=== PATIENT | female | born 1955 | race American Indian/Alaskan Native ===

== ENCOUNTER 2017-11-03 01:33 | Inpatient (IN) | payer OTHER ==
[2017-11-03] MEDS ORDERED: ATROVENT IH ONE (01:54)
[2017-11-03] MEDS ORDERED: PROVENTIL IH ONE (01:54)
--- NOTE | 2017-11-03 02:00 | Emergency Department Report ---
HPI - General Time Seen by Provider: 11/03/17 01:43 - HPI HPI: Room 23 The patient is a 62-year-old female presenting with a chief complaint of altered mental status last hypoxia. Per EMS the patient's last known well time was approximately 18:00. EMS reports family came home and found the patient unresponsive with agonal respirations and vomitus on her face. EMS was called. Upon arrival to the ED the patient had agonal respirations and was hypoxic with an SPO2 in the 80s. Subsequently patient was intubated using RSI Location: [See above] Duration: [See above] Quality: [See above] Severity: [See above] Modifying factors: [see above] Context: [see above] Mode of transportation: [not driving] ED Past Medical Hx - Past Medical History Hx Hypertension: Yes Hx COPD: Yes - Surgical History Additional Surgical History: Unknown - Family History Family history: no significant - Social History Smoking Status: Unknown if ever smoked - Medications Home Medications: Home Medications Medication Instructions Recorded Confirmed Last Taken Type Aspirin [Aspirin TAB] 325 mg PO DAILY 09/16/13 10/05/14 10/03/14 History amLODIPine [Norvasc] 10 mg PO DAILY 09/16/13 10/05/14 10/04/14 History Nitroglycerin [Nitrostat] 1 tab PO PRN PRN 10/05/14 10/05/14 10/05/14 History ED Review of Systems ROS: Stated complaint: RESPIRATORY DISTRESS Other details as noted in HPI Comment: Unobtainable due to pts medical conditions Physical Exam - Physical Exam Physical Exam: GENERAL: The patient is well-developed well-nourished female lying on stretcher with orange-colored emesis covering her face. Grossly obtunded HEENT: Normocephalic. Atraumatic. Pupils 3 mm- 2mm bilaterally NECK: Trachea midline CHEST/LUNGS: Faint wheezing auscultated bilaterally after intubation. HEART/CARDIOVASCULAR: Regular. There is no tachycardia. There is no gallop rub or murmur. ABDOMEN: Abdomen is soft, nontender. Patient has normal bowel sounds. There is no abdominal distention. SKIN: There is no rash. There is no edema. There is no diaphoresis. NEURO: The patient is grossly obtunded but moves all extremities well MUSCULOSKELETAL:There is no evidence of acute injury. - Intubation Time Out Performed: No Sedative: Versed Mg Given: 5 Paralytic: Succinylcholine Mg Given: 100 Laryngoscope: Amrita Size: 3 ET Tube Size: 7 Tube Secured Depth (cm): 21 Tube Secured Location: lips Tube Placement Confirmation: visualized tube passing t, equal breath sounds bilat, no breath sounds over epi, confirmation by capnometr Patient Tolerated Procedure: well, no complications Intubation Complications: none ED Medical Decision Making - Lab Data Result diagrams: 11/03/17 02:17 11/03/17 02:17 - Radiology Data Radiology results: report reviewed (CT head), image reviewed (CT head, chest x- ray) interpreted by me: Chest x-ray-ET tube place - Differential Diagnosis respiratory failure, COPD, ICH, ACS Critical care attestation.: If time is entered above; I have spent that time in minutes in the direct care of this critically ill patient, excluding procedure time. ED Disposition Clinical Impression: Respiratory failure, Altered mental status, Hyperammonemia Disposition: 09 OP ADMIT IP TO THIS HOSP Is pt being admited?: Yes Does the pt Need Aspirin: Yes Condition: Serious Referrals: PRIMARY CARE,MD [Primary Care Provider] - 3-5 Days Time of Disposition: 05:18 (hospitalist notified (Dr Isaac))
[2017-11-03] MEDS ORDERED: ATIVAN ONE (02:14)
[2017-11-03] MEDS ORDERED: ATIVAN IV ONE (02:14)
[2017-11-03] MEDS ORDERED: ZOFRAN ONE (02:15)
[2017-11-03 02:34] LABS: Hematocrit 44.5 % (30.3-42.9); Hemoglobin 14.9 gm/dl (10.1-14.3); Mean Corpuscular HGB Conc 34 % (30-34); Mean Corpuscular Hemoglobin 33 pg (28-32); Mean Corpuscular Volume 97 fl (79-97); Platelet Count 119 K/mm3 (140-440); Red Blood Count 4.58 M/mm3 (3.65-5.03); Red Cell Distribution Width 13.4 % (13.2-15.2)
--- NOTE | 2017-11-03 02:41 | XRay Report ---
FINAL REPORT PROCEDURE: XR CHEST 1V AP TECHNIQUE: Chest radiograph anteroposterior view. CPT 61987 HISTORY: respiratory arrest, status post intubation COMPARISON: No prior studies are available for comparison. FINDINGS: Heart: Normal. Mediastinum/Vessels: Normal. Lungs/Pleural space: There are no infiltrates, effusions or pneumothoraces.. Bony thorax: No acute osseous abnormality. Life support devices: Endotracheal tube is in the mid trachea.. IMPRESSION: No acute cardiopulmonary abnormality. Endotracheal tube is in the mid trachea.
[2017-11-03 02:52] LABS: Creatine Kinase MB 5.1 ng/mL (0.0-4.0)
[2017-11-03 02:53] LABS: Alanine Aminotransferase 43 units/L (7-56); Albumin 4.6 g/dL (3.9-5); BUN/Creatinine Ratio 18; Blood Urea Nitrogen 14 mg/dL (7-17); Calcium 8.7 mg/dL (8.4-10.2); Hemolysis Index 90
[2017-11-03] MEDS ORDERED: ARTIFICIAL TEARS OPHTH OINT OU PRN (03:27)
[2017-11-03] MEDS ORDERED: VASELINE LIP THERAPY TP PRN (03:27)
[2017-11-03] MEDS ORDERED: MAGNESIUM SULFATE 2GM/50ML 2 GM/50 ML BAG IV ONE (03:29)
[2017-11-03] MEDS ORDERED: NACL 0.9% 1000 ML 1,000 ML ONE ×2 (03:32→07:36)
[2017-11-03 03:49] LABS: INR 1.02 (0.87-1.13)
[2017-11-03 03:50] LABS: Partial Thromboplastin Time 27.4 Sec. (24.2-36.6)
[2017-11-03 04:00] LABS: Band Neutrophils # (Manual) 0.8 K/mm3; Total Cells Counted 100
[2017-11-03] MEDS ORDERED: MIDAZOLAM 100 MG in NACL 0.9% 80 ML IV SCH (04:00)
[2017-11-03 04:01] LABS: Large Platelets Few; Platelet Estimate Consistent w Auto; RBC Morphology Normal
[2017-11-03] MEDS ORDERED: CEPHULAC FEEDTUBE ONE (04:09)
--- NOTE | 2017-11-03 05:00 | Cat Scan Report ---
FINAL REPORT PROCEDURE: CT HEAD/BRAIN WO CON TECHNIQUE: Computerized tomography of the head was performed without contrast material. HISTORY: altered mental status COMPARISON: No prior studies are available for comparison. FINDINGS: Skull and scalp: Normal. Paranasal sinuses: There fluid in the sphenoid sinus.. Ventricles and subarachnoid spaces: Normal. Cerebrum: No evidence of hemorrhage, acute infarction or mass. There is an old lacunar infarct defect in the right periventricular white matter. Cerebellum and brainstem: No evidence of hemorrhage, acute infarction or mass. Vasculature: Normal. Comments: None. IMPRESSION: There is no hemorrhage, edema, mass, mass effect or midline shift. There is an old lacunar infarct defect in the right periventricular white matter. There is sphenoid sinusitis.
[2017-11-03] MEDS ORDERED: SODIUM CHLORIDE FLUSH SYRINGE 10 ML IV PRN (06:07)
[2017-11-03] MEDS ORDERED: ZOFRAN IV PRN (06:07)
[2017-11-03] MEDS ORDERED: TYLENOL PO PRN (06:07)
--- NOTE | 2017-11-03 06:25 | History and Physical Report ---
History of Present Illness Date of examination: 11/03/17 Chief complaint: Shortness of breath and altered mental status per the patient's History of present illness: Patient is a 62-year-old -[place] female with history of hypertension and COPD, who was brought to the ED via EMS on account of 3 weeks history of worsening shortness of breath. Of note, history was obtained from the because the patient is intubated. The stated that her shortness of breath became worse last night. At some point, she went to the bathroom and subsequently, he found her on the floor passed out and responsive. He then called 911. No reported preceding history of fever, cough, headaches, chest pain, nausea or vomiting. Past History Past Medical History: COPD, hypertension Past Surgical History: No surgical history Social history: smoking (ex-smoker, quit 4 years. No reported history of alcohol or illicit drug use ) Family history: other (asthma) Medications and Allergies Allergies Allergy/AdvReac Type Severity Reaction Status Date / Time Penicillins Allergy Rash Verified 10/05/14 01:41 Home Medications Medication Instructions Recorded Confirmed Last Taken Type Aspirin [Aspirin TAB] 325 mg PO DAILY 09/16/13 10/05/14 10/03/14 History amLODIPine [Norvasc] 10 mg PO DAILY 09/16/13 10/05/14 10/04/14 History Nitroglycerin [Nitrostat] 1 tab PO PRN PRN 10/05/14 10/05/14 10/05/14 History Active Meds: Active Medications Acetaminophen (Tylenol) 650 mg PO Q6HR PRN PRN Reason: For Pain/Fever/Headache Enoxaparin Sodium (Lovenox) 40 mg SUB-Q QDAY PARTH Famotidine (Pepcid) 20 mg IV BID PARTH Hydrophilic Ointment (Vaseline Lip Therapy) 1 applic TP Q2HR PRN PRN Reason: Dry Lips Midazolam HCl 100 mg/ Sodium (Chloride) 100 mls @ 2 mls/hr IV TITR PAR[facility]; Protocol Last Admin: 11/03/17 04:00 Dose: 2 mg/hr, 2 mls/hr Levofloxacin/Dextrose (Levaquin 750mg/150ml) 750 mg in 150 mls @ 100 mls/hr IV Q24HR PARTH; Protocol Sodium Chloride (Nacl 0.9% 1000 Ml) 1,000 mls @ 100 mls/hr IV DIRECT [facility] Methylprednisolone Sodium Succinate (Solu-Medrol) 125 mg IV Q8HR [facility] Multi-Ingred Cream/Lotion/Oil/Oint (Artificial Tears Ophth Oint) 1 applic OU Q4HR PRN PRN Reason: Dry Eye(s) Ondansetron HCl (Zofran) 4 mg IV Q8H PRN PRN Reason: Nausea And Vomiting Sodium Chloride (Sodium Chloride Flush Syringe 10 Ml) 10 ml IV BID PARTH Sodium Chloride (Sodium Chloride Flush Syringe 10 Ml) 10 ml IV PRN PRN PRN Reason: LINE FLUSH Review of Systems ROS unobtainable: due to endotracheal tube Exam - Constitutional Vitals: Temp Pulse Resp BP Pulse Ox 105 H 18 97/61 96 11/03/17 04:11 11/03/17 02:54 11/03/17 04:11 11/03/17 04:11 General appearance: Present: no acute distress, other (patient is intubated and sedated) - EENT Eyes: Present: PERRL ENT: other (endotracheal tube in place) - Neck Neck: Present: supple - Respiratory Respiratory effort: normal Respiratory: bilateral: diminished - Cardiovascular Rhythm: other (tachycardia with regular rhythm) Heart Sounds: Present: S1 & S2 - Extremities Extremities: pulses symmetrical, No edema - Abdominal General gastrointestinal: Present: soft, non-tender, non-distended, normal bowel sounds - Integumentary Integumentary: Present: warm, dry - Psychiatric Psychiatric: other (could not be assessed because patient is intubated and sedated) - Neurologic Neurologic: other (could not be assessed because patient is intubated and sedated) Results - Labs CBC & Chem 7: 11/03/17 02:17 11/03/17 02:17 Labs: Laboratory Last Values WBC 12.9 K/mm3 (4.5-11.0) H 11/03/17 02:17 RBC 4.58 M/mm3 (3.65-5.03) 11/03/17 02:17 Hgb 14.9 gm/dl (10.1-14.3) H 11/03/17 02:17 Hct 44.5 % (30.3-42.9) H 11/03/17 02:17 MCV 97 fl (79-97) 11/03/17 02:17 MCH 33 pg (28-32) H 11/03/17 02:17 MCHC 34 % (30-34) 11/03/17 02:17 RDW 13.4 % (13.2-15.2) 11/03/17 02:17 Plt Count 119 K/mm3 (140-440) L 11/03/17 02:17 Add Manual Diff Complete 11/03/17 02:17 Total Counted 100 11/03/17 02:17 Seg Neuts % (Manual) 61.0 % (40.0-70.0) 11/03/17 02:17 Band Neutrophils % 6.0 % 11/03/17 02:17 Lymphocytes % (Manual) 29.0 % (13.4-35.0) 11/03/17 02:17 Reactive Lymphs % (Man) 0 % 11/03/17 02:17 Monocytes % (Manual) 1.0 % (0.0-7.3) 11/03/17 02:17 Eosinophils % (Manual) 1.0 % (0.0-4.3) 11/03/17 02:17 Basophils % (Manual) 2.0 % (0.0-1.8) H 11/03/17 02:17 Metamyelocytes % 0 % 11/03/17 02:17 Myelocytes % 0 % 11/03/17 02:17 Promyelocytes % 0 % 11/03/17 02:17 Blast Cells % 0 % 11/03/17 02:17 Nucleated RBC % Not Reportable 11/03/17 02:17 Seg Neutrophils # Man 7.9 K/mm3 (1.8-7.7) H 11/03/17 02:17 Band Neutrophils # 0.8 K/mm3 11/03/17 02:17 Lymphocytes # (Manual) 3.7 K/mm3 (1.2-5.4) 11/03/17 02:17 Abs React Lymphs (Man) 0.0 K/mm3 11/03/17 02:17 Monocytes # (Manual) 0.1 K/mm3 (0.0-0.8) 11/03/17 02:17 Eosinophils # (Manual) 0.1 K/mm3 (0.0-0.4) 11/03/17 02:17 Basophils # (Manual) 0.3 K/mm3 (0.0-0.1) H 11/03/17 02:17 Metamyelocytes # 0.0 K/mm3 11/03/17 02:17 Myelocytes # 0.0 K/mm3 11/03/17 02:17 Promyelocytes # 0.0 K/mm3 11/03/17 02:17 Blast Cells # 0.0 K/mm3 11/03/17 02:17 WBC Morphology Not Reportable 11/03/17 02:17 Hypersegmented Neuts Not Reportable 11/03/17 02:17 Hyposegmented Neuts Not Reportable 11/03/17 02:17 Hypogranular Neuts Not Reportable 11/03/17 02:17 Smudge Cells Not Reportable 11/03/17 02:17 Toxic Granulation Not Reportable 11/03/17 02:17 Toxic Vacuolation Not Reportable 11/03/17 02:17 Dohle Bodies Not Reportable 11/03/17 02:17 Pelger-Huet Anomaly Not Reportable 11/03/17 02:17 Jose Rods Not Reportable 11/03/17 02:17 Platelet Estimate Consistent w auto 11/03/17 02:17 Clumped Platelets Not Reportable 11/03/17 02:17 Plt Clumps, EDTA Not Reportable 11/03/17 02:17 Large Platelets Few 11/03/17 02:17 Giant Platelets Not Reportable 11/03/17 02:17 Platelet Satelliting Not Reportable 11/03/17 02:17 Plt Morphology Comment Not Reportable 11/03/17 02:17 RBC Morphology Normal 11/03/17 02:17 Dimorphic RBCs Not Reportable 11/03/17 02:17 Polychromasia Not Reportable 11/03/17 02:17 Hypochromasia Not Reportable 11/03/17 02:17 Poikilocytosis Not Reportable 11/03/17 02:17 Anisocytosis Not Reportable 11/03/17 02:17 Microcytosis Not Reportable 11/03/17 02:17 Macrocytosis Not Reportable 11/03/17 02:17 Spherocytes Not Reportable 11/03/17 02:17 Pappenheimer Bodies Not Reportable 11/03/17 02:17 Sickle Cells Not Reportable 11/03/17 02:17 Target Cells Not Reportable 11/03/17 02:17 Tear Drop Cells Not Reportable 11/03/17 02:17 Ovalocytes Not Reportable 11/03/17 02:17 Helmet Cells Not Reportable 11/03/17 02:17 Francois-[place] Bodies Not Reportable 11/03/17 02:17 [place] Rings Not Reportable 11/03/17 02:17 [place] Cells Not Reportable 11/03/17 02:17 Bite Cells Not Reportable 11/03/17 02:17 Crenated Cell Not Reportable 11/03/17 02:17 Elliptocytes Not Reportable 11/03/17 02:17 Acanthocytes (Spur) Not Reportable 11/03/17 02:17 Rouleaux Not Reportable 11/03/17 02:17 Hemoglobin C Crystals Not Reportable 11/03/17 02:17 Schistocytes Not Reportable 11/03/17 02:17 Malaria parasites Not Reportable 11/03/17 02:17 Dennis Bodies Not Reportable 11/03/17 02:17 Hem Pathologist Commnt No 11/03/17 02:17 PT 13.9 Sec. (12.2-14.9) 11/03/17 02:57 INR 1.02 (0.87-1.13) 11/03/17 02:57 APTT 27.4 Sec. (24.2-36.6) 11/03/17 02:57 POC ABG pH 7.274 (7.35-7.45) L 11/03/17 03:14 POC ABG pCO2 66.0 (35-45) H 11/03/17 03:14 POC ABG pO2 552 (80-105) H 11/03/17 03:14 POC ABG HCO3 30.6 11/03/17 03:14 POC ABG Total CO2 33 11/03/17 03:14 POC ABG O2 Sat 100 11/03/17 03:14 POC ABG Base Excess 4 11/03/17 03:14 FiO2 100 % 11/03/17 03:14 Sodium 137 mmol/L (137-145) 11/03/17 02:17 Potassium 4.7 mmol/L (3.6-5.0) 11/03/17 02:17 Chloride 92.5 mmol/L (98-107) L 11/03/17 02:17 Carbon Dioxide 21 mmol/L (22-30) L 11/03/17 02:17 Anion Gap 28 mmol/L 11/03/17 02:17 BUN 14 mg/dL (7-17) 11/03/17 02:17 Creatinine 0.8 mg/dL (0.7-1.2) 11/03/17 02:17 Estimated GFR > 60 ml/min 11/03/17 02:17 BUN/Creatinine Ratio 18 % 11/03/17 02:17 Glucose 229 mg/dL (65-100) H 11/03/17 02:17 Calcium 8.7 mg/dL (8.4-10.2) 11/03/17 02:17 Total Bilirubin 0.40 mg/dL (0.1-1.2) 11/03/17 02:17 AST 52 units/L (5-40) H 11/03/17 02:17 ALT 43 units/L (7-56) 11/03/17 02:17 Alkaline Phosphatase 105 units/L (35-129) 11/03/17 02:17 Ammonia 145.0 umol/L (25-60) H 11/03/17 02:17 Total Creatine Kinase 236 units/L (30-135) H 11/03/17 02:17 CK-MB (CK-2) 5.1 ng/mL (0.0-4.0) H 11/03/17 02:17 CK-MB (CK-2) Rel Index 2.1 (0-4) 11/03/17 02:17 Troponin T < 0.010 ng/mL (0.00-0.029) 11/03/17 02:17 NT-Pro-B Natriuret Pep 40.60 pg/mL (0-900) 11/03/17 02:17 Total Protein 6.8 g/dL (6.3-8.2) 11/03/17 02:17 Albumin 4.6 g/dL (3.9-5) 11/03/17 02:17 Albumin/Globulin Ratio 2.1 % 11/03/17 02:17 Assessment and Plan Assessment and plan: Acute respiratory failure with hypercapnia -Status post intubation -Will monitor with ABG level Acute encephalopathy, probably secondary to carbon dioxide narcosis -Head CT scan is neg -Will monitor clinically Acute COPD exacerbation -Patient will be placed on IV steroid and IV antibiotic SIRS/possible sepsis, exact source of infection unknown -Will place patient on IV antibiotic with levaquin -Follow up lactic acid level, sputum, urine and blood culture results -Chest x-ray is negative for acute infection Hyperglycemia -Will check hemoglobin A1c level Elevated hemoglobin/hematocrit, likely secondary to hemoconcentration -Will hydrate patient and monitor her H&H Prophylaxis -DVT prophylaxis with Lovenox and GI prophylaxis with famotidine I spent 45 minutes providing critical care to this seriously ill patient who requires frequent reassessment of her respiratory status.
[2017-11-03 07:39] LABS: Creatine Kinase MB 10.6 ng/mL (0.0-4.0)
[2017-11-03 07:41] LABS: Amorphous Crystals,Urine 1+; Bacteria,Urine 1+ /HPF (Negative); Bilirubin,Urine NEG (Negative); Blood,Urine SM (Negative); Color,Urine Yellow (Yellow); Mucus,Urine FEW /HPF; Urobilinogen,Urine < 2.0 mg/dL (<2.0)
[2017-11-03] MEDS: NACL 0.9% 1000 ML 1,000 ML IV SCH ×2 (07:45→13:28)
[2017-11-03] MEDS ORDERED: NACL 0.9% 1000 ML IV ONE (08:35)
[2017-11-03] MEDS ORDERED: VANCOMYCIN VIAL IV ONE (08:35)
[2017-11-03] MEDS ORDERED: VANCOMYCIN PHARMACY TO DOSE IV SCH (09:00)
[2017-11-03 09:07] LABS: Chol/HDL Ratio 1.53 %
[2017-11-03] MEDS: PEPCID IV SCH ×2 (10:06→21:01)
[2017-11-03] MEDS: LEVAQUIN 750MG/150ML 750 MG/150 ML BAG IV SCH (10:06)
[2017-11-03] MEDS: LOVENOX SUB-Q SCH (10:06)
[2017-11-03] MEDS: SODIUM CHLORIDE FLUSH SYRINGE 10 ML IV SCH ×2 (10:06→21:02)
[2017-11-03] MEDS ORDERED: QUELICIN ONE (11:07)
[2017-11-03] MEDS ORDERED: VERSED IV ONE (11:07)
[2017-11-03] MEDS ORDERED: XYLOCAINE CARDIAC IV ONE (11:07)
[2017-11-03] MEDS ORDERED: VANCOMYCIN 1,500 MG in NACL 0.9% 500 ML 500 ML IV SCH (12:00)
--- NOTE | 2017-11-03 12:06 | Progress Note ---
Assessment and Plan Assessment and plan: Patient is a 62-year-old -[place] female with history of hypertension and COPD, who was brought to the ED via EMS on account of 3 weeks history of worsening shortness of breath. Of note, history was obtained from the because the patient is intubated. The stated that her shortness of breath became worse last night. At some point, she went to the bathroom and subsequently, he found her on the floor passed out and responsive. He then called 911. No reported preceding history of fever, cough, headaches, chest pain, nausea or vomiting. Acute respiratory failure with hypercapnia -Status post intubation -Will monitor with ABG level Acute encephalopathy, probably secondary to carbon dioxide narcosis -Head CT scan is neg except for what noted old lacunar infarct on the right periventricular white matter -Will monitor clinically Acute COPD exacerbation -Patient will be placed on IV steroid and IV antibiotic SIRS/possible sepsis, exact source of infection unknown -Will place patient on IV antibiotic with levaquin -Follow up lactic acid level, sputum, urine and blood culture results -Chest x-ray is negative for acute infection on initial exam appears to highly suspicious of aspiration. Hyperglycemia -Will check hemoglobin A1c level Elevated hemoglobin/hematocrit, likely secondary to hemoconcentration -Will hydrate patient and monitor her H&H Thrombocytopenia * Monitor closely. NSTEMI type II -Check echocardiogram and obtain cardiology consultation. Prophylaxis -DVT prophylaxis with Lovenox and GI prophylaxis with famotidine I spent additional 30 minutes providing critical care to this seriously ill patient who requires frequent reassessment of her respiratory status. History Interval history: Patient is seen today for: Acute respiratory failure . Seen and examined at bedside; 24hour events reviewed; nursing staff ; remains on full ventilatory support. No adverse overnight events reported to me; Denies any chest pain, nausea, vomiting, diarrhea No fever noted blood pressure controlled Hospitalist Physical - Physical exam Narrative exam: VITAL SIGNS: Reviewed. GENERAL: The patient appeared on full ventilatory support. Vital signs as documented. HEAD: No signs of head trauma. EYES: Pupils are equal. EARS: Unable to examine MOUTH: ET tube in place NECK: No adenopathy, no JVD. CHEST: Chest with transmitted breath sounds breath sounds bilaterally. No wheezes, rales, or rhonchi. CARDIAC: Regular rate and rhythm. S1 and S2, without murmurs, gallops, or rubs. VASCULAR: No Edema. Peripheral pulses normal and equal in all extremities. ABDOMEN: Soft, No sign of distention. No rebound or guarding, and no masses palpated. Bowel Sounds normal. MUSCULOSKELETAL: Range of motion unable to assess Extremities without clubbing, cyanosis or edema. NEUROLOGIC EXAM: Sedated PSYCHIATRIC: Unable to assess SKIN: No rash or lesions. - Constitutional Vitals: Temp Pulse Resp BP Pulse Ox 97.5 F L 95 H 21 111/78 96 11/03/17 09:44 11/03/17 10:35 11/03/17 10:00 11/03/17 09:00 11/03/17 10:35 General appearance: Present: no acute distress, other (patient is intubated and sedated) Results - Labs CBC & Chem 7: 11/04/17 04:09 11/04/17 04:09 Labs: Laboratory Last Values WBC 12.9 K/mm3 (4.5-11.0) H 11/03/17 02:17 RBC 4.58 M/mm3 (3.65-5.03) 11/03/17 02:17 Hgb 14.9 gm/dl (10.1-14.3) H 11/03/17 02:17 Hct 44.5 % (30.3-42.9) H 11/03/17 02:17 MCV 97 fl (79-97) 11/03/17 02:17 MCH 33 pg (28-32) H 11/03/17 02:17 MCHC 34 % (30-34) 11/03/17 02:17 RDW 13.4 % (13.2-15.2) 11/03/17 02:17 Plt Count 119 K/mm3 (140-440) L 11/03/17 02:17 Add Manual Diff Complete 11/03/17 02:17 Total Counted 100 11/03/17 02:17 Seg Neuts % (Manual) 61.0 % (40.0-70.0) 11/03/17 02:17 Band Neutrophils % 6.0 % 11/03/17 02:17 Lymphocytes % (Manual) 29.0 % (13.4-35.0) 11/03/17 02:17 Reactive Lymphs % (Man) 0 % 11/03/17 02:17 Monocytes % (Manual) 1.0 % (0.0-7.3) 11/03/17 02:17 Eosinophils % (Manual) 1.0 % (0.0-4.3) 11/03/17 02:17 Basophils % (Manual) 2.0 % (0.0-1.8) H 11/03/17 02:17 Metamyelocytes % 0 % 11/03/17 02:17 Myelocytes % 0 % 11/03/17 02:17 Promyelocytes % 0 % 11/03/17 02:17 Blast Cells % 0 % 11/03/17 02:17 Nucleated RBC % Not Reportable 11/03/17 02:17 Seg Neutrophils # Man 7.9 K/mm3 (1.8-7.7) H 11/03/17 02:17 Band Neutrophils # 0.8 K/mm3 11/03/17 02:17 Lymphocytes # (Manual) 3.7 K/mm3 (1.2-5.4) 11/03/17 02:17 Abs React Lymphs (Man) 0.0 K/mm3 11/03/17 02:17 Monocytes # (Manual) 0.1 K/mm3 (0.0-0.8) 11/03/17 02:17 Eosinophils # (Manual) 0.1 K/mm3 (0.0-0.4) 11/03/17 02:17 Basophils # (Manual) 0.3 K/mm3 (0.0-0.1) H 11/03/17 02:17 Metamyelocytes # 0.0 K/mm3 11/03/17 02:17 Myelocytes # 0.0 K/mm3 11/03/17 02:17 Promyelocytes # 0.0 K/mm3 11/03/17 02:17 Blast Cells # 0.0 K/mm3 11/03/17 02:17 WBC Morphology Not Reportable 11/03/17 02:17 Hypersegmented Neuts Not Reportable 11/03/17 02:17 Hyposegmented Neuts Not Reportable 11/03/17 02:17 Hypogranular Neuts Not Reportable 11/03/17 02:17 Smudge Cells Not Reportable 11/03/17 02:17 Toxic Granulation Not Reportable 11/03/17 02:17 Toxic Vacuolation Not Reportable 11/03/17 02:17 Dohle Bodies Not Reportable 11/03/17 02:17 Pelger-Huet Anomaly Not Reportable 11/03/17 02:17 Jose Rods Not Reportable 11/03/17 02:17 Platelet Estimate Consistent w auto 11/03/17 02:17 Clumped Platelets Not Reportable 11/03/17 02:17 Plt Clumps, EDTA Not Reportable 11/03/17 02:17 Large Platelets Few 11/03/17 02:17 Giant Platelets Not Reportable 11/03/17 02:17 Platelet Satelliting Not Reportable 11/03/17 02:17 Plt Morphology Comment Not Reportable 11/03/17 02:17 RBC Morphology Normal 11/03/17 02:17 Dimorphic RBCs Not Reportable 11/03/17 02:17 Polychromasia Not Reportable 11/03/17 02:17 Hypochromasia Not Reportable 11/03/17 02:17 Poikilocytosis Not Reportable 11/03/17 02:17 Anisocytosis Not Reportable 11/03/17 02:17 Microcytosis Not Reportable 11/03/17 02:17 Macrocytosis Not Reportable 11/03/17 02:17 Spherocytes Not Reportable 11/03/17 02:17 Pappenheimer Bodies Not Reportable 11/03/17 02:17 Sickle Cells Not Reportable 11/03/17 02:17 Target Cells Not Reportable 11/03/17 02:17 Tear Drop Cells Not Reportable 11/03/17 02:17 Ovalocytes Not Reportable 11/03/17 02:17 Helmet Cells Not Reportable 11/03/17 02:17 [place] Bodies Not Reportable 11/03/17 02:17 Cummings Rings Not Reportable 11/03/17 02:17 [place] Cells Not Reportable 11/03/17 02:17 Bite Cells Not Reportable 11/03/17 02:17 Crenated Cell Not Reportable 11/03/17 02:17 Elliptocytes Not Reportable 11/03/17 02:17 Acanthocytes (Spur) Not Reportable 11/03/17 02:17 Rouleaux Not Reportable 11/03/17 02:17 Hemoglobin C Crystals Not Reportable 11/03/17 02:17 Schistocytes Not Reportable 11/03/17 02:17 Malaria parasites Not Reportable 11/03/17 02:17 Dennis Bodies Not Reportable 11/03/17 02:17 Hem Pathologist Commnt No 11/03/17 02:17 PT 13.9 Sec. (12.2-14.9) 11/03/17 02:57 INR 1.02 (0.87-1.13) 11/03/17 02:57 APTT 27.4 Sec. (24.2-36.6) 11/03/17 02:57 POC ABG pH 7.274 (7.35-7.45) L 11/03/17 03:14 POC ABG pCO2 66.0 (35-45) H 11/03/17 03:14 POC ABG pO2 552 (80-105) H 11/03/17 03:14 POC ABG HCO3 30.6 11/03/17 03:14 POC ABG Total CO2 33 11/03/17 03:14 POC ABG O2 Sat 100 11/03/17 03:14 POC ABG Base Excess 4 11/03/17 03:14 FiO2 100 % 11/03/17 03:14 Sodium 137 mmol/L (137-145) 11/03/17 02:17 Potassium 4.7 mmol/L (3.6-5.0) 11/03/17 02:17 Chloride 92.5 mmol/L (98-107) L 11/03/17 02:17 Carbon Dioxide 21 mmol/L (22-30) L 11/03/17 02:17 Anion Gap 28 mmol/L 11/03/17 02:17 BUN 14 mg/dL (7-17) 11/03/17 02:17 Creatinine 0.8 mg/dL (0.7-1.2) 11/03/17 02:17 Estimated GFR > 60 ml/min 11/03/17 02:17 BUN/Creatinine Ratio 18 % 11/03/17 02:17 Glucose 229 mg/dL (65-100) H 11/03/17 02:17 Hemoglobin A1c 5.2 % (4-6) 11/03/17 06:56 Lactic Acid 2.30 mmol/L (0.7-2.0) H* 11/03/17 06:56 Calcium 8.7 mg/dL (8.4-10.2) 11/03/17 02:17 Total Bilirubin 0.40 mg/dL (0.1-1.2) 11/03/17 02:17 AST 52 units/L (5-40) H 11/03/17 02:17 ALT 43 units/L (7-56) 11/03/17 02:17 Alkaline Phosphatase 105 units/L (35-129) 11/03/17 02:17 Ammonia 145.0 umol/L (25-60) H 11/03/17 02:17 Total Creatine Kinase 1369 units/L (30-135) H 11/03/17 06:56 CK-MB (CK-2) 10.6 ng/mL (0.0-4.0) H 11/03/17 06:56 CK-MB (CK-2) Rel Index 0.7 (0-4) 11/03/17 06:56 Troponin T 0.081 ng/mL (0.00-0.029) H D 11/03/17 06:56 NT-Pro-B Natriuret Pep 40.60 pg/mL (0-900) 11/03/17 02:17 Total Protein 6.8 g/dL (6.3-8.2) 11/03/17 02:17 Albumin 4.6 g/dL (3.9-5) 11/03/17 02:17 Albumin/Globulin Ratio 2.1 % 11/03/17 02:17 Triglycerides 42 mg/dL (2-149) 11/03/17 06:56 Cholesterol 117 mg/dL (50-199) 11/03/17 06:56 LDL Cholesterol Direct 45 mg/dL (50-130) L 11/03/17 06:56 HDL Cholesterol 76 mg/dL (40-59) H 11/03/17 06:56 Cholesterol/HDL Ratio 1.53 % 11/03/17 06:56 Urine Color Yellow (Yellow) 11/03/17 Unknown Urine Turbidity Clear (Clear) 11/03/17 Unknown Urine pH 8.0 (5.0-7.0) H 11/03/17 Unknown Ur Specific [place] 1.013 (1.003-1.030) 11/03/17 Unknown Urine Protein 100 mg/dl mg/dL (Negative) 11/03/17 Unknown Urine Glucose (UA) Neg mg/dL (Negative) 11/03/17 Unknown Urine Ketones Neg mg/dL (Negative) 11/03/17 Unknown Urine Blood Sm (Negative) 11/03/17 Unknown Urine Nitrite Neg (Negative) 11/03/17 Unknown Urine Bilirubin Neg (Negative) 11/03/17 Unknown Urine Urobilinogen < 2.0 mg/dL (<2.0) 11/03/17 Unknown Ur Leukocyte Esterase Neg (Negative) 11/03/17 Unknown Urine WBC (Auto) 7.0 /HPF (0.0-6.0) H 11/03/17 Unknown Urine RBC (Auto) 19.0 /HPF (0.0-6.0) 11/03/17 Unknown U Epithel Cells (Auto) 2.0 /HPF (0-13.0) 11/03/17 Unknown Urine Bacteria (Auto) 1+ /HPF (Negative) 11/03/17 Unknown Amorphous Crystals 1+ 11/03/17 Unknown Urine Mucus Few /HPF 11/03/17 Unknown - Imaging and Cardiology Chest x-ray: image reviewed (no acute pathology ET tube noted) CT Scan - head: image reviewed (old CVA appreciated)
[2017-11-03 12:42] LABS: Creatine Kinase MB 10.7 ng/mL (0.0-4.0)
[2017-11-03] MEDS: VANCOMYCIN 1,250 MG in NACL 0.9% 250ML 250 ML IV SCH (13:40)
--- NOTE | 2017-11-03 16:48 | Consultation ---
History of Present Illness Consult date: 11/03/17 Requesting physician: HANK ORTEGA Reason for consult: COPD, other (Acute Hypercapnic Respiratory Failure on MVS) History of present illness: PULMONARY/CCM CONSULT NOTE (Full dictation # [id number]) Please see dictated notes for full details Past History Past Medical History: COPD, hypertension Past Surgical History: No surgical history Social history: smoking (ex-smoker, quit 4 years. No reported history of alcohol or illicit drug use ) Family history: other (asthma) Medications and Allergies Allergies Allergy/AdvReac Type Severity Reaction Status Date / Time Penicillins Allergy Rash Verified 10/05/14 01:41 Home Medications Medication Instructions Recorded Confirmed Last Taken Type Aspirin [Aspirin TAB] 325 mg PO DAILY 09/16/13 11/03/17 1 Day Ago History ~11/02/17 amLODIPine [Norvasc] 10 mg PO DAILY 09/16/13 11/03/17 1 Day Ago History ~11/02/17 Nitroglycerin [Nitrostat] 1 tab PO PRN PRN 10/05/14 10/05/14 10/05/14 History Active Meds: Active Medications Acetaminophen (Tylenol) 650 mg PO Q6H PRN PRN Reason: For Pain/Fever/Headache Enoxaparin Sodium (Lovenox) 40 mg SUB-Q QDAY [facility] Last Admin: 11/03/17 10:06 Dose: 40 mg Famotidine (Pepcid) 20 mg IV BID [facility] Last Admin: 11/03/17 10:06 Dose: 20 mg Hydrophilic Ointment (Vaseline Lip Therapy) 1 applic TP Q2HR PRN PRN Reason: Dry Lips Midazolam HCl 100 mg/ Sodium (Chloride) 100 mls @ 2 mls/hr IV TITR [facility]; Protocol Last Titration: 11/03/17 13:30 Dose: 4 mg/hr, 4 mls/hr Levofloxacin/Dextrose (Levaquin 750mg/150ml) 750 mg in 150 mls @ 100 mls/hr IV Q24HR [facility]; Protocol Last Admin: 11/03/17 10:06 Dose: 100 mls/hr Sodium Chloride (Nacl 0.9% 1000 Ml) 1,000 mls @ 125 mls/hr IV DIRECT [facility] Last Admin: 11/03/17 13:28 Dose: 125 mls/hr Vancomycin HCl 1,250 mg/ (Sodium Chloride) 262.5 mls @ 166.667 mls/hr IV Q12H [facility] Last Admin: 11/03/17 13:40 Dose: 166.667 mls/hr Methylprednisolone Sodium Succinate (Solu-Medrol) 125 mg IV Q8HR [facility] Last Admin: 11/03/17 13:27 Dose: 125 mg Multi-Ingred Cream/Lotion/Oil/Oint (Artificial Tears Ophth Oint) 1 applic OU Q4HR PRN PRN Reason: Dry Eye(s) Ondansetron HCl (Zofran) 4 mg IV Q8H PRN PRN Reason: Nausea And Vomiting Sodium Chloride (Sodium Chloride Flush Syringe 10 Ml) 10 ml IV BID [facility] Last Admin: 11/03/17 10:06 Dose: 10 ml Sodium Chloride (Sodium Chloride Flush Syringe 10 Ml) 10 ml IV PRN PRN PRN Reason: LINE FLUSH Vancomycin HCl (Vancomycin Pharmacy To Dose) 1 each IV PKCONSULT [facility] Physical Examination Vital signs: Vital Signs Pulse Resp Pulse Ox 95 H 23 84 11/03/17 01:32 11/03/17 01:32 11/03/17 01:32 Results - Laboratory Findings CBC and BMP: 11/03/17 02:17 11/03/17 02:17 ABG POC ABG pH 7.274 (7.35-7.45) L 11/03/17 03:14 POC ABG pCO2 66.0 (35-45) H 11/03/17 03:14 POC ABG pO2 552 (80-105) H 11/03/17 03:14 POC ABG HCO3 30.6 11/03/17 03:14 POC ABG Total CO2 33 11/03/17 03:14 POC ABG O2 Sat 100 11/03/17 03:14 PT/INR, D-dimer PT 13.9 Sec. (12.2-14.9) 11/03/17 02:57 INR 1.02 (0.87-1.13) 11/03/17 02:57 Abnormal lab findings: Abnormal Labs 11/03/17 11/03/17 11/03/17 02:17 02:17 02:17 WBC 12.9 H Hgb 14.9 H Hct 44.5 H MCH 33 H Plt Count 119 L Basophils % (Manual) 2.0 H Seg Neutrophils # Man 7.9 H Basophils # (Manual) 0.3 H POC ABG pH POC ABG pCO2 POC ABG pO2 Chloride 92.5 L Carbon Dioxide 21 L Glucose 229 H Lactic Acid AST 52 H Ammonia 145.0 H Total Creatine Kinase 236 H CK-MB (CK-2) 5.1 H Troponin T LDL Cholesterol Direct HDL Cholesterol Urine pH Urine WBC (Auto) 11/03/17 11/03/17 11/03/17 03:14 06:56 06:56 WBC Hgb Hct MCH Plt Count Basophils % (Manual) Seg Neutrophils # Man Basophils # (Manual) POC ABG pH 7.274 L POC ABG pCO2 66.0 H POC ABG pO2 552 H Chloride Carbon Dioxide Glucose Lactic Acid 2.30 H* AST Ammonia Total Creatine Kinase 1369 H CK-MB (CK-2) 10.6 H Troponin T LDL Cholesterol Direct HDL Cholesterol Urine pH Urine WBC (Auto) 11/03/17 11/03/17 11/03/17 06:56 11:12 12:10 WBC Hgb Hct MCH Plt Count Basophils % (Manual) Seg Neutrophils # Man Basophils # (Manual) POC ABG pH POC ABG pCO2 POC ABG pO2 Chloride Carbon Dioxide Glucose Lactic Acid 2.20 H* AST Ammonia Total Creatine Kinase 1456 H CK-MB (CK-2) 10.7 H Troponin T 0.081 H D LDL Cholesterol Direct 45 L HDL Cholesterol 76 H Urine pH Urine WBC (Auto) 11/03/17 Unknown WBC Hgb Hct MCH Plt Count Basophils % (Manual) Seg Neutrophils # Man Basophils # (Manual) POC ABG pH POC ABG pCO2 POC ABG pO2 Chloride Carbon Dioxide Glucose Lactic Acid AST Ammonia Total Creatine Kinase CK-MB (CK-2) Troponin T LDL Cholesterol Direct HDL Cholesterol Urine pH 8.0 H Urine WBC (Auto) 7.0 H
[2017-11-03] MEDS: DIPRIVAN 10 MG/ML 1,000 MG/100 ML BOTTLE IV SCH (19:18)
[2017-11-03] MEDS: fentaNYL DRIP Premix 2,000 MCG/100 ML BAG IV SCH (19:20)
--- NOTE | 2017-11-03 19:38 | XRay Report ---
FINAL REPORT PROCEDURE: XR ABDOMEN 1V AP TECHNIQUE: AP supine portable radiograph of the abdomen was obtained at 11/03/2017 22:43 (T) . HISTORY: Check placement NGT COMPARISON: No prior studies are available for comparison. FINDINGS: NG tube is seen directed into the left side of the stomach. The side hole marker is located within the stomach. Stomach is moderately gas filled. Nonspecific bowel gas pattern present. No abnormal masses are seen. IMPRESSION: NG tube in good position.
[2017-11-03] MEDS: CEPHULAC PO SCH (21:03)
[2017-11-03 21:37] LABS: Hepatitis A Antibody IgM Non-Reactive (NonReactive); Hepatitis B Core IgM Non-Reactive (NonReactive); Hepatitis B Surface Antigen Non-Reactive (Negative); Hepatitis C Virus Antibody Non-Reactive (NonReactive)
[2017-11-03 21:49] LABS: C-Reactive Protein 1.4 mg/dL (0.00-1.30)
[2017-11-04] MEDS: NACL 0.9% 1000 ML 1,000 ML IV SCH ×3 (00:19→22:51)
[2017-11-04] MEDS: CEPHULAC PO SCH ×5 (00:19→23:06)
[2017-11-04] MEDS: VANCOMYCIN 1,250 MG in NACL 0.9% 250ML 250 ML IV SCH ×3 (00:24→23:12)
[2017-11-04 04:50] LABS: Hematocrit 36.7 % (30.3-42.9); Hemoglobin 12.6 gm/dl (10.1-14.3); Mean Corpuscular HGB Conc 34 % (30-34); Mean Corpuscular Hemoglobin 33 pg (28-32); Mean Corpuscular Volume 95 fl (79-97); Red Blood Count 3.86 M/mm3 (3.65-5.03); Red Cell Distribution Width 13.4 % (13.2-15.2)
[2017-11-04 05:02] LABS: BUN/Creatinine Ratio 25; Blood Urea Nitrogen 10 mg/dL (7-17); Calcium 7.9 mg/dL (8.4-10.2); Hemolysis Index 6
[2017-11-04 05:03] LABS: Platelet Count 78 K/mm3 (140-440)
--- NOTE | 2017-11-04 05:31 | XRay Report ---
FINAL REPORT PROCEDURE: XR CHEST 1V AP TECHNIQUE: Chest radiograph anteroposterior view. CPT 21323 HISTORY: follow up respiratory failure COMPARISON: No prior studies are available for comparison. FINDINGS: Heart: Normal. Mediastinum/Vessels: Normal. Lungs/Pleural space: Lungs are expanded. There are no infiltrates, effusions or pneumothoraces.. Bony thorax: No acute osseous abnormality. Life support devices: NG tube is in the stomach. There is ET tube in the mid trachea.. IMPRESSION: Heart size is normal. Lungs are expanded. There are no infiltrates, effusions or pneumothoraces.. NG tube is in the stomach. There is ET tube in the mid trachea..
[2017-11-04] MEDS: LOVENOX SUB-Q SCH (09:43)
[2017-11-04] MEDS: PEPCID IV SCH ×2 (09:43→22:50)
[2017-11-04] MEDS: LEVAQUIN 750MG/150ML 750 MG/150 ML BAG IV SCH (09:43)
--- NOTE | 2017-11-04 11:22 | Progress Note ---
Assessment and Plan Assessment and plan: Patient is a 62-year-old -[place] female with history of hypertension and COPD, who was brought to the ED via EMS on account of 3 weeks history of worsening shortness of breath. Of note, history was obtained from the because the patient is intubated. The stated that her shortness of breath became worse last night. At some point, she went to the bathroom and subsequently, he found her on the floor passed out and unresponsive. He then called 911. No reported preceding history of fever, cough, headaches, chest pain, nausea or vomiting. Acute respiratory failure with hypercapnia -Status post intubation -Will monitor with ABG level -Rule out pulmonary embolism Acute encephalopathy, probably secondary to carbon dioxide narcosis -Head CT scan is neg except for what noted old lacunar infarct on the right periventricular white matter -Will monitor clinically Acute COPD exacerbation -Patient will be placed on IV steroid and IV antibiotic SIRS/possible sepsis, exact source of infection unknown -Will place patient on IV antibiotic with levaquin -Follow up lactic acid level, sputum, urine and blood culture results -Chest x-ray is negative for acute infection on initial exam appears to highly suspicious of aspiration. Hyperglycemia -Will check hemoglobin A1c level Elevated hemoglobin/hematocrit, likely secondary to hemoconcentration -Will hydrate patient and monitor her H&H Thrombocytopenia * Monitor closely. Leukocytosis * Worse likely secondary to dementia normalization of steroids Elevated d-dimer * Rule out pulmonary embolism. This could also be secondary to overall medical condition NSTEMI type II -No mention of wall motion abnormality EF is 50-55% on echocardiogram. And obtain cardiology consultation. Prophylaxis -DVT prophylaxis with Lovenox and GI prophylaxis with famotidine The high probability of a clinically significant, sudden or life threatening deterioration of the [] system(s) required my full and direct attention, intervention and personal management. The aggregate critical care time was [] minutes. This time is in addition to time spent performing reported procedures but includes the following: [] Data Review and interpretation [] Patient assessment and monitoring of vital signs [] Documentation [] Medication orders and management History Interval history: Patient is seen today for: Acute respiratory failure . Seen and examined at bedside; 24hour events reviewed; nursing staff ; remains on full ventilatory support. No adverse overnight events reported to me; Denies any chest pain, nausea, vomiting, diarrhea. Awakens to verbal stimuli No fever noted blood pressure controlled Hospitalist Physical - Physical exam Narrative exam: VITAL SIGNS: Reviewed. GENERAL: The patient appeared on full ventilatory support. Vital signs as documented. HEAD: No signs of head trauma. EYES: Pupils are equal. EARS: Unable to assess MOUTH: ET tube in place NECK: No adenopathy, no JVD. CHEST: Chest with transmitted breath sounds breath sounds bilaterally. No wheezes, rales, or rhonchi. CARDIAC: Regular rate and rhythm. S1 and S2, without murmurs, gallops, or rubs. VASCULAR: No Edema. Peripheral pulses normal and equal in all extremities. ABDOMEN: Soft, No sign of distention. No rebound or guarding, and no masses palpated. Bowel Sounds normal. MUSCULOSKELETAL: Range of motion unable to assess Extremities without clubbing, cyanosis or edema. NEUROLOGIC EXAM: Sedated PSYCHIATRIC: Unable to assess SKIN: No rash or lesions. - Constitutional Vitals: Temp Pulse Resp BP Pulse Ox 98.2 F 88 19 118/73 98 11/04/17 08:00 11/04/17 11:00 11/04/17 11:00 11/04/17 11:00 11/04/17 11:15 General appearance: Present: no acute distress, other (patient is intubated and sedated) Results - Labs CBC & Chem 7: 11/04/17 04:09 11/04/17 04:09 Labs: Laboratory Last Values WBC 26.2 K/mm3 (4.5-11.0) H 11/04/17 04:09 RBC 3.86 M/mm3 (3.65-5.03) 11/04/17 04:09 Hgb 12.6 gm/dl (10.1-14.3) 11/04/17 04:09 Hct 36.7 % (30.3-42.9) D 11/04/17 04:09 MCV 95 fl (79-97) 11/04/17 04:09 MCH 33 pg (28-32) H 11/04/17 04:09 MCHC 34 % (30-34) 11/04/17 04:09 RDW 13.4 % (13.2-15.2) 11/04/17 04:09 Plt Count 78 K/mm3 (140-440) L 11/04/17 04:09 Add Manual Diff Complete 11/03/17 02:17 Total Counted 100 05/05/18 02:17 Seg Neuts % (Manual) 61.0 % (40.0-70.0) 11/03/17 02:17 Band Neutrophils % 6.0 % 11/03/17 02:17 Lymphocytes % (Manual) 29.0 % (13.4-35.0) 11/03/17 02:17 Reactive Lymphs % (Man) 0 % 11/03/17 02:17 Monocytes % (Manual) 1.0 % (0.0-7.3) 11/03/17 02:17 Eosinophils % (Manual) 1.0 % (0.0-4.3) 11/03/17 02:17 Basophils % (Manual) 2.0 % (0.0-1.8) H 11/03/17 02:17 Metamyelocytes % 0 % 11/03/17 02:17 Myelocytes % 0 % 11/03/17 02:17 Promyelocytes % 0 % 11/03/17 02:17 Blast Cells % 0 % 11/03/17 02:17 Nucleated RBC % Not Reportable 11/03/17 02:17 Seg Neutrophils # Man 7.9 K/mm3 (1.8-7.7) H 11/03/17 02:17 Band Neutrophils # 0.8 K/mm3 11/03/17 02:17 Lymphocytes # (Manual) 3.7 K/mm3 (1.2-5.4) 11/03/17 02:17 Abs React Lymphs (Man) 0.0 K/mm3 11/03/17 02:17 Monocytes # (Manual) 0.1 K/mm3 (0.0-0.8) 11/03/17 02:17 Eosinophils # (Manual) 0.1 K/mm3 (0.0-0.4) 11/03/17 02:17 Basophils # (Manual) 0.3 K/mm3 (0.0-0.1) H 11/03/17 02:17 Metamyelocytes # 0.0 K/mm3 11/03/17 02:17 Myelocytes # 0.0 K/mm3 11/03/17 02:17 Promyelocytes # 0.0 K/mm3 11/03/17 02:17 Blast Cells # 0.0 K/mm3 11/03/17 02:17 WBC Morphology Not Reportable 11/03/17 02:17 Hypersegmented Neuts Not Reportable 11/03/17 02:17 Hyposegmented Neuts Not Reportable 11/03/17 02:17 Hypogranular Neuts Not Reportable 11/03/17 02:17 Smudge Cells Not Reportable 11/03/17 02:17 Toxic Granulation Not Reportable 11/03/17 02:17 Toxic Vacuolation Not Reportable 11/03/17 02:17 Dohle Bodies Not Reportable 11/03/17 02:17 Pelger-Huet Anomaly Not Reportable 11/03/17 02:17 Jose Rods Not Reportable 11/03/17 02:17 Platelet Estimate Consistent w auto 11/03/17 02:17 Clumped Platelets Not Reportable 11/03/17 02:17 Plt Clumps, EDTA Not Reportable 11/03/17 02:17 Large Platelets Few 11/03/17 02:17 Giant Platelets Not Reportable 11/03/17 02:17 Platelet Satelliting Not Reportable 11/03/17 02:17 Plt Morphology Comment Not Reportable 11/03/17 02:17 RBC Morphology Normal 11/03/17 02:17 Dimorphic RBCs Not Reportable 11/03/17 02:17 Polychromasia Not Reportable 11/03/17 02:17 Hypochromasia Not Reportable 11/03/17 02:17 Poikilocytosis Not Reportable 11/03/17 02:17 Anisocytosis Not Reportable 11/03/17 02:17 Microcytosis Not Reportable 11/03/17 02:17 Macrocytosis Not Reportable 11/03/17 02:17 Spherocytes Not Reportable 11/03/17 02:17 Pappenheimer Bodies Not Reportable 11/03/17 02:17 Sickle Cells Not Reportable 11/03/17 02:17 Target Cells Not Reportable 11/03/17 02:17 Tear Drop Cells Not Reportable 11/03/17 02:17 Ovalocytes Not Reportable 11/03/17 02:17 Helmet Cells Not Reportable 11/03/17 02:17 Francois-Buckhannon Bodies Not Reportable 11/03/17 02:17 [place] Rings Not Reportable 11/03/17 02:17 [place]on Cells Not Reportable 11/03/17 02:17 Bite Cells Not Reportable 11/03/17 02:17 Crenated Cell Not Reportable 11/03/17 02:17 Elliptocytes Not Reportable 11/03/17 02:17 Acanthocytes (Spur) Not Reportable 11/03/17 02:17 Rouleaux Not Reportable 11/03/17 02:17 Hemoglobin C Crystals Not Reportable 11/03/17 02:17 Schistocytes Not Reportable 11/03/17 02:17 Malaria parasites Not Reportable 11/03/17 02:17 Dennis Bodies Not Reportable 11/03/17 02:17 Hem Pathologist Commnt No 11/03/17 02:17 PT 13.9 Sec. (12.2-14.9) 11/03/17 02:57 INR 1.02 (0.87-1.13) 11/03/17 02:57 APTT 27.4 Sec. (24.2-36.6) 11/03/17 02:57 D-Dimer 2299.36 ng/mlDDU (0-234) H 11/03/17 20:50 POC ABG pH 7.411 (7.35-7.45) 11/04/17 05:36 POC ABG pCO2 36.9 (35-45) 11/04/17 05:36 POC ABG pO2 70 (80-105) L 11/04/17 05:36 POC ABG HCO3 23.4 11/04/17 05:36 POC ABG Total CO2 25 11/04/17 05:36 POC ABG O2 Sat 94 11/04/17 05:36 POC ABG Base Excess -1 11/04/17 05:36 FiO2 40 % 11/04/17 05:36 Sodium 142 mmol/L (137-145) 11/04/17 04:09 Potassium 3.2 mmol/L (3.6-5.0) L D 11/04/17 04:09 Chloride 105.0 mmol/L (98-107) 11/04/17 04:09 Carbon Dioxide 23 mmol/L (22-30) 11/04/17 04:09 Anion Gap 17 mmol/L 11/04/17 04:09 BUN 10 mg/dL (7-17) 11/04/17 04:09 Creatinine 0.4 mg/dL (0.7-1.2) L 11/04/17 04:09 Estimated GFR > 60 ml/min 11/04/17 04:09 BUN/Creatinine Ratio 25 % 11/04/17 04:09 Glucose 119 mg/dL (65-100) H 11/04/17 04:09 Hemoglobin A1c 5.2 % (4-6) 11/03/17 06:56 Lactic Acid 2.20 mmol/L (0.7-2.0) H* 11/03/17 11:12 Calcium 7.9 mg/dL (8.4-10.2) L 11/04/17 04:09 Phosphorus 2.40 mg/dL (2.5-4.5) L 11/03/17 20:40 Magnesium 1.90 mg/dL (1.7-2.3) 11/03/17 20:40 Total Bilirubin 0.40 mg/dL (0.1-1.2) 11/03/17 02:17 AST 52 units/L (5-40) H 11/03/17 02:17 ALT 43 units/L (7-56) 11/03/17 02:17 Alkaline Phosphatase 105 units/L (35-129) 11/03/17 02:17 Ammonia 73.0 umol/L (25-60) H 11/04/17 04:09 Total Creatine Kinase 1456 units/L (30-135) H 11/03/17 12:10 CK-MB (CK-2) 10.7 ng/mL (0.0-4.0) H 11/03/17 12:10 CK-MB (CK-2) Rel Index 0.7 (0-4) 11/03/17 12:10 Troponin T 0.024 ng/mL (0.00-0.029) 11/03/17 12:10 C-Reactive Protein 1.40 mg/dL (0.00-1.30) H 11/03/17 20:40 NT-Pro-B Natriuret Pep 40.60 pg/mL (0-900) 11/03/17 02:17 Total Protein 6.8 g/dL (6.3-8.2) 11/03/17 02:17 Albumin 4.6 g/dL (3.9-5) 11/03/17 02:17 Albumin/Globulin Ratio 2.1 % 11/03/17 02:17 Triglycerides 42 mg/dL (2-149) 11/03/17 06:56 Cholesterol 117 mg/dL (50-199) 11/03/17 06:56 LDL Cholesterol Direct 45 mg/dL (50-130) L 11/03/17 06:56 HDL Cholesterol 76 mg/dL (40-59) H 11/03/17 06:56 Cholesterol/HDL Ratio 1.53 % 11/03/17 06:56 Urine Color Yellow (Yellow) 11/03/17 Unknown Urine Turbidity Clear (Clear) 11/03/17 Unknown Urine pH 8.0 (5.0-7.0) H 11/03/17 Unknown Ur Specific [place] 1.013 (1.003-1.030) 11/03/17 Unknown Urine Protein 100 mg/dl mg/dL (Negative) 11/03/17 Unknown Urine Glucose (UA) Neg mg/dL (Negative) 11/03/17 Unknown Urine Ketones Neg mg/dL (Negative) 11/03/17 Unknown Urine Blood Sm (Negative) 11/03/17 Unknown Urine Nitrite Neg (Negative) 11/03/17 Unknown Urine Bilirubin Neg (Negative) 11/03/17 Unknown Urine Urobilinogen < 2.0 mg/dL (<2.0) 11/03/17 Unknown Ur Leukocyte Esterase Neg (Negative) 11/03/17 Unknown Urine WBC (Auto) 7.0 /HPF (0.0-6.0) H 11/03/17 Unknown Urine RBC (Auto) 19.0 /HPF (0.0-6.0) 11/03/17 Unknown U Epithel Cells (Auto) 2.0 /HPF (0-13.0) 11/03/17 Unknown Urine Bacteria (Auto) 1+ /HPF (Negative) 11/03/17 Unknown Amorphous Crystals 1+ 11/03/17 Unknown Urine Mucus Few /HPF 11/03/17 Unknown Hepatitis A IgM Ab Non-reactive (NonReactive) 11/03/17 20:50 Hep Bs Antigen Non-reactive (Negative) 11/03/17 20:50 Hep B Core IgM Ab Non-reactive (NonReactive) 11/03/17 20:50 Hepatitis C Antibody Non-reactive (NonReactive) 11/03/17 20:50 Blood Type AB POSITIVE 11/03/17 11:12 Antibody Screen Negative 11/03/17 11:12
[2017-11-04] MEDS: KCL 10MEQ/100ML 10 MEQ/100 ML BAG IV SCH ×2 (11:47→12:53)
[2017-11-04] MEDS: SODIUM CHLORIDE FLUSH SYRINGE 10 ML IV SCH ×2 (11:48→23:07)
[2017-11-04] MEDS: DIPRIVAN 10 MG/ML 1,000 MG/100 ML BOTTLE IV SCH (12:31)
--- NOTE | 2017-11-04 16:57 | Cat Scan Report ---
FINAL REPORT PROCEDURE: CT ANGIO CHEST TECHNIQUE: Computerized tomographic angiography of the chest was performed during the IV injection of iodinated nonionic contrast including image processing. The image data was postprocessed using 2-dimensional multiplanar reformatted (MPR) and 3-dimensional (MIP and/or volume rendered) techniques. HISTORY: Evaluate pulmonary embolus COMPARISON: No prior studies are available for comparison. FINDINGS: Pulmonary outflow tract, right and left main pulmonary arteries and their proximal branches: Clear, no filling defects seen to suggest pulmonary embolus. Pericardium: No evidence of pericardial effusion. Thoracic aorta: Atherosclerotic changes are present, no evidence of aneurysmal dilatation or dissection. Coronary arteries: Are unremarkable. Mediastinum and hilar regions: Nonspecific subcentimeter lymph nodes are visualized. No pathologically enlarged lymph nodes or masses are identified. Lung English: Moderate diffuse emphysematous changes are present bilaterally. Small amount of linear atelectasis or scarring seen in the lingula and right middle lobe. No acute infiltrates are suspected. Upper abdomen: Several gallstones are visualized in the gallbladder. The gallbladder is only partially visualized and otherwise unremarkable. NG tube is seen directed into the stomach. Other: Endotracheal tube in place. The tip lies 3.4 centimeter above the nadege. No acute bony abnormalities are seen. IMPRESSION: No evidence of pulmonary embolus. Moderate emphysematous changes are present as well as minimal atelectasis or scarring as described. Cholelithiasis. Endotracheal tube and NG tube in place as described.
--- NOTE | 2017-11-04 17:03 | Progress Note ---
Assessment and Plan Acute hypercapnic respiratory failure, on mechanical ventilatory support. Acute exacerbation of chronic obstructive pulmonary disease. Acute encephalopathy with a normal CT of the brain. Tobacco use disorders, now in remission. Leukocytosis. Thrombocytopenia. Hepatic encephalopathy as evidenced by the hyperammonemia. Sepsis syndrome with mild lactic acidosis. Element of rhabdomyolysis with elevated serum creatinine and a mild metabolic acidosis. Possible alcohol abuse. - continue aspiration precautions and address VAP bundle daily - continue daily SAT's - continue bronchodilators with pulmonary hygiene per RT - prn analgesia - continue empiric AB's - follow CTA report re: VTE - begin enteral nutrition - continue lactulose and follow ammonia level - continue other care per attending / other consultants ... re-evaluate in am and prn .... 35' CCT Subjective Date of service: 11/04/17 Principal diagnosis: Acute Hypoxemic Respiratory Failure; AE COPD Interval history: Patient is seen today for: Acute Hypoxemic Respiratory Failure; AE COPD Seen and examined at bedside; 24hour events reviewed; nursing and respiratory care staff consulted; no adverse overnight events reported to me; resting peacefully in bed; nods head yes to pain but denies chest pains; No N/V/F/C; no new issues otherwise Objective Vital Signs - 12hr 11/04/17 11/04/17 11/04/17 05:30 06:00 06:30 Temperature Pulse Rate 94 H 119 H 94 H Respiratory 20 22 20 Rate Blood Pressure 114/65 114/65 158/69 O2 Sat by Pulse 97 87 99 Oximetry 11/04/17 11/04/17 11/04/17 07:00 07:30 08:00 Temperature 98.2 F Pulse Rate 90 86 83 Respiratory 20 20 20 Rate Blood Pressure 108/81 108/81 119/82 O2 Sat by Pulse 98 98 98 Oximetry 11/04/17 11/04/17 11/04/17 08:18 08:30 09:00 Temperature Pulse Rate 80 78 77 Respiratory 20 15 Rate Blood Pressure 119/82 108/81 122/71 O2 Sat by Pulse 98 99 98 Oximetry 11/04/17 11/04/17 11/04/17 09:30 10:00 10:30 Temperature Pulse Rate 79 77 89 Respiratory 20 20 19 Rate Blood Pressure 122/71 119/74 119/74 O2 Sat by Pulse 99 100 100 Oximetry 11/04/17 11/04/17 11/04/17 11:00 11:15 11:30 Temperature Pulse Rate 88 76 Respiratory 19 20 Rate Blood Pressure 118/73 118/73 O2 Sat by Pulse 98 98 98 Oximetry 11/04/17 11/04/17 11/04/17 12:00 12:03 12:30 Temperature 97.4 F L Pulse Rate 109 H 103 H 85 Respiratory 30 H 20 Rate Blood Pressure 118/73 139/79 O2 Sat by Pulse 100 100 99 Oximetry 11/04/17 11/04/17 11/04/17 13:00 13:30 14:00 Temperature Pulse Rate 79 91 H 70 Respiratory 20 19 20 Rate Blood Pressure 123/74 123/74 122/71 O2 Sat by Pulse 98 99 99 Oximetry 11/04/17 16:54 Temperature Pulse Rate 98 H Respiratory Rate Blood Pressure O2 Sat by Pulse 100 Oximetry Constitutional: no acute distress, alert Eyes: non-icteric ENT: oropharynx moist, other (ETT in place) Neck: supple, no lymphadenopathy, no JVD, other (no thyromegaly) Effort: mildly labored Ascultation: Bilateral: diminished breath sounds, rhonchi Percussion: Bilateral: not dull Cardiovascular: regular rate and rhythm, other (no R/M) Gastrointestinal: normoactive bowel sounds, soft, non-tender, non-distended, other (no palpable HSM) Integumentary: normal Extremities: no cyanosis, no edema, pulses normal, no ischemia or petechiae Neurologic: normal mental status, non-focal exam, pupils equal and round, motor strength normal and Psychiatric: anxious CBC and BMP: 11/04/17 04:09 11/04/17 04:09 ABG, PT/INR, D-dimer: ABG POC ABG pH 7.411 (7.35-7.45) 11/04/17 05:36 POC ABG pCO2 36.9 (35-45) 11/04/17 05:36 POC ABG pO2 70 (80-105) L 11/04/17 05:36 POC ABG HCO3 23.4 11/04/17 05:36 POC ABG Total CO2 25 11/04/17 05:36 POC ABG O2 Sat 94 11/04/17 05:36 PT/INR, D-dimer PT 13.9 Sec. (12.2-14.9) 11/03/17 02:57 INR 1.02 (0.87-1.13) 11/03/17 02:57 D-Dimer 2299.36 ng/mlDDU (0-234) H 11/03/17 20:50 Abnormal lab findings: Abnormal Labs 11/03/17 11/03/17 11/03/17 02:17 02:17 02:17 WBC 12.9 H Hgb 14.9 H Hct 44.5 H MCH 33 H Plt Count 119 L Basophils % (Manual) 2.0 H Seg Neutrophils # Man 7.9 H Basophils # (Manual) 0.3 H D-Dimer POC ABG pH POC ABG pCO2 POC ABG pO2 Potassium Chloride 92.5 L Carbon Dioxide 21 L Creatinine Glucose 229 H Lactic Acid Calcium Phosphorus AST 52 H Ammonia 145.0 H Total Creatine Kinase 236 H CK-MB (CK-2) 5.1 H Troponin T C-Reactive Protein LDL Cholesterol Direct HDL Cholesterol Urine pH Urine WBC (Auto) 11/03/17 11/03/17 11/03/17 03:14 06:56 06:56 WBC Hgb Hct MCH Plt Count Basophils % (Manual) Seg Neutrophils # Man Basophils # (Manual) D-Dimer POC ABG pH 7.274 L POC ABG pCO2 66.0 H POC ABG pO2 552 H Potassium Chloride Carbon Dioxide Creatinine Glucose Lactic Acid 2.30 H* Calcium Phosphorus AST Ammonia Total Creatine Kinase 1369 H CK-MB (CK-2) 10.6 H Troponin T C-Reactive Protein LDL Cholesterol Direct HDL Cholesterol Urine pH Urine WBC (Auto) 11/03/17 11/03/17 11/03/17 06:56 11:12 12:10 WBC Hgb Hct MCH Plt Count Basophils % (Manual) Seg Neutrophils # Man Basophils # (Manual) D-Dimer POC ABG pH POC ABG pCO2 POC ABG pO2 Potassium Chloride Carbon Dioxide Creatinine Glucose Lactic Acid 2.20 H* Calcium Phosphorus AST Ammonia Total Creatine Kinase 1456 H CK-MB (CK-2) 10.7 H Troponin T 0.081 H D C-Reactive Protein LDL Cholesterol Direct 45 L HDL Cholesterol 76 H Urine pH Urine WBC (Auto) 11/03/17 11/03/17 11/03/17 20:40 20:50 Unknown WBC Hgb Hct MCH Plt Count Basophils % (Manual) Seg Neutrophils # Man Basophils # (Manual) D-Dimer 2299.36 H POC ABG pH POC ABG pCO2 POC ABG pO2 Potassium Chloride Carbon Dioxide Creatinine Glucose Lactic Acid Calcium Phosphorus 2.40 L AST Ammonia Total Creatine Kinase CK-MB (CK-2) Troponin T C-Reactive Protein 1.40 H LDL Cholesterol Direct HDL Cholesterol Urine pH 8.0 H Urine WBC (Auto) 7.0 H 11/04/17 11/04/17 11/04/17 04:09 04:09 04:09 WBC 26.2 H Hgb Hct MCH 33 H Plt Count 78 L Basophils % (Manual) Seg Neutrophils # Man Basophils # (Manual) D-Dimer POC ABG pH POC ABG pCO2 POC ABG pO2 Potassium 3.2 L D Chloride Carbon Dioxide Creatinine 0.4 L Glucose 119 H Lactic Acid Calcium 7.9 L Phosphorus AST Ammonia 73.0 H Total Creatine Kinase CK-MB (CK-2) Troponin T C-Reactive Protein LDL Cholesterol Direct HDL Cholesterol Urine pH Urine WBC (Auto) 11/04/17 05:36 WBC Hgb Hct MCH Plt Count Basophils % (Manual) Seg Neutrophils # Man Basophils # (Manual) D-Dimer POC ABG pH POC ABG pCO2 POC ABG pO2 70 L Potassium Chloride Carbon Dioxide Creatinine Glucose Lactic Acid Calcium Phosphorus AST Ammonia Total Creatine Kinase CK-MB (CK-2) Troponin T C-Reactive Protein LDL Cholesterol Direct HDL Cholesterol Urine pH Urine WBC (Auto) Chest x-ray: image reviewed (no focal infiltrate) Allied health notes reviewed: nursing
[2017-11-04] MEDS: fentaNYL DRIP Premix 2,000 MCG/100 ML BAG IV SCH (17:27)
[2017-11-04] MEDS ORDERED: SODIUM BICARBONATE FEEDTUBE PRN (17:58)
[2017-11-04] MEDS ORDERED: PANCREAZE DR 10,500 UNIT FEEDTUBE PRN (17:58)
[2017-11-05] MEDS: DIPRIVAN 10 MG/ML 1,000 MG/100 ML BOTTLE IV SCH ×2 (03:38→22:26)
[2017-11-05] MEDS: fentaNYL DRIP Premix 2,000 MCG/100 ML BAG IV SCH ×2 (03:38→19:20)
--- NOTE | 2017-11-05 03:47 | XRay Report ---
FINAL REPORT PROCEDURE: XR CHEST 1V AP TECHNIQUE: Chest radiograph anteroposterior view. CPT 76571 HISTORY: follow up respiratory failure COMPARISON: 11/04/2017 FINDINGS: Heart: Normal. Mediastinum/Vessels: Normal. Lungs/Pleural space: Lungs are expanded. There are no infiltrates, effusions or pneumothoraces. Bony thorax: No acute osseous abnormality. Life support devices: The endotracheal tube is in the mid trachea. The NG tube is in the stomach.. IMPRESSION: Heart size is normal. Lungs are expanded. There are no infiltrates, effusions or pneumothoraces. The endotracheal tube is in the mid trachea. The NG tube is in the stomach..
[2017-11-05] MEDS: CEPHULAC PO SCH ×3 (05:24→19:42)
--- NOTE | 2017-11-05 07:48 | Consultation ---
PULMONARY CRITICAL CARE CONSULT NOTE REQUESTING PHYSICIAN: Dr. Nikki Montoya. REASON FOR CONSULTATION: Acute hypercapnic respiratory failure, acute exacerbation of chronic obstructive pulmonary disease. CHIEF COMPLAINT AND HISTORY OF PRESENT ILLNESS: The patient is a 62-year-old -Citizen Of [place] female with past medical history significant as mentioned above for a diagnosis of COPD, brought into the Emergency Room after 3 weeks of increasing shortness of breath. The patient was obtunded. Apparently at the time that she was brought in, he had found her after she went to the bathroom and did not come back. She was on the floor passed out, nonresponsive, 911 was called. No report of actual CPR in the Emergency Room. I believe she was intubated in the ER and evaluation was started. We are asked to see post-intubation. When I stopped by to see her, she was sedated on the mechanical ventilator. Her mother and stepfather were in the room. They mentioned she has been dealing with some pulling/allergy issues also of late. She is on bronchodilators at home and she has been using them. They say that she does have a remote 20+ pack year tobacco smoking history, but quit smoking about 3-4 years ago. She was unable to give other further history. I do not have any history of nausea, vomiting, or overt aspiration. The above is as much of the history of presentation as I have. PAST MEDICAL HISTORY: COPD, hypertension. PAST SURGICAL HISTORY: They denied. MEDICATIONS: She was on at the time I came by to see her were reviewed; pertinent medications included the following: She was on Lovenox 40 mg subcutaneous daily, Pepcid 20 mg IV b.i.d., Levaquin 750 mg IV daily, Solu-Medrol 125 mg IV q. 8 hours scheduled. She was on a Versed drip at 4 mg per hour, Zofran 4 mg IV q. 8 hours p.r.n. nausea and vomiting, vancomycin 1.25 grams IV q. 12 hours. ALLERGIES: She has allergies to PENICILLIN. DIET: Thin lady. Family denies acute weight loss or gain in the preceding few weeks to months. FAMILY AND SOCIAL HISTORY: Lives in the community. A 20+ pack year tobacco smoking history. They deny alcohol or illicit drug use or abuse. Family history is significant for asthma. REVIEW OF SYSTEMS: Unobtainable secondary to the patient's medical and mental condition. Since she has been here, no gross hematochezia or melena, no gross hematuria, no hematemesis, no hemoptysis, no bloody tracheal secretions. PHYSICAL EXAMINATION: VITAL SIGNS: At presentation in the Emergency Room revealed vital signs shows that the first temperature I have was 97.5, at presentation her pulse was 95, respiratory rate 23, blood pressure 106/76, oxygen sats 100%, inspired oxygen concentration was not recorded. GENERAL: She is an elderly looking -Citizen Of [place] female, looks her stated age, normocephalic, atraumatic, intubated on the mechanical ventilator without overt respiratory distress. HEAD, EYES, EARS, NOSE AND THROAT: She is anicteric. No conjunctival erythema. Endotracheal tube is taped at the lips around 23 cm. No gross jugular venous distention, no thyromegaly, no palpable lymph nodes in the supraclavicular or submandibular lymph node chains. LUNGS: Auscultation of both lung patrick, lungs are clear with diminished bilateral breath sounds. HEART: Heart sounds 1 and 2 are heard, regular rate and rhythm. At the time of my evaluation, no rubs or murmurs. ABDOMEN: Soft, flat. Bowel sounds are positive, nontender. EXTREMITIES: Without overt digital clubbing, no cyanosis, no pedal edema. Dorsalis pedis pulses are palpable bilaterally and strong. NEUROLOGIC: Pupils are equal and round, about 3 mm, reactive to light. Extraocular muscle movements could not be assessed. She does have spontaneous movements to all 4 extremities. SKIN: Normal turgor. No cellulitis, no rash. LABORATORY DATA: From my review, white cell count 12,900, hemoglobin 14.9, hematocrit 44.5, platelet count 119. INR 1.02. Arterial blood gas at presentation showed a pH of 7.27, pCO2 of 66, pO2 of 552 that was on 100% FiO2. Serum sodium was 137, potassium 4.7, chloride 93, bicarbonate 21, BUN 14, creatinine 0.8, glucose was 229. Lactic acid level was 2.3, AST 52. Ammonia was elevated at 145. CPK was 236, it is up to 1456 now. Troponins peaked at 0.081. BNP within normal limits. LDL cholesterol is 45. Urinalysis negative for leukocyte esterase and nitrites. [place]bon otherwise. Blood cultures no growth to date. Tracheal aspirate no growth to date. IMAGING DATA: Chest x-ray has been ordered. I have reviewed the chest x-ray. I have also reviewed the radiologist's interpretation. I do agree essentially ET tube is in good position, no acute process, slight hyperinflation. It is a poor film of a lordotic film with a distended gastric bubble. A CT of the head and brain was also done. I have reviewed the radiologist's interpretation. There is no acute infarct and old lacunar infarct in the right periventricular white matter. An echocardiogram has been done also, the result of that is pending. ASSESSMENT: 1. Acute hypercapnic respiratory failure, on mechanical ventilatory support. 2. Acute exacerbation of chronic obstructive pulmonary disease. 3. Acute encephalopathy with a normal CT of the brain. 4. Tobacco use disorders, now in remission. 5. Leukocytosis. 6. Thrombocytopenia. 7. Hepatic encephalopathy as evidenced by the hyperammonemia. 8. Sepsis syndrome with mild lactic acidosis. 9. Element of rhabdomyolysis with elevated serum creatinine and a mild metabolic acidosis. 10. Possible alcohol abuse. PLAN: We will keep her on mechanical ventilator support. She is currently on assist control, tidal volumes of 500 set rate of 20, PEEP of 5. I will go ahead and begin sedation assessment trial, stop all sedation with Versed at this point. I will switch over to fentanyl with p.r.n. and propofol for sedation. We will send a CRP level and continue to trend this lactic acid level. She will be continued on IV fluids. I will start her on some lactulose for the hyperammonemia. We will keep a close eye on her BUN and creatinine in light of the rhabdomyolysis. Aspiration precautions will be maintained. Ventilator-associated pneumonia bundle will be addressed daily. I will put her on bronchodilators q. 6 hours. We will begin a systemic steroid taper. We will continue empiric antibiotic therapy. I will also get a CRP level to help with de-escalation. She is appropriately on gastrointestinal and deep venous thrombosis prophylaxis. Tobacco cessation consideration will be encouraged once she is extubated. Flu and pneumonia vaccination will be addressed per protocol. I will do a limited venous thromboembolic disorder workup as she was found down on the floor and this may well be as a result of a PE. We will get a stat D-dimer level and depending on the D-dimer level, I will decide on further intervention taking her pretest clinical probability into consideration. Thank you very much for the consult. We will follow along and make further recommendations as picture progresses/becomes clearer. She is critically ill on life-sustaining interventions including mechanical ventilatory support. At this time, I spent about 35-40 minutes of critical care time without overlap and excluding any procedural time that may be necessary. JOB# [id number] GOMEZ/LEONA MOCK
--- NOTE | 2017-11-05 09:09 | Progress Note ---
Assessment and Plan Patient admitted with collapse and respiratory failure,hx. of chronic lung disease,no previous cardiac hx.VS stable.Echocardiogram was unremarkable.Continue present supportive rx.Stress MPI at a later date. - Patient Problems (1) Altered mental status Current Visit: Yes Status: Acute (2) Respiratory failure Current Visit: Yes Status: Acute (3) HTN (hypertension) Current Visit: No Status: Chronic Subjective Date of service: 11/04/17 Principal diagnosis: Acute Hypoxemic Respiratory Failure; AE COPD Interval history: Patient is intubated ,on v entilator.VS stable. Objective Vital Signs Temp Pulse Pulse Resp BP Pulse Ox 11/05/17 08:03 68 110/68 99 11/05/17 08:00 66 66 19 123/75 100 11/05/17 07:45 63 20 115/65 100 11/05/17 07:31 62 20 115/65 100 11/05/17 07:15 64 20 115/65 99 11/05/17 07:00 65 20 115/65 100 11/05/17 06:45 64 20 107/64 99 11/05/17 06:31 66 20 107/64 98 11/05/17 06:15 67 19 107/64 99 11/05/17 06:00 64 20 107/64 100 11/05/17 05:45 68 20 110/68 99 11/05/17 05:31 78 15 110/68 100 11/05/17 05:15 64 20 110/68 100 11/05/17 05:05 65 113/68 100 11/05/17 05:00 65 20 113/68 100 11/05/17 04:46 67 20 110/68 100 11/05/17 04:30 67 16 110/68 100 11/05/17 04:16 67 20 110/68 100 11/05/17 04:00 99.0 F 69 20 110/68 100 11/05/17 03:46 67 20 96/54 100 11/05/17 03:30 73 20 96/54 100 11/05/17 03:16 72 20 96/54 100 11/05/17 03:00 82 20 96/54 100 11/05/17 02:46 90 20 115/79 100 11/05/17 02:30 96 H 13 115/79 99 11/05/17 02:16 71 20 115/79 100 05/07/18 02:00 78 18 115/79 100 05/07/18 01:46 68 20 120/78 100 05/07/18 01:30 72 20 120/78 100 05/07/18 01:16 66 20 120/78 100 05/07/18 01:00 71 20 120/78 100 05/07/18 00:46 71 20 110/76 100 05/07/18 00:30 74 20 110/76 100 05/07/18 00:16 74 18 110/76 100 05/07/18 00:00 99.1 F 77 20 110/76 99 05/06/18 23:49 87 113/80 100 05/06/18 23:46 85 20 113/80 100 05/06/18 23:30 88 9 L 113/80 99 05/06/18 23:16 98 H 13 113/80 100 05/0618 23:00 111 H 14 120/81 100 05/06/18 22:46 89 12 120/81 90 05/06/18 22:30 93 H 20 120/81 98 05/06/18 22:16 93 H 8 L 120/81 98 05/06/18 22:00 88 20 120/81 98 05/06/18 21:46 86 11 L 129/71 92 05/06/18 21:44 87 21 129/71 91 05/06/18 21:30 74 20 129/71 98 05/06/18 21:16 75 20 129/71 98 05/06/18 21:00 73 20 129/71 98 05/06/18 20:46 75 20 120/58 98 05/06/18 20:30 91 H 20 120/58 100 05/06/18 20:23 95 H 120/58 98 05/06/18 20:16 77 20 120/58 99 05/06/18 20:00 98.9 F 76 20 120/58 99 05/06/18 19:46 76 20 111/54 100 05/06/18 19:30 78 20 111/54 99 05/06/18 19:16 85 18 111/54 100 05/06/18 19:00 80 20 111/54 99 05/06/18 18:30 75 20 110/52 98 05/06/18 18:00 78 20 118/56 96 05/06/18 17:30 90 18 110/52 95 05/06/18 17:00 101 H 18 110/52 98 11/04/17 16:54 98 H 100 11/04/17 16:30 112 H 20 133/72 100 11/04/17 16:00 98.7 F 0506 15:30 73 20 113/61 100 11/04/17 15:00 71 20 113/61 99 11/04/17 14:30 74 20 122/71 99 11/04/17 14:00 70 20 122/71 99 11/04/17 13:30 91 H 19 123/74 99 11/04/17 13:00 79 20 123/74 98 11/04/17 12:30 85 20 139/79 99 11/04/17 12:03 103 H 100 11/04/17 12:00 97.4 F L 109 H 30 H 118/73 100 11/04/17 11:30 76 20 118/73 98 11/04/17 11:15 98 11/04/17 11:00 88 19 118/73 98 11/04/17 10:30 89 19 119/74 100 11/04/17 10:00 77 20 119/74 100 11/04/17 09:30 79 20 122/71 99 - Physical Examination Narrative exam: patient is intubated,on ventilator. General: No Apparent Distress Neck: Positive: neck supple Cardiac: Positive: Reg Rate and Rhythm Lungs: Positive: clear to auscultation Abdomen: Positive: Soft Skin: Negative: Rash Extremities: Absent: edema - EKG Sinus rhythms and dysrhythmias: sinus rhythm
[2017-11-05] MEDS: NACL 0.9% 1000 ML 1,000 ML IV SCH (09:21)
[2017-11-05] MEDS: LEVAQUIN 750MG/150ML 750 MG/150 ML BAG IV SCH (09:21)
[2017-11-05] MEDS: PEPCID IV SCH (09:22)
[2017-11-05] MEDS: LOVENOX SUB-Q SCH (09:22)
--- NOTE | 2017-11-05 10:36 | Progress Note ---
Assessment and Plan Assessment and plan: Patient is a 62-year-old -[place] female with history of hypertension and COPD, who was brought to the ED via EMS on account of 3 weeks history of worsening shortness of breath. Of note, history was obtained from the because the patient is intubated. The stated that her shortness of breath became worse last night. At some point, she went to the bathroom and subsequently, he found her on the floor passed out and unresponsive. He then called 911. No reported preceding history of fever, cough, headaches, chest pain, nausea or vomiting. Patient continues on mechanical ventilation. Imaging studies of the brain unremarkable. She is currently being treated with antibiotics for suspicious aspiration pneumonia. Cardiology was consulted echocardiogram did not reveal any wall motion abnormality ejection fraction was 50-55%. She does have a history of COPD. At this point working diagnosis of syncope on the cause. If no significant improvement patient will benefit from a neurology consult. Acute respiratory failure with hypercapnia -Status post intubation -Will monitor with ABG level -Rule out pulmonary embolism Acute encephalopathy, probably secondary to carbon dioxide narcosis -Head CT scan is neg except for what noted old lacunar infarct on the right periventricular white matter -Will monitor clinically Acute COPD exacerbation -Patient will be placed on IV steroid and IV antibiotic SIRS/possible sepsis, exact source of infection unknown -Will place patient on IV antibiotic with levaquin -Follow up lactic acid level, sputum, urine and blood culture results -Chest x-ray is negative for acute infection on initial exam appears to highly suspicious of aspiration. Hyperglycemia -Will check hemoglobin A1c level Elevated hemoglobin/hematocrit, likely secondary to hemoconcentration -Will hydrate patient and monitor her H&H Thrombocytopenia * Monitor closely. Leukocytosis * Worse likely secondary to dementia normalization of steroids Elevated d-dimer * no pulmonary embolisim NSTEMI type II -No mention of wall motion abnormality EF is 50-55% on echocardiogram. And obtain cardiology consultation. Prophylaxis -DVT prophylaxis with Lovenox and GI prophylaxis with famotidine The high probability of a clinically significant, sudden or life threatening deterioration of the [pulmonary] system(s) required my full and direct attention , intervention and personal management. The aggregate critical care time was [35 ] minutes. This time is in addition to time spent performing reported procedures but includes the following: [x] Data Review and interpretation [x] Patient assessment and monitoring of vital signs [x] Documentation [x] Medication orders and management History Interval history: Patient is seen today for: Acute respiratory failure . Seen and examined at bedside; 24hour events reviewed; nursing staff ; remains on full ventilatory support. No adverse overnight events reported to me; Denies any chest pain, nausea, vomiting, diarrhea. Awakens to verbal stimuli but still agitated with attempt to wean No fever noted blood pressure controlled Hospitalist Physical - Physical exam Narrative exam: VITAL SIGNS: Reviewed. GENERAL: The patient appeared on full ventilatory support. Vital signs as documented. HEAD: No signs of head trauma. EYES: Pupils are equal. EARS: Unable to assess MOUTH: ET tube in place NECK: No adenopathy, no JVD. CHEST: Chest with transmitted breath sounds breath sounds bilaterally. No wheezes, rales, or rhonchi. CARDIAC: Regular rate and rhythm. S1 and S2, without murmurs, gallops, or rubs. VASCULAR: No Edema. Peripheral pulses normal and equal in all extremities. ABDOMEN: Soft, No sign of distention. No rebound or guarding, and no masses palpated. Bowel Sounds normal. MUSCULOSKELETAL: Range of motion unable to assess Extremities without clubbing, cyanosis or edema. NEUROLOGIC EXAM: Sedated PSYCHIATRIC: Unable to assess SKIN: No rash or lesions. - Constitutional Vitals: Temp Pulse Resp BP Pulse Ox 99.0 F 68 19 110/68 99 11/05/17 04:00 11/05/17 08:03 11/05/17 08:00 11/05/17 08:03 11/05/17 08:03 General appearance: Present: no acute distress, other (patient is intubated and sedated) Results - Labs CBC & Chem 7: 11/05/17 13:12 11/05/17 13:12 Labs: Laboratory Last Values WBC 26.2 K/mm3 (4.5-11.0) H 11/04/17 04:09 RBC 3.86 M/mm3 (3.65-5.03) 11/04/17 04:09 Hgb 12.6 gm/dl (10.1-14.3) 11/04/17 04:09 Hct 36.7 % (30.3-42.9) D 11/04/17 04:09 MCV 95 fl (79-97) 11/04/17 04:09 MCH 33 pg (28-32) H 11/04/17 04:09 MCHC 34 % (30-34) 11/04/17 04:09 RDW 13.4 % (13.2-15.2) 11/04/17 04:09 Plt Count 78 K/mm3 (140-440) L 11/04/17 04:09 Add Manual Diff Complete 11/03/17 02:17 Total Counted 100 11/03/17 02:17 Seg Neuts % (Manual) 61.0 % (40.0-70.0) 11/03/17 02:17 Band Neutrophils % 6.0 % 11/03/17 02:17 Lymphocytes % (Manual) 29.0 % (13.4-35.0) 11/03/17 02:17 Reactive Lymphs % (Man) 0 % 11/03/17 02:17 Monocytes % (Manual) 1.0 % (0.0-7.3) 11/03/17 02:17 Eosinophils % (Manual) 1.0 % (0.0-4.3) 11/03/17 02:17 Basophils % (Manual) 2.0 % (0.0-1.8) H 11/03/17 02:17 Metamyelocytes % 0 % 11/03/17 02:17 Myelocytes % 0 % 11/03/17 02:17 Promyelocytes % 0 % 11/03/17 02:17 Blast Cells % 0 % 11/03/17 02:17 Nucleated RBC % Not Reportable 11/03/17 02:17 Seg Neutrophils # Man 7.9 K/mm3 (1.8-7.7) H 11/03/17 02:17 Band Neutrophils # 0.8 K/mm3 11/03/17 02:17 Lymphocytes # (Manual) 3.7 K/mm3 (1.2-5.4) 11/03/17 02:17 Abs React Lymphs (Man) 0.0 K/mm3 11/03/17 02:17 Monocytes # (Manual) 0.1 K/mm3 (0.0-0.8) 11/03/17 02:17 Eosinophils # (Manual) 0.1 K/mm3 (0.0-0.4) 11/03/17 02:17 Basophils # (Manual) 0.3 K/mm3 (0.0-0.1) H 11/03/17 02:17 Metamyelocytes # 0.0 K/mm3 11/03/17 02:17 Myelocytes # 0.0 K/mm3 11/03/17 02:17 Promyelocytes # 0.0 K/mm3 11/03/17 02:17 Blast Cells # 0.0 K/mm3 11/03/17 02:17 WBC Morphology Not Reportable 11/03/17 02:17 Hypersegmented Neuts Not Reportable 11/03/17 02:17 Hyposegmented Neuts Not Reportable 11/03/17 02:17 Hypogranular Neuts Not Reportable 11/03/17 02:17 Smudge Cells Not Reportable 11/03/17 02:17 Toxic Granulation Not Reportable 11/03/17 02:17 Toxic Vacuolation Not Reportable 11/03/17 02:17 Dohle Bodies Not Reportable 11/03/17 02:17 Pelger-Huet Anomaly Not Reportable 11/03/17 02:17 Jose Rods Not Reportable 11/03/17 02:17 Platelet Estimate Consistent w auto 11/03/17 02:17 Clumped Platelets Not Reportable 11/03/17 02:17 Plt Clumps, EDTA Not Reportable 11/03/17 02:17 Large Platelets Few 11/03/17 02:17 Giant Platelets Not Reportable 11/03/17 02:17 Platelet Satelliting Not Reportable 11/03/17 02:17 Plt Morphology Comment Not Reportable 11/03/17 02:17 RBC Morphology Normal 11/03/17 02:17 Dimorphic RBCs Not Reportable 11/03/17 02:17 Polychromasia Not Reportable 11/03/17 02:17 Hypochromasia Not Reportable 11/03/17 02:17 Poikilocytosis Not Reportable 11/03/17 02:17 Anisocytosis Not Reportable 11/03/17 02:17 Microcytosis Not Reportable 11/03/17 02:17 Macrocytosis Not Reportable 11/03/17 02:17 Spherocytes Not Reportable 11/03/17 02:17 Pappenheimer Bodies Not Reportable 11/03/17 02:17 Sickle Cells Not Reportable 11/03/17 02:17 Target Cells Not Reportable 11/03/17 02:17 Tear Drop Cells Not Reportable 11/03/17 02:17 Ovalocytes Not Reportable 11/03/17 02:17 Helmet Cells Not Reportable 11/03/17 02:17 Francois-[place] Bodies Not Reportable 11/03/17 02:17 [place] Rings Not Reportable 11/03/17 02:17 [place] Cells Not Reportable 11/03/17 02:17 Bite Cells Not Reportable 11/03/17 02:17 Crenated Cell Not Reportable 11/03/17 02:17 Elliptocytes Not Reportable 11/03/17 02:17 Acanthocytes (Spur) Not Reportable 11/03/17 02:17 Rouleaux Not Reportable 11/03/17 02:17 Hemoglobin C Crystals Not Reportable 11/03/17 02:17 Schistocytes Not Reportable 11/03/17 02:17 Malaria parasites Not Reportable 11/03/17 02:17 Dennis Bodies Not Reportable 11/03/17 02:17 Hem Pathologist Commnt No 11/03/17 02:17 PT 13.9 Sec. (12.2-14.9) 11/03/17 02:57 INR 1.02 (0.87-1.13) 11/03/17 02:57 APTT 27.4 Sec. (24.2-36.6) 11/03/17 02:57 D-Dimer 2299.36 ng/mlDDU (0-234) H 11/03/17 20:50 POC ABG pH 7.392 (7.35-7.45) 11/05/17 05:23 POC ABG pCO2 40.9 (35-45) 11/05/17 05:23 POC ABG pO2 155 (80-105) H 11/05/17 05:23 POC ABG HCO3 24.8 11/05/17 05:23 POC ABG Total CO2 26 11/05/17 05:23 POC ABG O2 Sat 99 11/05/17 05:23 POC ABG Base Excess 0 11/05/17 05:23 FiO2 40 % 11/05/17 05:23 Sodium 142 mmol/L (137-145) 11/04/17 04:09 Potassium 3.2 mmol/L (3.6-5.0) L D 11/04/17 04:09 Chloride 105.0 mmol/L (98-107) 11/04/17 04:09 Carbon Dioxide 23 mmol/L (22-30) 11/04/17 04:09 Anion Gap 17 mmol/L 11/04/17 04:09 BUN 10 mg/dL (7-17) 11/04/17 04:09 Creatinine 0.4 mg/dL (0.7-1.2) L 11/04/17 04:09 Estimated GFR > 60 ml/min 11/04/17 04:09 BUN/Creatinine Ratio 25 % 11/04/17 04:09 Glucose 119 mg/dL (65-100) H 11/04/17 04:09 Hemoglobin A1c 5.2 % (4-6) 11/03/17 06:56 Lactic Acid 1.10 mmol/L (0.7-2.0) 11/04/17 19:19 Calcium 7.9 mg/dL (8.4-10.2) L 11/04/17 04:09 Phosphorus 2.40 mg/dL (2.5-4.5) L 11/03/17 20:40 Magnesium 1.90 mg/dL (1.7-2.3) 11/03/17 20:40 Total Bilirubin 0.40 mg/dL (0.1-1.2) 11/03/17 02:17 AST 52 units/L (5-40) H 11/03/17 02:17 ALT 43 units/L (7-56) 11/03/17 02:17 Alkaline Phosphatase 105 units/L (35-129) 11/03/17 02:17 Ammonia 73.0 umol/L (25-60) H 11/04/17 04:09 Total Creatine Kinase 1456 units/L (30-135) H 11/03/17 12:10 CK-MB (CK-2) 10.7 ng/mL (0.0-4.0) H 11/03/17 12:10 CK-MB (CK-2) Rel Index 0.7 (0-4) 11/03/17 12:10 Troponin T 0.024 ng/mL (0.00-0.029) 11/03/17 12:10 C-Reactive Protein 1.40 mg/dL (0.00-1.30) H 11/03/17 20:40 NT-Pro-B Natriuret Pep 40.60 pg/mL (0-900) 11/03/17 02:17 Total Protein 6.8 g/dL (6.3-8.2) 11/03/17 02:17 Albumin 4.6 g/dL (3.9-5) 11/03/17 02:17 Albumin/Globulin Ratio 2.1 % 11/03/17 02:17 Triglycerides 42 mg/dL (2-149) 11/03/17 06:56 Cholesterol 117 mg/dL (50-199) 11/03/17 06:56 LDL Cholesterol Direct 45 mg/dL (50-130) L 11/03/17 06:56 HDL Cholesterol 76 mg/dL (40-59) H 11/03/17 06:56 Cholesterol/HDL Ratio 1.53 % 11/03/17 06:56 Urine Color Yellow (Yellow) 11/03/17 Unknown Urine Turbidity Clear (Clear) 11/03/17 Unknown Urine pH 8.0 (5.0-7.0) H 11/03/17 Unknown Ur Specific [place] 1.013 (1.003-1.030) 11/03/17 Unknown Urine Protein 100 mg/dl mg/dL (Negative) 11/03/17 Unknown Urine Glucose (UA) Neg mg/dL (Negative) 11/03/17 Unknown Urine Ketones Neg mg/dL (Negative) 11/03/17 Unknown Urine Blood Sm (Negative) 11/03/17 Unknown Urine Nitrite Neg (Negative) 11/03/17 Unknown Urine Bilirubin Neg (Negative) 11/03/17 Unknown Urine Urobilinogen < 2.0 mg/dL (<2.0) 11/03/17 Unknown Ur Leukocyte Esterase Neg (Negative) 11/03/17 Unknown Urine WBC (Auto) 7.0 /HPF (0.0-6.0) H 11/03/17 Unknown Urine RBC (Auto) 19.0 /HPF (0.0-6.0) 11/03/17 Unknown U Epithel Cells (Auto) 2.0 /HPF (0-13.0) 11/03/17 Unknown Urine Bacteria (Auto) 1+ /HPF (Negative) 11/03/17 Unknown Amorphous Crystals 1+ 11/03/17 Unknown Urine Mucus Few /HPF 11/03/17 Unknown Hepatitis A IgM Ab Non-reactive (NonReactive) 11/03/17 20:50 Hep Bs Antigen Non-reactive (Negative) 11/03/17 20:50 Hep B Core IgM Ab Non-reactive (NonReactive) 11/03/17 20:50 Hepatitis C Antibody Non-reactive (NonReactive) 11/03/17 20:50 Blood Type AB POSITIVE 11/03/17 11:12 Antibody Screen Negative 11/03/17 11:12
--- NOTE | 2017-11-05 13:19 | Progress Note ---
Assessment and Plan Acute hypercapnic respiratory failure, on mechanical ventilatory support. Acute exacerbation of chronic obstructive pulmonary disease. Acute encephalopathy with a normal CT of the brain. Tobacco use disorders, now in remission. Leukocytosis. Thrombocytopenia. Hepatic encephalopathy as evidenced by the hyperammonemia. Sepsis syndrome with mild lactic acidosis. Element of rhabdomyolysis with elevated serum creatinine and a mild metabolic acidosis. Possible alcohol abuse. - continue aspiration precautions and address VAP bundle daily - continue daily SAT's - begin daily SBT's - continue bronchodilators with pulmonary hygiene per RT - continue systemic steroids - prn analgesia - continue empiric AB's but discontinue vancomycin - continue enteral nutrition - continue lactulose and follow ammonia level - continue other care per attending / other consultants ... re-evaluate in am and prn .... 30' CCT Subjective Date of service: 11/05/17 Principal diagnosis: Acute Hypoxemic Respiratory Failure; AE COPD Interval history: Patient is seen today for: Acute Hypoxemic Respiratory Failure; AE COPD Seen and examined at bedside; 24hour events reviewed; nursing and respiratory care staff consulted; no adverse overnight events reported to me; resting peacefully in bed; anxious; did not tolerate SBT; denies acute chest pains; no N /V/F/C; s/p CTA of chest; Afebrile Objective Vital Signs - 12hr 11/05/17 11/05/17 11/05/17 01:30 01:46 02:00 Temperature Pulse Rate 72 68 78 Pulse Rate [ From Monitor] Respiratory 20 20 18 Rate Blood Pressure 120/78 120/78 115/79 O2 Sat by Pulse 100 100 100 Oximetry 11/05/17 11/05/17 11/05/17 02:16 02:30 02:46 Temperature Pulse Rate 71 96 H 90 Pulse Rate [ From Monitor] Respiratory 20 13 20 Rate Blood Pressure 115/79 115/79 115/79 O2 Sat by Pulse 100 99 100 Oximetry 11/05/17 11/05/17 11/05/17 03:00 03:16 03:30 Temperature Pulse Rate 82 72 73 Pulse Rate [ From Monitor] Respiratory 20 20 20 Rate Blood Pressure 96/54 96/54 96/54 O2 Sat by Pulse 100 100 100 Oximetry 11/05/17 11/05/17 11/05/17 03:46 04:00 04:16 Temperature 99.0 F Pulse Rate 67 69 67 Pulse Rate [ From Monitor] Respiratory 20 20 20 Rate Blood Pressure 96/54 110/68 110/68 O2 Sat by Pulse 100 100 100 Oximetry 11/05/17 11/05/17 11/05/17 04:30 04:46 05:00 Temperature Pulse Rate 67 67 65 Pulse Rate [ From Monitor] Respiratory 16 20 20 Rate Blood Pressure 110/68 110/68 113/68 O2 Sat by Pulse 100 100 100 Oximetry 11/05/17 11/05/17 11/05/17 05:05 05:15 05:31 Temperature Pulse Rate 65 64 78 Pulse Rate [ From Monitor] Respiratory 20 15 Rate Blood Pressure 113/68 110/68 110/68 O2 Sat by Pulse 100 100 100 Oximetry 11/05/17 11/05/17 11/05/17 05:45 06:00 06:15 Temperature Pulse Rate 68 64 67 Pulse Rate [ From Monitor] Respiratory 20 20 19 Rate Blood Pressure 110/68 107/64 107/64 O2 Sat by Pulse 99 100 99 Oximetry 11/05/17 11/05/17 11/05/17 06:31 06:45 07:00 Temperature Pulse Rate 66 64 65 Pulse Rate [ From Monitor] Respiratory 20 20 20 Rate Blood Pressure 107/64 107/64 115/65 O2 Sat by Pulse 98 99 100 Oximetry 11/05/17 11/05/17 11/05/17 07:15 07:31 07:45 Temperature Pulse Rate 64 62 63 Pulse Rate [ From Monitor] Respiratory 20 20 20 Rate Blood Pressure 115/65 115/65 115/65 O2 Sat by Pulse 99 100 100 Oximetry 11/05/17 11/05/17 11/05/17 08:00 08:03 08:15 Temperature Pulse Rate 66 68 61 Pulse Rate [ 66 From Monitor] Respiratory 19 20 Rate Blood Pressure 123/75 110/68 123/75 O2 Sat by Pulse 100 99 100 Oximetry 11/05/17 11/05/17 11/05/17 08:31 08:45 09:00 Temperature Pulse Rate 62 67 64 Pulse Rate [ From Monitor] Respiratory 20 20 20 Rate Blood Pressure 123/75 123/75 112/63 O2 Sat by Pulse 100 100 100 Oximetry 11/05/17 11/05/17 11/05/17 09:15 09:30 09:45 Temperature Pulse Rate 62 65 66 Pulse Rate [ From Monitor] Respiratory 19 20 20 Rate Blood Pressure 112/63 112/63 112/63 O2 Sat by Pulse 100 100 100 Oximetry 11/05/17 11/05/17 11/05/17 10:00 10:15 11:10 Temperature Pulse Rate 65 67 67 Pulse Rate [ From Monitor] Respiratory 20 20 Rate Blood Pressure 116/66 116/66 116/66 O2 Sat by Pulse 100 99 99 Oximetry Constitutional: no acute distress, alert Eyes: non-icteric ENT: oropharynx moist, other (ETT in place) Neck: supple, no lymphadenopathy, no JVD, other (no thyromegaly) Effort: mildly labored Ascultation: Bilateral: diminished breath sounds, wheezes, rhonchi Percussion: Bilateral: not dull Cardiovascular: regular rate and rhythm, other (no R/M) Gastrointestinal: normoactive bowel sounds, soft, non-tender, non-distended, other (no palpable HSM) Integumentary: normal Extremities: no cyanosis, no edema, pulses normal, no ischemia or petechiae Neurologic: normal mental status, non-focal exam, pupils equal and round, motor strength normal and Psychiatric: anxious CBC and BMP: 11/06/17 04:19 11/06/17 04:19 ABG, PT/INR, D-dimer: ABG POC ABG pH 7.392 (7.35-7.45) 11/05/17 05:23 POC ABG pCO2 40.9 (35-45) 11/05/17 05:23 POC ABG pO2 155 (80-105) H 11/05/17 05:23 POC ABG HCO3 24.8 11/05/17 05:23 POC ABG Total CO2 26 11/05/17 05:23 POC ABG O2 Sat 99 11/05/17 05:23 PT/INR, D-dimer PT 13.9 Sec. (12.2-14.9) 11/03/17 02:57 INR 1.02 (0.87-1.13) 11/03/17 02:57 D-Dimer 2299.36 ng/mlDDU (0-234) H 11/03/17 20:50 Abnormal lab findings: Abnormal Labs 11/03/17 11/03/17 11/03/17 02:17 02:17 02:17 WBC 12.9 H Hgb 14.9 H Hct 44.5 H MCH 33 H Plt Count 119 L Basophils % (Manual) 2.0 H Seg Neutrophils # Man 7.9 H Basophils # (Manual) 0.3 H D-Dimer POC ABG pH POC ABG pCO2 POC ABG pO2 Potassium Chloride 92.5 L Carbon Dioxide 21 L Creatinine Glucose 229 H Lactic Acid Calcium Phosphorus AST 52 H Ammonia 145.0 H Total Creatine Kinase 236 H CK-MB (CK-2) 5.1 H Troponin T C-Reactive Protein LDL Cholesterol Direct HDL Cholesterol Urine pH Urine WBC (Auto) 11/03/17 11/03/17 11/03/17 03:14 06:56 06:56 WBC Hgb Hct MCH Plt Count Basophils % (Manual) Seg Neutrophils # Man Basophils # (Manual) D-Dimer POC ABG pH 7.274 L POC ABG pCO2 66.0 H POC ABG pO2 552 H Potassium Chloride Carbon Dioxide Creatinine Glucose Lactic Acid 2.30 H* Calcium Phosphorus AST Ammonia Total Creatine Kinase 1369 H CK-MB (CK-2) 10.6 H Troponin T C-Reactive Protein LDL Cholesterol Direct HDL Cholesterol Urine pH Urine WBC (Auto) 11/03/17 11/03/17 11/03/17 06:56 11:12 12:10 WBC Hgb Hct MCH Plt Count Basophils % (Manual) Seg Neutrophils # Man Basophils # (Manual) D-Dimer POC ABG pH POC ABG pCO2 POC ABG pO2 Potassium Chloride Carbon Dioxide Creatinine Glucose Lactic Acid 2.20 H* Calcium Phosphorus AST Ammonia Total Creatine Kinase 1456 H CK-MB (CK-2) 10.7 H Troponin T 0.081 H D C-Reactive Protein LDL Cholesterol Direct 45 L HDL Cholesterol 76 H Urine pH Urine WBC (Auto) 11/03/17 11/03/17 11/03/17 20:40 20:50 Unknown WBC Hgb Hct MCH Plt Count Basophils % (Manual) Seg Neutrophils # Man Basophils # (Manual) D-Dimer 2299.36 H POC ABG pH POC ABG pCO2 POC ABG pO2 Potassium Chloride Carbon Dioxide Creatinine Glucose Lactic Acid Calcium Phosphorus 2.40 L AST Ammonia Total Creatine Kinase CK-MB (CK-2) Troponin T C-Reactive Protein 1.40 H LDL Cholesterol Direct HDL Cholesterol Urine pH 8.0 H Urine WBC (Auto) 7.0 H 11/04/17 11/04/17 11/04/17 04:09 04:09 04:09 WBC 26.2 H Hgb Hct MCH 33 H Plt Count 78 L Basophils % (Manual) Seg Neutrophils # Man Basophils # (Manual) D-Dimer POC ABG pH POC ABG pCO2 POC ABG pO2 Potassium 3.2 L D Chloride Carbon Dioxide Creatinine 0.4 L Glucose 119 H Lactic Acid Calcium 7.9 L Phosphorus AST Ammonia 73.0 H Total Creatine Kinase CK-MB (CK-2) Troponin T C-Reactive Protein LDL Cholesterol Direct HDL Cholesterol Urine pH Urine WBC (Auto) 11/04/17 11/05/17 05:36 05:23 WBC Hgb Hct MCH Plt Count Basophils % (Manual) Seg Neutrophils # Man Basophils # (Manual) D-Dimer POC ABG pH POC ABG pCO2 POC ABG pO2 70 L 155 H Potassium Chloride Carbon Dioxide Creatinine Glucose Lactic Acid Calcium Phosphorus AST Ammonia Total Creatine Kinase CK-MB (CK-2) Troponin T C-Reactive Protein LDL Cholesterol Direct HDL Cholesterol Urine pH Urine WBC (Auto) CT scan - chest: image reviewed (No P.E.; mild bullous emphysema) Allied health notes reviewed: nursing
[2017-11-05 13:35] LABS: Hematocrit 37.3 % (30.3-42.9); Hemoglobin 12.8 gm/dl (10.1-14.3); Mean Corpuscular HGB Conc 34 % (30-34); Mean Corpuscular Hemoglobin 32 pg (28-32); Mean Corpuscular Volume 94 fl (79-97); Platelet Count 83 K/mm3 (140-440); Red Blood Count 3.95 M/mm3 (3.65-5.03); Red Cell Distribution Width 13.7 % (13.2-15.2)
[2017-11-05 13:55] LABS: BUN/Creatinine Ratio 45; Blood Urea Nitrogen 18 mg/dL (7-17); Calcium 8.7 mg/dL (8.4-10.2); Hemolysis Index 41
--- NOTE | 2017-11-05 15:07 | Progress Note ---
Assessment and Plan Assessment: Acute respiratory failure - intubated COPD with acute exacerbation AMS Leukocytosis / ? aspiration PNA / ? sepsis Minimally elevated troponin Thrombocytopenia Hyperammonemia Elevated DDimer Plan: Continue supportive management. Consider ischemic evaluation once medically stabilized. The patient has been seen in conjunction with Dr. Akers who agrees with the assessment and plan of care. Subjective Date of service: 11/05/17 Principal diagnosis: Acute Hypoxemic Respiratory Failure; AE COPD Interval history: pt remains intubated. sedated but able to follow commands per primary RN. Objective Last Vital Signs Temp 99.0 F 11/05/17 04:00 Pulse 67 11/05/17 11:10 Resp 20 11/05/17 10:15 BP 116/66 11/05/17 11:10 Pulse Ox 99 11/05/17 11:10 - Physical Examination General: Other (intubated, sedated but able to follow commands per primary RN. ) Neck: Positive: neck supple Cardiac: Positive: Reg Rate and Rhythm, S1/S2 Lungs: Positive: Decreased Breath Sounds, Oxygen, Ventilated Respirations Abdomen: Positive: Soft Skin: Negative: Rash Extremities: Absent: edema - Labs and Meds CBC 11/05/17 Range/Units 13:12 WBC 28.5 H (4.5-11.0) K/mm3 RBC 3.95 (3.65-5.03) M/mm3 Hgb 12.8 (10.1-14.3) gm/dl Hct 37.3 (30.3-42.9) % Plt Count 83 L (140-440) K/mm3 Comprehensive Metabolic Panel 11/05/17 Range/Units 13:12 Sodium 140 (137-145) mmol/L Potassium 4.0 D (3.6-5.0) mmol/L Chloride 106.0 (98-107) mmol/L Carbon Dioxide 25 (22-30) mmol/L BUN 18 H (7-17) mg/dL Creatinine 0.4 L (0.7-1.2) mg/dL Glucose 118 H (65-100) mg/dL Calcium 8.7 (8.4-10.2) mg/dL - Imaging and Cardiology EKG: report reviewed, image reviewed Echo: report reviewed - Telemetry EKG Rhythm: Sinus Rhythm - EKG Sinus rhythms and dysrhythmias: sinus rhythm - Allied health notes Allied health notes reviewed: nursing
[2017-11-05] MEDS: SODIUM CHLORIDE FLUSH SYRINGE 10 ML IV SCH (22:29)
[2017-11-05] MEDS: PEPCID PO SCH (22:29)
[2017-11-06] MEDS: CEPHULAC PO SCH ×3 (00:07→13:48)
[2017-11-06] MEDS: fentaNYL DRIP Premix 2,000 MCG/100 ML BAG IV SCH (04:13)
[2017-11-06 04:46] LABS: Hematocrit 37.8 % (30.3-42.9); Hemoglobin 12.4 gm/dl (10.1-14.3); Mean Corpuscular HGB Conc 33 % (30-34); Mean Corpuscular Hemoglobin 31 pg (28-32); Mean Corpuscular Volume 96 fl (79-97); Red Blood Count 3.95 M/mm3 (3.65-5.03); Red Cell Distribution Width 13.6 % (13.2-15.2)
[2017-11-06 04:53] LABS: Platelet Count 66 K/mm3 (140-440)
[2017-11-06 05:11] LABS: BUN/Creatinine Ratio 45; Blood Urea Nitrogen 18 mg/dL (7-17); Calcium 8.6 mg/dL (8.4-10.2); Hemolysis Index 7
--- NOTE | 2017-11-06 08:48 | XRay Report ---
Comparison of the current study with the prior examination of 11/05/17 shows no appreciable interval change.
[2017-11-06] MEDS: PEPCID PO SCH ×2 (09:25→21:42)
[2017-11-06] MEDS: LEVAQUIN 750MG/150ML 750 MG/150 ML BAG IV SCH (09:25)
[2017-11-06] MEDS: LOVENOX SUB-Q SCH (09:26)
--- NOTE | 2017-11-06 10:37 | Progress Note ---
Assessment and Plan Assessment: Acute respiratory failure - intubated COPD with acute exacerbation AMS Leukocytosis / ? aspiration PNA / ? sepsis Minimally elevated troponin Thrombocytopenia Hyperammonemia Elevated DDimer Plan: Continue supportive management. Consider ischemic evaluation once medically stabilized. The patient has been seen in conjunction with Dr. Akers who agrees with the assessment and plan of care. Subjective Date of service: 11/06/17 Principal diagnosis: Acute Hypoxemic Respiratory Failure; AE COPD Interval history: pt remains intubated. eyes open and able to follow commands appropriately. Objective Last Vital Signs Temp 98.9 F 11/06/17 08:00 Pulse 74 11/06/17 10:15 Resp 9 L 11/06/17 10:15 BP 111/71 11/06/17 10:15 Pulse Ox 99 11/06/17 10:15 - Physical Examination General: Other (intubated, following commands) HEENT: Positive: PERRL, Normocephaly, Mucus Membranes Moist Neck: Positive: neck supple Cardiac: Positive: Reg Rate and Rhythm, S1/S2 Lungs: Positive: Decreased Breath Sounds, Oxygen, Ventilated Respirations Neuro: Positive: Other (intubated, following commands) Abdomen: Positive: Soft Skin: Negative: Rash Extremities: Absent: edema - Labs and Meds Lipids 11/06/17 Range/Units 04:19 Triglycerides 130 (2-149) mg/dL CBC 11/05/17 11/06/17 Range/Units 13:12 04:19 WBC 28.5 H 22.1 H (4.5-11.0) K/mm3 RBC 3.95 3.95 (3.65-5.03) M/mm3 Hgb 12.8 12.4 (10.1-14.3) gm/dl Hct 37.3 37.8 (30.3-42.9) % Plt Count 83 L 66 L (140-440) K/mm3 Comprehensive Metabolic Panel 11/05/17 11/06/17 Range/Units 13:12 04:19 Sodium 140 142 (137-145) mmol/L Potassium 4.0 D 3.8 (3.6-5.0) mmol/L Chloride 106.0 105.9 (98-107) mmol/L Carbon Dioxide 25 27 (22-30) mmol/L BUN 18 H 18 H (7-17) mg/dL Creatinine 0.4 L 0.4 L (0.7-1.2) mg/dL Glucose 118 H 119 H (65-100) mg/dL Calcium 8.7 8.6 (8.4-10.2) mg/dL - Imaging and Cardiology EKG: report reviewed, image reviewed Echo: report reviewed - Telemetry EKG Rhythm: Sinus Rhythm - EKG Sinus rhythms and dysrhythmias: sinus rhythm - Allied health notes Allied health notes reviewed: nursing
--- NOTE | 2017-11-06 12:25 | Progress Note ---
Assessment and Plan Acute hypercapnic respiratory failure, on mechanical ventilatory support. Acute exacerbation of chronic obstructive pulmonary disease. Acute encephalopathy with a normal CT of the brain. Tobacco use disorders, now in remission. Leukocytosis. Thrombocytopenia. Hepatic encephalopathy as evidenced by the hyperammonemia. Sepsis syndrome with mild lactic acidosis. Element of rhabdomyolysis with elevated serum creatinine and a mild metabolic acidosis. Possible alcohol abuse. - continue aspiration precautions and address VAP bundle daily - continue daily SAT's - continue daily SBT's (will extubate today if passes to prn BIPAP as still with some increased work of breathing) - continue bronchodilators with pulmonary hygiene per RT - continue systemic steroids - prn analgesia - continue empiric AB's but discontinue vancomycin - continue enteral nutrition - continue lactulose and follow ammonia level (pending) - continue other care per attending / other consultants ... re-evaluate in am and prn .... 30' CCT Subjective Date of service: 11/06/17 Principal diagnosis: Acute Hypoxemic Respiratory Failure; AE COPD Interval history: Patient is seen today for: Acute Hypoxemic Respiratory Failure; AE COPD Seen and examined at bedside; 24hour events reviewed; nursing and respiratory care staff consulted; no adverse overnight events reported to me; resting peacefully in bed; tolerating PSV a little better now; no N/V/F/C; no new issues otherwise Objective Vital Signs - 12hr 11/06/17 11/06/17 11/06/17 00:31 00:45 01:00 Temperature Pulse Rate 93 H 92 H 86 Pulse Rate [ From Monitor] Respiratory 9 L 9 L 10 L Rate Blood Pressure 113/72 113/72 106/67 O2 Sat by Pulse 94 95 95 Oximetry 11/06/17 11/06/17 11/06/17 01:15 01:20 01:31 Temperature Pulse Rate 90 87 Pulse Rate [ From Monitor] Respiratory 10 L 12 10 L Rate Blood Pressure 106/67 106/67 O2 Sat by Pulse 95 96 96 Oximetry 11/06/17 11/06/17 11/06/17 01:45 02:00 02:15 Temperature Pulse Rate 82 81 82 Pulse Rate [ From Monitor] Respiratory 10 L 10 L 10 L Rate Blood Pressure 106/67 94/58 94/58 O2 Sat by Pulse 95 96 96 Oximetry 11/06/17 11/06/17 11/06/17 02:20 02:31 02:45 Temperature Pulse Rate 81 79 Pulse Rate [ From Monitor] Respiratory 12 9 L 9 L Rate Blood Pressure 94/58 94/58 O2 Sat by Pulse 96 96 96 Oximetry 11/06/17 11/06/17 11/06/17 03:00 03:15 03:30 Temperature Pulse Rate 80 78 78 Pulse Rate [ From Monitor] Respiratory 10 L 10 L 12 Rate Blood Pressure 103/63 94/58 O2 Sat by Pulse 96 95 96 Oximetry 11/06/17 11/06/17 11/06/17 03:31 03:45 03:47 Temperature 98.2 F Pulse Rate 74 77 Pulse Rate [ From Monitor] Respiratory 9 L 10 L Rate Blood Pressure 94/58 94/58 O2 Sat by Pulse 95 95 Oximetry 11/06/17 11/06/17 11/06/17 04:00 04:15 04:31 Temperature Pulse Rate 75 74 71 Pulse Rate [ From Monitor] Respiratory 9 L 10 L 10 L Rate Blood Pressure 118/71 118/71 118/71 O2 Sat by Pulse 96 95 97 Oximetry 11/06/17 11/06/17 11/06/17 04:45 04:50 05:00 Temperature Pulse Rate 74 75 70 Pulse Rate [ 71 From Monitor] Respiratory 10 L 10 L Rate Blood Pressure 118/71 118/71 104/56 O2 Sat by Pulse 98 94 98 Oximetry 11/06/17 11/06/17 11/06/17 05:15 05:31 05:45 Temperature Pulse Rate 73 71 68 Pulse Rate [ From Monitor] Respiratory 10 L 10 L 9 L Rate Blood Pressure 104/56 104/56 104/56 O2 Sat by Pulse 98 97 98 Oximetry 11/06/17 11/06/17 11/06/17 06:00 06:15 06:30 Temperature Pulse Rate 69 66 Pulse Rate [ 71 From Monitor] Respiratory 10 L 10 L 12 Rate Blood Pressure 105/63 105/63 O2 Sat by Pulse 98 98 96 Oximetry 11/06/17 11/06/17 11/06/17 06:31 06:45 07:00 Temperature Pulse Rate 68 70 67 Pulse Rate [ From Monitor] Respiratory 10 L 9 L 9 L Rate Blood Pressure 105/63 105/63 123/74 O2 Sat by Pulse 98 100 100 Oximetry 11/06/17 11/06/17 11/06/17 07:15 07:31 07:40 Temperature Pulse Rate 68 67 71 Pulse Rate [ From Monitor] Respiratory 10 L 10 L Rate Blood Pressure 123/74 123/74 123/74 O2 Sat by Pulse 100 100 100 Oximetry 11/06/17 11/06/17 11/06/17 07:45 08:00 08:15 Temperature 98.9 F Pulse Rate 65 68 66 Pulse Rate [ 68 From Monitor] Respiratory 9 L 10 L 10 L Rate Blood Pressure 123/74 112/70 112/70 O2 Sat by Pulse 100 99 99 Oximetry 11/06/17 11/06/17 11/06/17 08:31 08:45 09:00 Temperature Pulse Rate 75 69 79 Pulse Rate [ From Monitor] Respiratory 9 L 10 L 10 L Rate Blood Pressure 112/70 112/70 114/73 O2 Sat by Pulse 97 98 98 Oximetry 11/06/17 11/06/17 11/06/17 09:15 09:31 09:45 Temperature Pulse Rate 68 68 69 Pulse Rate [ From Monitor] Respiratory 9 L 10 L 10 L Rate Blood Pressure 114/73 114/73 114/73 O2 Sat by Pulse 98 97 98 Oximetry 11/06/17 11/06/17 11/06/17 10:00 10:15 10:50 Temperature Pulse Rate 72 74 68 Pulse Rate [ From Monitor] Respiratory 10 L 9 L Rate Blood Pressure 111/71 111/71 111/71 O2 Sat by Pulse 99 99 99 Oximetry 11/06/17 12:21 Temperature Pulse Rate 120 H Pulse Rate [ From Monitor] Respiratory 23 Rate Blood Pressure 132/77 O2 Sat by Pulse 99 Oximetry Constitutional: no acute distress, alert Eyes: non-icteric ENT: oropharynx moist, other (ETT in place) Neck: supple, no lymphadenopathy, no JVD, other (no thyromegaly) Effort: mildly labored Ascultation: Bilateral: diminished breath sounds, wheezes, rhonchi Percussion: Bilateral: not dull Cardiovascular: regular rate and rhythm, other (no R/M) Gastrointestinal: normoactive bowel sounds, soft, non-tender, non-distended, other (no palpable HSM) Integumentary: normal Extremities: no cyanosis, no edema, pulses normal, no ischemia or petechiae Neurologic: normal mental status, non-focal exam, pupils equal and round, motor strength normal and Psychiatric: mood appropriate, affect normal CBC and BMP: 11/06/17 04:19 11/06/17 04:19 ABG, PT/INR, D-dimer: ABG POC ABG pH 7.408 (7.35-7.45) 11/06/17 04:39 POC ABG pCO2 43.7 (35-45) 11/06/17 04:39 POC ABG pO2 52 (80-105) L 11/06/17 04:39 POC ABG HCO3 27.6 11/06/17 04:39 POC ABG Total CO2 29 11/06/17 04:39 POC ABG O2 Sat 87 11/06/17 04:39 PT/INR, D-dimer PT 13.9 Sec. (12.2-14.9) 11/03/17 02:57 INR 1.02 (0.87-1.13) 11/03/17 02:57 D-Dimer 2299.36 ng/mlDDU (0-234) H 11/03/17 20:50 Abnormal lab findings: Abnormal Labs 11/03/17 11/03/17 11/03/17 02:17 02:17 02:17 WBC 12.9 H Hgb 14.9 H Hct 44.5 H MCH 33 H Plt Count 119 L Basophils % (Manual) 2.0 H Seg Neutrophils # Man 7.9 H Basophils # (Manual) 0.3 H D-Dimer POC ABG pH POC ABG pCO2 POC ABG pO2 Potassium Chloride 92.5 L Carbon Dioxide 21 L BUN Creatinine Glucose 229 H Lactic Acid Calcium Phosphorus AST 52 H Ammonia 145.0 H Total Creatine Kinase 236 H CK-MB (CK-2) 5.1 H Troponin T C-Reactive Protein LDL Cholesterol Direct HDL Cholesterol Urine pH Urine WBC (Auto) 11/03/17 11/03/17 11/03/17 03:14 06:56 06:56 WBC Hgb Hct MCH Plt Count Basophils % (Manual) Seg Neutrophils # Man Basophils # (Manual) D-Dimer POC ABG pH 7.274 L POC ABG pCO2 66.0 H POC ABG pO2 552 H Potassium Chloride Carbon Dioxide BUN Creatinine Glucose Lactic Acid 2.30 H* Calcium Phosphorus AST Ammonia Total Creatine Kinase 1369 H CK-MB (CK-2) 10.6 H Troponin T C-Reactive Protein LDL Cholesterol Direct HDL Cholesterol Urine pH Urine WBC (Auto) 0511/03/17 11/03/17 06:56 11:12 12:10 WBC Hgb Hct MCH Plt Count Basophils % (Manual) Seg Neutrophils # Man Basophils # (Manual) D-Dimer POC ABG pH POC ABG pCO2 POC ABG pO2 Potassium Chloride Carbon Dioxide BUN Creatinine Glucose Lactic Acid 2.20 H* Calcium Phosphorus AST Ammonia Total Creatine Kinase 1456 H CK-MB (CK-2) 10.7 H Troponin T 0.081 H D C-Reactive Protein LDL Cholesterol Direct 45 L HDL Cholesterol 76 H Urine pH Urine WBC (Auto) 11/03/17 11/03/17 11/03/17 20:40 20:50 Unknown WBC Hgb Hct MCH Plt Count Basophils % (Manual) Seg Neutrophils # Man Basophils # (Manual) D-Dimer 2299.36 H POC ABG pH POC ABG pCO2 POC ABG pO2 Potassium Chloride Carbon Dioxide BUN Creatinine Glucose Lactic Acid Calcium Phosphorus 2.40 L AST Ammonia Total Creatine Kinase CK-MB (CK-2) Troponin T C-Reactive Protein 1.40 H LDL Cholesterol Direct HDL Cholesterol Urine pH 8.0 H Urine WBC (Auto) 7.0 H 11/04/17 11/04/17 11/04/17 04:09 04:09 04:09 WBC 26.2 H Hgb Hct MCH 33 H Plt Count 78 L Basophils % (Manual) Seg Neutrophils # Man Basophils # (Manual) D-Dimer POC ABG pH POC ABG pCO2 POC ABG pO2 Potassium 3.2 L D Chloride Carbon Dioxide BUN Creatinine 0.4 L Glucose 119 H Lactic Acid Calcium 7.9 L Phosphorus AST Ammonia 73.0 H Total Creatine Kinase CK-MB (CK-2) Troponin T C-Reactive Protein LDL Cholesterol Direct HDL Cholesterol Urine pH Urine WBC (Auto) 11/04/17 11/05/17 11/05/17 05:36 05:23 13:12 WBC 28.5 H Hgb Hct MCH Plt Count 83 L Basophils % (Manual) Seg Neutrophils # Man Basophils # (Manual) D-Dimer POC ABG pH POC ABG pCO2 POC ABG pO2 70 L 155 H Potassium Chloride Carbon Dioxide BUN Creatinine Glucose Lactic Acid Calcium Phosphorus AST Ammonia Total Creatine Kinase CK-MB (CK-2) Troponin T C-Reactive Protein LDL Cholesterol Direct HDL Cholesterol Urine pH Urine WBC (Auto) 11/05/17 11/06/17 11/06/17 13:12 04:19 04:19 WBC 22.1 H Hgb Hct MCH Plt Count 66 L Basophils % (Manual) Seg Neutrophils # Man Basophils # (Manual) D-Dimer POC ABG pH POC ABG pCO2 POC ABG pO2 Potassium Chloride Carbon Dioxide BUN 18 H 18 H Creatinine 0.4 L 0.4 L Glucose 118 H 119 H Lactic Acid Calcium Phosphorus AST Ammonia Total Creatine Kinase CK-MB (CK-2) Troponin T C-Reactive Protein LDL Cholesterol Direct HDL Cholesterol Urine pH Urine WBC (Auto) 11/06/17 04:39 WBC Hgb Hct MCH Plt Count Basophils % (Manual) Seg Neutrophils # Man Basophils # (Manual) D-Dimer POC ABG pH POC ABG pCO2 POC ABG pO2 52 L Potassium Chloride Carbon Dioxide BUN Creatinine Glucose Lactic Acid Calcium Phosphorus AST Ammonia Total Creatine Kinase CK-MB (CK-2) Troponin T C-Reactive Protein LDL Cholesterol Direct HDL Cholesterol Urine pH Urine WBC (Auto) Chest x-ray: image reviewed (ETT in good position; no new infiltrates) Allied health notes reviewed: nursing
[2017-11-06] MEDS: REGLAN IV SCH ×3 (13:47→23:35)
--- NOTE | 2017-11-06 18:31 | Progress Note ---
Assessment and Plan Assessment and plan: Patient is a 62-year-old -Maltese female with history of hypertension and COPD, who was brought to the ED via EMS on account of 3 weeks history of worsening shortness of breath. Of note, history was obtained from the because the patient is intubated. The stated that her shortness of breath became worse last night. At some point, she went to the bathroom and subsequently, he found her on the floor passed out and unresponsive. He then called 911. No reported preceding history of fever, cough, headaches, chest pain, nausea or vomiting. Patient continues on mechanical ventilation. Imaging studies of the brain unremarkable. She is currently being treated with antibiotics for suspicious aspiration pneumonia. Cardiology was consulted echocardiogram did not reveal any wall motion abnormality ejection fraction was 50-55%. She does have a history of COPD. At this point working diagnosis of syncope on the cause. If no significant improvement patient will benefit from a neurology consult. Acute respiratory failure with hypercapnia -Status post intubation -Will monitor with ABG level -Rule out pulmonary embolism Acute encephalopathy, probably secondary to carbon dioxide narcosis -Head CT scan is neg except for what noted old lacunar infarct on the right periventricular white matter -Will monitor clinically Acute COPD exacerbation -Patient will be placed on IV steroid and IV antibiotic SIRS/possible sepsis, exact source of infection unknown -Will place patient on IV antibiotic with levaquin -Follow up lactic acid level, sputum, urine and blood culture results -Chest x-ray is negative for acute infection on initial exam appears to highly suspicious of aspiration. Hyperglycemia -Will check hemoglobin A1c level Elevated hemoglobin/hematocrit, likely secondary to hemoconcentration -Will hydrate patient and monitor her H&H Thrombocytopenia * Monitor closely. Leukocytosis * Worse likely secondary to dementia normalization of steroids Elevated d-dimer * no pulmonary embolisim NSTEMI type II -No mention of wall motion abnormality EF is 50-55% on echocardiogram. And obtain cardiology consultation. Prophylaxis -DVT prophylaxis with Lovenox and GI prophylaxis with famotidine History Interval history: Patient was seen and examined. Follow-up on current diagnosis. Overnight uneventful. Patient denies any chest pain, shortness breath, nausea/vomiting or severe headaches. Imaging, nursing note, chart, labs and old chart reviewed. Discussed with patient. Hospitalist Physical - Physical exam Narrative exam: GEN: ill appearing HEENT: NCAT, EOMI, PERRL, OP ett in place NECK: supple, no adenopathy, no thyromegaly, no JVD CVS/HEART: RRR, normal S1S2, pulses present bilaterally CHEST/LUNGS: Symmetrical chest expansion, good air entry bilaterally GI/Abdomen: soft, NTND, good bowel sounds, no guarding or rebound Neuro: CN 2-12 grossly intact, Psych: calm - Constitutional Vitals: Temp Pulse Resp BP Pulse Ox 99.5 F 96 H 12 154/96 90 11/06/17 16:00 11/06/17 18:15 11/06/17 18:15 11/06/17 18:15 11/06/17 18:15 General appearance: Present: no acute distress, other (patient is intubated and sedated) Results - Labs CBC & Chem 7: 11/07/17 05:04 11/07/17 05:04 Labs: Laboratory Last Values WBC 22.1 K/mm3 (4.5-11.0) H 11/06/17 04:19 RBC 3.95 M/mm3 (3.65-5.03) 11/06/17 04:19 Hgb 12.4 gm/dl (10.1-14.3) 11/06/17 04:19 Hct 37.8 % (30.3-42.9) 11/06/17 04:19 MCV 96 fl (79-97) 11/06/17 04:19 MCH 31 pg (28-32) 11/06/17 04:19 MCHC 33 % (30-34) 11/06/17 04:19 RDW 13.6 % (13.2-15.2) 11/06/17 04:19 Plt Count 66 K/mm3 (140-440) L 11/06/17 04:19 Add Manual Diff Complete 11/03/17 02:17 Total Counted 100 11/03/17 02:17 Seg Neuts % (Manual) 61.0 % (40.0-70.0) 11/03/17 02:17 Band Neutrophils % 6.0 % 11/03/17 02:17 Lymphocytes % (Manual) 29.0 % (13.4-35.0) 11/03/17 02:17 Reactive Lymphs % (Man) 0 % 11/03/17 02:17 Monocytes % (Manual) 1.0 % (0.0-7.3) 11/03/17 02:17 Eosinophils % (Manual) 1.0 % (0.0-4.3) 11/03/17 02:17 Basophils % (Manual) 2.0 % (0.0-1.8) H 11/03/17 02:17 Metamyelocytes % 0 % 11/03/17 02:17 Myelocytes % 0 % 11/03/17 02:17 Promyelocytes % 0 % 11/03/17 02:17 Blast Cells % 0 % 11/03/17 02:17 Nucleated RBC % Not Reportable 11/03/17 02:17 Seg Neutrophils # Man 7.9 K/mm3 (1.8-7.7) H 11/03/17 02:17 Band Neutrophils # 0.8 K/mm3 11/03/17 02:17 Lymphocytes # (Manual) 3.7 K/mm3 (1.2-5.4) 11/03/17 02:17 Abs React Lymphs (Man) 0.0 K/mm3 11/03/17 02:17 Monocytes # (Manual) 0.1 K/mm3 (0.0-0.8) 11/03/17 02:17 Eosinophils # (Manual) 0.1 K/mm3 (0.0-0.4) 11/03/17 02:17 Basophils # (Manual) 0.3 K/mm3 (0.0-0.1) H 11/03/17 02:17 Metamyelocytes # 0.0 K/mm3 11/03/17 02:17 Myelocytes # 0.0 K/mm3 11/03/17 02:17 Promyelocytes # 0.0 K/mm3 11/03/17 02:17 Blast Cells # 0.0 K/mm3 11/03/17 02:17 WBC Morphology Not Reportable 11/03/17 02:17 Hypersegmented Neuts Not Reportable 11/03/17 02:17 Hyposegmented Neuts Not Reportable 11/03/17 02:17 Hypogranular Neuts Not Reportable 11/03/17 02:17 Smudge Cells Not Reportable 11/03/17 02:17 Toxic Granulation Not Reportable 11/03/17 02:17 Toxic Vacuolation Not Reportable 11/03/17 02:17 Dohle Bodies Not Reportable 11/03/17 02:17 Pelger-Huet Anomaly Not Reportable 11/03/17 02:17 Jose Rods Not Reportable 11/03/17 02:17 Platelet Estimate Consistent w auto 11/03/17 02:17 Clumped Platelets Not Reportable 11/03/17 02:17 Plt Clumps, EDTA Not Reportable 11/03/17 02:17 Large Platelets Few 11/03/17 02:17 Giant Platelets Not Reportable 11/03/17 02:17 Platelet Satelliting Not Reportable 11/03/17 02:17 Plt Morphology Comment Not Reportable 11/03/17 02:17 RBC Morphology Normal 11/03/17 02:17 Dimorphic RBCs Not Reportable 11/03/17 02:17 Polychromasia Not Reportable 11/03/17 02:17 Hypochromasia Not Reportable 11/03/17 02:17 Poikilocytosis Not Reportable 11/03/17 02:17 Anisocytosis Not Reportable 11/03/17 02:17 Microcytosis Not Reportable 11/03/17 02:17 Macrocytosis Not Reportable 11/03/17 02:17 Spherocytes Not Reportable 11/03/17 02:17 Pappenheimer Bodies Not Reportable 11/03/17 02:17 Sickle Cells Not Reportable 11/03/17 02:17 Target Cells Not Reportable 11/03/17 02:17 Tear Drop Cells Not Reportable 11/03/17 02:17 Ovalocytes Not Reportable 11/03/17 02:17 Helmet Cells Not Reportable 11/03/17 02:17 Francois-[place] Bodies Not Reportable 11/03/17 02:17 [place] Rings Not Reportable 11/03/17 02:17 [place] Cells Not Reportable 11/03/17 02:17 Bite Cells Not Reportable 11/03/17 02:17 Crenated Cell Not Reportable 11/03/17 02:17 Elliptocytes Not Reportable 11/03/17 02:17 Acanthocytes (Spur) Not Reportable 11/03/17 02:17 Rouleaux Not Reportable 11/03/17 02:17 Hemoglobin C Crystals Not Reportable 11/03/17 02:17 Schistocytes Not Reportable 11/03/17 02:17 Malaria parasites Not Reportable 11/03/17 02:17 Dennis Bodies Not Reportable 11/03/17 02:17 Hem Pathologist Commnt No 11/03/17 02:17 PT 13.9 Sec. (12.2-14.9) 11/03/17 02:57 INR 1.02 (0.87-1.13) 11/03/17 02:57 APTT 27.4 Sec. (24.2-36.6) 11/03/17 02:57 D-Dimer 2299.36 ng/mlDDU (0-234) H 11/03/17 20:50 POC ABG pH 7.370 (7.35-7.45) 11/06/17 13:58 POC ABG pCO2 47.3 (35-45) H 11/06/17 13:58 POC ABG pO2 79 (80-105) L 11/06/17 13:58 POC ABG HCO3 27.4 11/06/17 13:58 POC ABG Total CO2 29 11/06/17 13:58 POC ABG O2 Sat 95 11/06/17 13:58 POC ABG Base Excess 2 11/06/17 13:58 FiO2 40 % 11/06/17 13:58 Sodium 142 mmol/L (137-145) 11/06/17 04:19 Potassium 3.8 mmol/L (3.6-5.0) 11/06/17 04:19 Chloride 105.9 mmol/L (98-107) 11/06/17 04:19 Carbon Dioxide 27 mmol/L (22-30) 11/06/17 04:19 Anion Gap 13 mmol/L 11/06/17 04:19 BUN 18 mg/dL (7-17) H 11/06/17 04:19 Creatinine 0.4 mg/dL (0.7-1.2) L 11/06/17 04:19 Estimated GFR > 60 ml/min 11/06/17 04:19 BUN/Creatinine Ratio 45 % 11/06/17 04:19 Glucose 119 mg/dL (65-100) H 11/06/17 04:19 Hemoglobin A1c 5.2 % (4-6) 11/03/17 06:56 Lactic Acid 1.10 mmol/L (0.7-2.0) 11/04/17 19:19 Calcium 8.6 mg/dL (8.4-10.2) 11/06/17 04:19 Phosphorus 2.40 mg/dL (2.5-4.5) L 11/03/17 20:40 Magnesium 1.90 mg/dL (1.7-2.3) 11/03/17 20:40 Total Bilirubin 0.40 mg/dL (0.1-1.2) 11/03/17 02:17 AST 52 units/L (5-40) H 11/03/17 02:17 ALT 43 units/L (7-56) 11/03/17 02:17 Alkaline Phosphatase 105 units/L (35-129) 11/03/17 02:17 Ammonia 16.0 umol/L (25-60) L 11/06/17 12:35 Total Creatine Kinase 1456 units/L (30-135) H 11/03/17 12:10 CK-MB (CK-2) 10.7 ng/mL (0.0-4.0) H 11/03/17 12:10 CK-MB (CK-2) Rel Index 0.7 (0-4) 11/03/17 12:10 Troponin T 0.024 ng/mL (0.00-0.029) 11/03/17 12:10 C-Reactive Protein 1.40 mg/dL (0.00-1.30) H 11/03/17 20:40 NT-Pro-B Natriuret Pep 40.60 pg/mL (0-900) 11/03/17 02:17 Total Protein 6.8 g/dL (6.3-8.2) 11/03/17 02:17 Albumin 4.6 g/dL (3.9-5) 11/03/17 02:17 Albumin/Globulin Ratio 2.1 % 11/03/17 02:17 Triglycerides 130 mg/dL (2-149) 11/06/17 04:19 Cholesterol 117 mg/dL (50-199) 11/03/17 06:56 LDL Cholesterol Direct 45 mg/dL (50-130) L 11/03/17 06:56 HDL Cholesterol 76 mg/dL (40-59) H 11/03/17 06:56 Cholesterol/HDL Ratio 1.53 % 11/03/17 06:56 Urine Color Yellow (Yellow) 11/03/17 Unknown Urine Turbidity Clear (Clear) 11/03/17 Unknown Urine pH 8.0 (5.0-7.0) H 11/03/17 Unknown Ur Specific [place] 1.013 (1.003-1.030) 11/03/17 Unknown Urine Protein 100 mg/dl mg/dL (Negative) 11/03/17 Unknown Urine Glucose (UA) Neg mg/dL (Negative) 11/03/17 Unknown Urine Ketones Neg mg/dL (Negative) 11/03/17 Unknown Urine Blood Sm (Negative) 11/03/17 Unknown Urine Nitrite Neg (Negative) 11/03/17 Unknown Urine Bilirubin Neg (Negative) 11/03/17 Unknown Urine Urobilinogen < 2.0 mg/dL (<2.0) 11/03/17 Unknown Ur Leukocyte Esterase Neg (Negative) 11/03/17 Unknown Urine WBC (Auto) 7.0 /HPF (0.0-6.0) H 11/03/17 Unknown Urine RBC (Auto) 19.0 /HPF (0.0-6.0) 11/03/17 Unknown U Epithel Cells (Auto) 2.0 /HPF (0-13.0) 11/03/17 Unknown Urine Bacteria (Auto) 1+ /HPF (Negative) 11/03/17 Unknown Amorphous Crystals 1+ 11/03/17 Unknown Urine Mucus Few /HPF 11/03/17 Unknown Hepatitis A IgM Ab Non-reactive (NonReactive) 11/03/17 20:50 Hep Bs Antigen Non-reactive (Negative) 11/03/17 20:50 Hep B Core IgM Ab Non-reactive (NonReactive) 11/03/17 20:50 Hepatitis C Antibody Non-reactive (NonReactive) 11/03/17 20:50 Blood Type AB POSITIVE 11/03/17 11:12 Antibody Screen Negative 11/03/17 11:12
[2017-11-06] MEDS: PULMICORT IH SCH (20:00)
[2017-11-06] MEDS: BROVANA NEBU IH SCH (20:00)
--- NOTE | 2017-11-07 02:55 | XRay Report ---
FINAL REPORT PROCEDURE: XR CHEST 1V AP TECHNIQUE: Chest radiograph anteroposterior view. CPT 01124 HISTORY: follow up respiratory failure COMPARISON: 11/05/2017 FINDINGS: Heart: Normal. Mediastinum/Vessels: Normal. Lungs/Pleural space: COPD with mild fibrosis. Slight atelectasis left lower lung. No effusion or pneumothorax. Bony thorax: No acute osseous abnormality. Life support devices: The nasogastric tube ends below the hemidiaphragms. IMPRESSION: Mild COPD. Slight atelectasis left lower lung..
[2017-11-07 05:32] LABS: Hemoglobin 13.8 gm/dl (10.1-14.3); Mean Corpuscular HGB Conc 34 % (30-34); Mean Corpuscular Hemoglobin 32 pg (28-32); Mean Corpuscular Volume 94 fl (79-97); Red Blood Count 4.26 M/mm3 (3.65-5.03); Red Cell Distribution Width 13.4 % (13.2-15.2)
[2017-11-07 05:46] LABS: Platelet Count 64 K/mm3 (140-440)
[2017-11-07 05:56] LABS: BUN/Creatinine Ratio 38; Blood Urea Nitrogen 15 mg/dL (7-17); Calcium 8.8 mg/dL (8.4-10.2); Hemolysis Index 33
[2017-11-07] MEDS: REGLAN IV SCH ×3 (06:03→18:01)
[2017-11-07] MEDS: LEVAQUIN 750MG/150ML 750 MG/150 ML BAG IV SCH (09:25)
[2017-11-07] MEDS: PEPCID PO SCH (09:25)
[2017-11-07] MEDS: SODIUM CHLORIDE FLUSH SYRINGE 10 ML IV SCH (09:26)
[2017-11-07] MEDS: PULMICORT IH SCH ×2 (10:09→19:49)
[2017-11-07] MEDS: BROVANA NEBU IH SCH ×2 (10:09→19:49)
--- NOTE | 2017-11-07 14:40 | Progress Note ---
Assessment and Plan Assessment: Acute respiratory failure - extubated to BiPAP COPD with acute exacerbation AMS Leukocytosis / ? aspiration PNA / ? sepsis Minimally elevated troponin Thrombocytopenia Hyperammonemia Elevated DDimer - chest CTA negative for PE Plan: Continue supportive management. Consider ischemic evaluation once medically stabilized. The patient has been seen in conjunction with Dr. Akers who agrees with the assessment and plan of care. Subjective Date of service: 11/07/17 Principal diagnosis: Acute Hypoxemic Respiratory Failure; AE COPD Interval history: pt extubated to BiPAP. eyes open and able to follow commands appropriately. Objective Last Vital Signs Temp 98.6 F 11/07/17 12:00 Pulse 73 11/07/17 11:31 Resp 14 11/07/17 11:31 BP 142/76 11/07/17 11:31 Pulse Ox 96 11/07/17 11:31 - Physical Examination General: No Apparent Distress HEENT: Positive: PERRL, Normocephaly, Mucus Membranes Moist Neck: Positive: neck supple Cardiac: Positive: Reg Rate and Rhythm, S1/S2 Lungs: Positive: Decreased Breath Sounds, Oxygen Neuro: Positive: Other (intubated, following commands) Abdomen: Positive: Soft Skin: Negative: Rash Extremities: Absent: edema - Labs and Meds CBC 11/07/17 Range/Units 05:04 WBC 15.4 H (4.5-11.0) K/mm3 RBC 4.26 (3.65-5.03) M/mm3 Hgb 13.8 (10.1-14.3) gm/dl Hct 40.0 (30.3-42.9) % Plt Count 64 L (140-440) K/mm3 Comprehensive Metabolic Panel 11/07/17 Range/Units 05:04 Sodium 141 (137-145) mmol/L Potassium 3.9 (3.6-5.0) mmol/L Chloride 98.5 (98-107) mmol/L Carbon Dioxide 33 H (22-30) mmol/L BUN 15 (7-17) mg/dL Creatinine 0.4 L (0.7-1.2) mg/dL Glucose 150 H (65-100) mg/dL Calcium 8.8 (8.4-10.2) mg/dL - Imaging and Cardiology EKG: report reviewed, image reviewed Echo: report reviewed - EKG Sinus rhythms and dysrhythmias: sinus rhythm - Allied health notes Allied health notes reviewed: nursing
--- NOTE | 2017-11-07 22:36 | Progress Note ---
Assessment and Plan Assessment and plan: Patient is a 62-year-old -[place] female with history of hypertension and COPD, who was brought to the ED via EMS on account of 3 weeks history of worsening shortness of breath. Of note, history was obtained from the because the patient is intubated. The stated that her shortness of breath became worse last night. At some point, she went to the bathroom and subsequently, he found her on the floor passed out and unresponsive. He then called 911. No reported preceding history of fever, cough, headaches, chest pain, nausea or vomiting. Patient continues on mechanical ventilation. Imaging studies of the brain unremarkable. She is currently being treated with antibiotics for suspicious aspiration pneumonia. Cardiology was consulted echocardiogram did not reveal any wall motion abnormality ejection fraction was 50-55%. She does have a history of COPD. At this point working diagnosis of syncope on the cause. If no significant improvement patient will benefit from a neurology consult. Acute respiratory failure with hypercapnea -Status post intubation and extubated to bipap yesterday -Will monitor with ABG level -Rule out pulmonary embolism Acute encephalopathy, probably secondary to carbon dioxide narcosis -Head CT scan is neg except for what noted old lacunar infarct on the right periventricular white matter -Will monitor clinically Acute COPD exacerbation -Patient will be placed on IV steroid and IV antibiotic SIRS/possible sepsis, exact source of infection unknown -Will place patient on IV antibiotic with levaquin -Follow up lactic acid level, sputum, urine and blood culture results -Chest x-ray is negative for acute infection on initial exam appears to highly suspicious of aspiration. Hyperglycemia -Will check hemoglobin A1c level Elevated hemoglobin/hematocrit, likely secondary to hemoconcentration -Will hydrate patient and monitor her H&H Thrombocytopenia * Monitor closely. Leukocytosis * Worse likely secondary to dementia normalization of steroids Elevated d-dimer * no pulmonary embolisim NSTEMI type II -No mention of wall motion abnormality EF is 50-55% on echocardiogram. And obtain cardiology consultation. Prophylaxis -DVT prophylaxis with Lovenox and GI prophylaxis with famotidine Transfer out of icu ischemic evaluation soon History Interval history: Patient was seen and examined. Follow-up on current diagnosis. Overnight uneventful. Patient denies any chest pain, shortness breath, nausea/vomiting or severe headaches. Imaging, nursing note, chart, labs and old chart reviewed. Discussed with patient who is extubated now Hospitalist Physical - Physical exam Narrative exam: GEN: WDWN, NAD, Awake, Alert, Orientated HEENT: NCAT, EOMI, PERRL, OP Clear NECK: supple, no adenopathy, no thyromegaly, no JVD CVS/HEART: RRR, normal S1S2, pulses present bilaterally CHEST/LUNGS: CTA B, Symmetrical chest expansion, good air entry bilaterally GI/Abdomen: soft, NTND, good bowel sounds, no guarding or rebound /Bladder: no suprapubic tenderness, no CVA or paraspinal tenderness EXT/Skin: no c/c/e, no obvious rash MSK: FROM x 4 Neuro: CN 2-12 grossly intact, no new focal deficits Psych: calm - Constitutional Vitals: Temp Pulse Resp BP Pulse Ox 97.9 F 80 16 152/81 93 11/07/17 20:05 11/07/17 20:05 11/07/17 20:05 11/07/17 20:05 11/07/17 20:05 General appearance: Present: no acute distress, other (patient is intubated and sedated) Results - Labs CBC & Chem 7: 11/07/17 05:04 11/07/17 05:04 Labs: Laboratory Last Values WBC 15.4 K/mm3 (4.5-11.0) H 11/07/17 05:04 RBC 4.26 M/mm3 (3.65-5.03) 11/07/17 05:04 Hgb 13.8 gm/dl (10.1-14.3) 11/07/17 05:04 Hct 40.0 % (30.3-42.9) 11/07/17 05:04 MCV 94 fl (79-97) 11/07/17 05:04 MCH 32 pg (28-32) 11/07/17 05:04 MCHC 34 % (30-34) 11/07/17 05:04 RDW 13.4 % (13.2-15.2) 11/07/17 05:04 Plt Count 64 K/mm3 (140-440) L 11/07/17 05:04 Add Manual Diff Complete 11/03/17 02:17 Total Counted 100 11/03/17 02:17 Seg Neuts % (Manual) 61.0 % (40.0-70.0) 11/03/17 02:17 Band Neutrophils % 6.0 % 11/03/17 02:17 Lymphocytes % (Manual) 29.0 % (13.4-35.0) 11/03/17 02:17 Reactive Lymphs % (Man) 0 % 11/03/17 02:17 Monocytes % (Manual) 1.0 % (0.0-7.3) 11/03/17 02:17 Eosinophils % (Manual) 1.0 % (0.0-4.3) 11/03/17 02:17 Basophils % (Manual) 2.0 % (0.0-1.8) H 11/03/17 02:17 Metamyelocytes % 0 % 11/03/17 02:17 Myelocytes % 0 % 11/03/17 02:17 Promyelocytes % 0 % 11/03/17 02:17 Blast Cells % 0 % 11/03/17 02:17 Nucleated RBC % Not Reportable 11/03/17 02:17 Seg Neutrophils # Man 7.9 K/mm3 (1.8-7.7) H 11/03/17 02:17 Band Neutrophils # 0.8 K/mm3 11/03/17 02:17 Lymphocytes # (Manual) 3.7 K/mm3 (1.2-5.4) 11/03/17 02:17 Abs React Lymphs (Man) 0.0 K/mm3 11/03/17 02:17 Monocytes # (Manual) 0.1 K/mm3 (0.0-0.8) 11/03/17 02:17 Eosinophils # (Manual) 0.1 K/mm3 (0.0-0.4) 11/03/17 02:17 Basophils # (Manual) 0.3 K/mm3 (0.0-0.1) H 11/03/17 02:17 Metamyelocytes # 0.0 K/mm3 11/03/17 02:17 Myelocytes # 0.0 K/mm3 11/03/17 02:17 Promyelocytes # 0.0 K/mm3 11/03/17 02:17 Blast Cells # 0.0 K/mm3 11/03/17 02:17 WBC Morphology Not Reportable 11/03/17 02:17 Hypersegmented Neuts Not Reportable 11/03/17 02:17 Hyposegmented Neuts Not Reportable 11/03/17 02:17 Hypogranular Neuts Not Reportable 11/03/17 02:17 Smudge Cells Not Reportable 11/03/17 02:17 Toxic Granulation Not Reportable 11/03/17 02:17 Toxic Vacuolation Not Reportable 11/03/17 02:17 Dohle Bodies Not Reportable 11/03/17 02:17 Pelger-Huet Anomaly Not Reportable 11/03/17 02:17 Jose Rods Not Reportable 11/03/17 02:17 Platelet Estimate Consistent w auto 11/03/17 02:17 Clumped Platelets Not Reportable 11/03/17 02:17 Plt Clumps, EDTA Not Reportable 11/03/17 02:17 Large Platelets Few 11/03/17 02:17 Giant Platelets Not Reportable 11/03/17 02:17 Platelet Satelliting Not Reportable 11/03/17 02:17 Plt Morphology Comment Not Reportable 11/03/17 02:17 RBC Morphology Normal 11/03/17 02:17 Dimorphic RBCs Not Reportable 11/03/17 02:17 Polychromasia Not Reportable 11/03/17 02:17 Hypochromasia Not Reportable 11/03/17 02:17 Poikilocytosis Not Reportable 11/03/17 02:17 Anisocytosis Not Reportable 11/03/17 02:17 Microcytosis Not Reportable 11/03/17 02:17 Macrocytosis Not Reportable 11/03/17 02:17 Spherocytes Not Reportable 11/03/17 02:17 Pappenheimer Bodies Not Reportable 11/03/17 02:17 Sickle Cells Not Reportable 11/03/17 02:17 Target Cells Not Reportable 11/03/17 02:17 Tear Drop Cells Not Reportable 11/03/17 02:17 Ovalocytes Not Reportable 11/03/17 02:17 Helmet Cells Not Reportable 11/03/17 02:17 Franc[place] Bodies Not Reportable 11/03/17 02:17 [place] Rings Not Reportable 11/03/17 02:17 [place] Cells Not Reportable 11/03/17 02:17 Bite Cells Not Reportable 11/03/17 02:17 Crenated Cell Not Reportable 11/03/17 02:17 Elliptocytes Not Reportable 11/03/17 02:17 Acanthocytes (Spur) Not Reportable 11/03/17 02:17 Rouleaux Not Reportable 11/03/17 02:17 Hemoglobin C Crystals Not Reportable 11/03/17 02:17 Schistocytes Not Reportable 11/03/17 02:17 Malaria parasites Not Reportable 11/03/17 02:17 Dennis Bodies Not Reportable 11/03/17 02:17 Hem Pathologist Commnt No 11/03/17 02:17 PT 13.9 Sec. (12.2-14.9) 11/03/17 02:57 INR 1.02 (0.87-1.13) 11/03/17 02:57 APTT 27.4 Sec. (24.2-36.6) 11/03/17 02:57 D-Dimer 2299.36 ng/mlDDU (0-234) H 11/03/17 20:50 POC ABG pH 7.370 (7.35-7.45) 11/06/17 13:58 POC ABG pCO2 47.3 (35-45) H 11/06/17 13:58 POC ABG pO2 79 (80-105) L 11/06/17 13:58 POC ABG HCO3 27.4 11/06/17 13:58 POC ABG Total CO2 29 11/06/17 13:58 POC ABG O2 Sat 95 11/06/17 13:58 POC ABG Base Excess 2 11/06/17 13:58 FiO2 40 % 11/06/17 13:58 Sodium 141 mmol/L (137-145) 11/07/17 05:04 Potassium 3.9 mmol/L (3.6-5.0) 11/07/17 05:04 Chloride 98.5 mmol/L (98-107) 11/07/17 05:04 Carbon Dioxide 33 mmol/L (22-30) H 11/07/17 05:04 Anion Gap 13 mmol/L 11/07/17 05:04 BUN 15 mg/dL (7-17) 11/07/17 05:04 Creatinine 0.4 mg/dL (0.7-1.2) L 11/07/17 05:04 Estimated GFR > 60 ml/min 11/07/17 05:04 BUN/Creatinine Ratio 38 % 11/07/17 05:04 Glucose 150 mg/dL (65-100) H 11/07/17 05:04 Hemoglobin A1c 5.2 % (4-6) 11/03/17 06:56 Lactic Acid 1.10 mmol/L (0.7-2.0) 11/04/17 19:19 Calcium 8.8 mg/dL (8.4-10.2) 11/07/17 05:04 Phosphorus 2.40 mg/dL (2.5-4.5) L 11/03/17 20:40 Magnesium 1.90 mg/dL (1.7-2.3) 11/03/17 20:40 Total Bilirubin 0.40 mg/dL (0.1-1.2) 11/03/17 02:17 AST 52 units/L (5-40) H 11/03/17 02:17 ALT 43 units/L (7-56) 11/03/17 02:17 Alkaline Phosphatase 105 units/L (35-129) 11/03/17 02:17 Ammonia 16.0 umol/L (25-60) L 11/06/17 12:35 Total Creatine Kinase 1456 units/L (30-135) H 11/03/17 12:10 CK-MB (CK-2) 10.7 ng/mL (0.0-4.0) H 11/03/17 12:10 CK-MB (CK-2) Rel Index 0.7 (0-4) 11/03/17 12:10 Troponin T 0.024 ng/mL (0.00-0.029) 11/03/17 12:10 C-Reactive Protein 1.40 mg/dL (0.00-1.30) H 11/03/17 20:40 NT-Pro-B Natriuret Pep 40.60 pg/mL (0-900) 11/03/17 02:17 Total Protein 6.8 g/dL (6.3-8.2) 11/03/17 02:17 Albumin 4.6 g/dL (3.9-5) 11/03/17 02:17 Albumin/Globulin Ratio 2.1 % 11/03/17 02:17 Triglycerides 130 mg/dL (2-149) 11/06/17 04:19 Cholesterol 117 mg/dL (50-199) 11/03/17 06:56 LDL Cholesterol Direct 45 mg/dL (50-130) L 11/03/17 06:56 HDL Cholesterol 76 mg/dL (40-59) H 11/03/17 06:56 Cholesterol/HDL Ratio 1.53 % 11/03/17 06:56 Urine Color Yellow (Yellow) 11/03/17 Unknown Urine Turbidity Clear (Clear) 11/03/17 Unknown Urine pH 8.0 (5.0-7.0) H 11/03/17 Unknown Ur Specific [place] 1.013 (1.003-1.030) 11/03/17 Unknown Urine Protein 100 mg/dl mg/dL (Negative) 11/03/17 Unknown Urine Glucose (UA) Neg mg/dL (Negative) 11/03/17 Unknown Urine Ketones Neg mg/dL (Negative) 11/03/17 Unknown Urine Blood Sm (Negative) 11/03/17 Unknown Urine Nitrite Neg (Negative) 11/03/17 Unknown Urine Bilirubin Neg (Negative) 11/03/17 Unknown Urine Urobilinogen < 2.0 mg/dL (<2.0) 11/03/17 Unknown Ur Leukocyte Esterase Neg (Negative) 11/03/17 Unknown Urine WBC (Auto) 7.0 /HPF (0.0-6.0) H 11/03/17 Unknown Urine RBC (Auto) 19.0 /HPF (0.0-6.0) 11/03/17 Unknown U Epithel Cells (Auto) 2.0 /HPF (0-13.0) 11/03/17 Unknown Urine Bacteria (Auto) 1+ /HPF (Negative) 11/03/17 Unknown Amorphous Crystals 1+ 11/03/17 Unknown Urine Mucus Few /HPF 11/03/17 Unknown Hepatitis A IgM Ab Non-reactive (NonReactive) 11/03/17 20:50 Hep Bs Antigen Non-reactive (Negative) 11/03/17 20:50 Hep B Core IgM Ab Non-reactive (NonReactive) 11/03/17 20:50 Hepatitis C Antibody Non-reactive (NonReactive) 11/03/17 20:50 Blood Type AB POSITIVE 11/03/17 11:12 Antibody Screen Negative 11/03/17 11:12
[2017-11-08] MEDS: REGLAN IV SCH ×3 (00:15→12:55)
[2017-11-08] MEDS: SODIUM CHLORIDE FLUSH SYRINGE 10 ML IV SCH ×3 (00:15→22:17)
[2017-11-08 07:24] LABS: Hematocrit 42.6 % (30.3-42.9); Hemoglobin 14.7 gm/dl (10.1-14.3); Mean Corpuscular HGB Conc 35 % (30-34); Mean Corpuscular Hemoglobin 33 pg (28-32); Mean Corpuscular Volume 95 fl (79-97); Red Cell Distribution Width 13.3 % (13.2-15.2)
[2017-11-08 07:25] LABS: Platelet Count 79 K/mm3 (140-440)
[2017-11-08 07:39] LABS: BUN/Creatinine Ratio 33; Blood Urea Nitrogen 13 mg/dL (7-17); Hemolysis Index 16
[2017-11-08] MEDS: BROVANA NEBU IH SCH ×2 (08:21→21:10)
[2017-11-08] MEDS: PULMICORT IH SCH ×2 (08:21→21:10)
[2017-11-08] MEDS: PEPCID PO SCH ×3 (10:24→22:14)
--- NOTE | 2017-11-08 14:13 | Progress Note ---
Assessment and Plan Assessment and plan: Mrs. Brandon is a 62-year-old woman with history of hypertension and COPD, who presented to ED with severe sob and confusion requiring Intubation. per chart: The stated that her shortness of breath the night prior to presentation and at some point, she went to the bathroom and subsequently, he found her on the floor passed out and unresponsive. He then called 911. Patient continues on mechanical ventilation. Imaging studies of the brain unremarkable. She is currently being treated with antibiotics for suspicious aspiration pneumonia. Cardiology was consulted echocardiogram did not reveal any wall motion abnormality ejection fraction was 50-55%. She does have a history of COPD. At this point working diagnosis of syncope on the cause. If no significant improvement patient will benefit from a neurology consult. Acute respiratory failure with hypercapnea -Status post intubation and extubated to bipap yesterday -Will monitor with ABG level -Rule out pulmonary embolism Acute encephalopathy, probably secondary to carbon dioxide narcosis -Head CT scan is neg except for what noted old lacunar infarct on the right periventricular white matter -Will monitor clinically Acute COPD exacerbation -Patient will be placed on IV steroid and IV antibiotic SIRS/possible sepsis, exact source of infection unknown -Will place patient on IV antibiotic with levaquin -Follow up lactic acid level, sputum, urine and blood culture results -Chest x-ray is negative for acute infection on initial exam appears to highly suspicious of aspiration. Hyperglycemia -Will check hemoglobin A1c level Elevated hemoglobin/hematocrit, likely secondary to hemoconcentration -Will hydrate patient and monitor her H&H Thrombocytopenia * Monitor closely. Leukocytosis * Worse likely secondary to dementia normalization of steroids Elevated d-dimer * no pulmonary embolisim NSTEMI type II -No mention of wall motion abnormality EF is 50-55% on echocardiogram. And obtain cardiology consultation. Prophylaxis -DVT prophylaxis with Lovenox and GI prophylaxis with famotidine Transfer out of icu on Sunday evening, 11/06/17, remove NGT, patient eating with ngt and no n/v ischemic evaluation soon, d/w Cardiology, stress test in am Disposition: pt still using bipap at night and on o2, she is unfunded, so will need to improve so that bipap will not be needed. History Interval history: Patient was seen and examined. Follow-up on current diagnosis of sob improved. Overnight uneventful. Patient denies any chest pain, shortness breath, nausea/ vomiting or severe headaches. Imaging, nursing note, chart, labs and old chart reviewed. Discussed with patient who is extubated now, still on bipap at night and 3 liters o2 nc Hospitalist Physical - Physical exam Narrative exam: GEN: WDWN, NAD, Awake, Alert, Orientated HEENT: NCAT, EOMI, PERRL, OP Clear, ngt in place NECK: supple, no adenopathy, no thyromegaly, no JVD CVS/HEART: RRR, normal S1S2, pulses present bilaterally CHEST/LUNGS: diminshed bs Symmetrical chest expansion, good air entry bilaterally GI/Abdomen: soft, NTND, good bowel sounds, no guarding or rebound /Bladder: no suprapubic tenderness, no CVA or paraspinal tenderness EXT/Skin: no c/c/e, no obvious rash MSK: FROM x 4 Neuro: CN 2-12 grossly intact, no new focal deficits Psych: calm - Constitutional Vitals: Temp Pulse Resp BP Pulse Ox 98.0 F 95 H 20 151/86 90 11/08/17 12:07 11/08/17 12:07 11/08/17 12:07 11/08/17 12:07 11/08/17 12:07 General appearance: Present: no acute distress, other (patient is intubated and sedated) Results - Labs CBC & Chem 7: 11/08/17 06:58 11/08/17 06:58 Labs: Laboratory Last Values WBC 20.4 K/mm3 (4.5-11.0) H 11/08/17 06:58 RBC 4.50 M/mm3 (3.65-5.03) 11/08/17 06:58 Hgb 14.7 gm/dl (10.1-14.3) H 11/08/17 06:58 Hct 42.6 % (30.3-42.9) 11/08/17 06:58 MCV 95 fl (79-97) 11/08/17 06:58 MCH 33 pg (28-32) H 11/08/17 06:58 MCHC 35 % (30-34) H 11/08/17 06:58 RDW 13.3 % (13.2-15.2) 11/08/17 06:58 Plt Count 79 K/mm3 (140-440) L 11/08/17 06:58 Add Manual Diff Complete 11/03/17 02:17 Total Counted 100 11/03/17 02:17 Seg Neuts % (Manual) 61.0 % (40.0-70.0) 11/03/17 02:17 Band Neutrophils % 6.0 % 11/03/17 02:17 Lymphocytes % (Manual) 29.0 % (13.4-35.0) 11/03/17 02:17 Reactive Lymphs % (Man) 0 % 11/03/17 02:17 Monocytes % (Manual) 1.0 % (0.0-7.3) 11/03/17 02:17 Eosinophils % (Manual) 1.0 % (0.0-4.3) 11/03/17 02:17 Basophils % (Manual) 2.0 % (0.0-1.8) H 11/03/17 02:17 Metamyelocytes % 0 % 11/03/17 02:17 Myelocytes % 0 % 11/03/17 02:17 Promyelocytes % 0 % 11/03/17 02:17 Blast Cells % 0 % 11/03/17 02:17 Nucleated RBC % Not Reportable 11/03/17 02:17 Seg Neutrophils # Man 7.9 K/mm3 (1.8-7.7) H 11/03/17 02:17 Band Neutrophils # 0.8 K/mm3 11/03/17 02:17 Lymphocytes # (Manual) 3.7 K/mm3 (1.2-5.4) 11/03/17 02:17 Abs React Lymphs (Man) 0.0 K/mm3 11/03/17 02:17 Monocytes # (Manual) 0.1 K/mm3 (0.0-0.8) 11/03/17 02:17 Eosinophils # (Manual) 0.1 K/mm3 (0.0-0.4) 11/03/17 02:17 Basophils # (Manual) 0.3 K/mm3 (0.0-0.1) H 11/03/17 02:17 Metamyelocytes # 0.0 K/mm3 11/03/17 02:17 Myelocytes # 0.0 K/mm3 11/03/17 02:17 Promyelocytes # 0.0 K/mm3 11/03/17 02:17 Blast Cells # 0.0 K/mm3 11/03/17 02:17 WBC Morphology Not Reportable 11/03/17 02:17 Hypersegmented Neuts Not Reportable 11/03/17 02:17 Hyposegmented Neuts Not Reportable 11/03/17 02:17 Hypogranular Neuts Not Reportable 11/03/17 02:17 Smudge Cells Not Reportable 11/03/17 02:17 Toxic Granulation Not Reportable 11/03/17 02:17 Toxic Vacuolation Not Reportable 11/03/17 02:17 Dohle Bodies Not Reportable 11/03/17 02:17 Pelger-Huet Anomaly Not Reportable 11/03/17 02:17 Jose Rods Not Reportable 11/03/17 02:17 Platelet Estimate Consistent w auto 11/03/17 02:17 Clumped Platelets Not Reportable 11/03/17 02:17 Plt Clumps, EDTA Not Reportable 11/03/17 02:17 Large Platelets Few 11/03/17 02:17 Giant Platelets Not Reportable 11/03/17 02:17 Platelet Satelliting Not Reportable 11/03/17 02:17 Plt Morphology Comment Not Reportable 11/03/17 02:17 RBC Morphology Normal 11/03/17 02:17 Dimorphic RBCs Not Reportable 11/03/17 02:17 Polychromasia Not Reportable 11/03/17 02:17 Hypochromasia Not Reportable 11/03/17 02:17 Poikilocytosis Not Reportable 11/03/17 02:17 Anisocytosis Not Reportable 11/03/17 02:17 Microcytosis Not Reportable 11/03/17 02:17 Macrocytosis Not Reportable 11/03/17 02:17 Spherocytes Not Reportable 11/03/17 02:17 Pappenheimer Bodies Not Reportable 11/03/17 02:17 Sickle Cells Not Reportable 11/03/17 02:17 Target Cells Not Reportable 11/03/17 02:17 Tear Drop Cells Not Reportable 11/03/17 02:17 Ovalocytes Not Reportable 11/03/17 02:17 Helmet Cells Not Reportable 11/03/17 02:17 [place] Bodies Not Reportable 11/03/17 02:17 [place] Rings Not Reportable 11/03/17 02:17 [place] Cells Not Reportable 11/03/17 02:17 Bite Cells Not Reportable 11/03/17 02:17 Crenated Cell Not Reportable 11/03/17 02:17 Elliptocytes Not Reportable 11/03/17 02:17 Acanthocytes (Spur) Not Reportable 11/03/17 02:17 Rouleaux Not Reportable 11/03/17 02:17 Hemoglobin C Crystals Not Reportable 11/03/17 02:17 Schistocytes Not Reportable 11/03/17 02:17 Malaria parasites Not Reportable 11/03/17 02:17 [place] Bodies Not Reportable 11/03/17 02:17 Hem Pathologist Commnt No 11/03/17 02:17 PT 13.9 Sec. (12.2-14.9) 11/03/17 02:57 INR 1.02 (0.87-1.13) 11/03/17 02:57 APTT 27.4 Sec. (24.2-36.6) 11/03/17 02:57 D-Dimer 2299.36 ng/mlDDU (0-234) H 11/03/17 20:50 POC ABG pH 7.370 (7.35-7.45) 11/06/17 13:58 POC ABG pCO2 47.3 (35-45) H 11/06/17 13:58 POC ABG pO2 79 (80-105) L 11/06/17 13:58 POC ABG HCO3 27.4 11/06/17 13:58 POC ABG Total CO2 29 11/06/17 13:58 POC ABG O2 Sat 95 11/06/17 13:58 POC ABG Base Excess 2 11/06/17 13:58 FiO2 40 % 11/06/17 13:58 Sodium 140 mmol/L (137-145) 11/08/17 06:58 Potassium 3.4 mmol/L (3.6-5.0) L 11/08/17 06:58 Chloride 95.5 mmol/L (98-107) L 11/08/17 06:58 Carbon Dioxide 35 mmol/L (22-30) H 11/08/17 06:58 Anion Gap 13 mmol/L 11/08/17 06:58 BUN 13 mg/dL (7-17) 11/08/17 06:58 Creatinine 0.4 mg/dL (0.7-1.2) L 11/08/17 06:58 Estimated GFR > 60 ml/min 11/08/17 06:58 BUN/Creatinine Ratio 33 % 11/08/17 06:58 Glucose 123 mg/dL (65-100) H 11/08/17 06:58 Hemoglobin A1c 5.2 % (4-6) 11/03/17 06:56 Lactic Acid 1.10 mmol/L (0.7-2.0) 11/04/17 19:19 Calcium 9.0 mg/dL (8.4-10.2) 11/08/17 06:58 Phosphorus 2.40 mg/dL (2.5-4.5) L 11/03/17 20:40 Magnesium 2.00 mg/dL (1.7-2.3) 11/08/17 06:58 Total Bilirubin 0.40 mg/dL (0.1-1.2) 11/03/17 02:17 AST 52 units/L (5-40) H 11/03/17 02:17 ALT 43 units/L (7-56) 11/03/17 02:17 Alkaline Phosphatase 105 units/L (35-129) 11/03/17 02:17 Ammonia 16.0 umol/L (25-60) L 11/06/17 12:35 Total Creatine Kinase 1456 units/L (30-135) H 11/03/17 12:10 CK-MB (CK-2) 10.7 ng/mL (0.0-4.0) H 11/03/17 12:10 CK-MB (CK-2) Rel Index 0.7 (0-4) 11/03/17 12:10 Troponin T 0.024 ng/mL (0.00-0.029) 11/03/17 12:10 C-Reactive Protein 1.40 mg/dL (0.00-1.30) H 11/03/17 20:40 NT-Pro-B Natriuret Pep 40.60 pg/mL (0-900) 11/03/17 02:17 Total Protein 6.8 g/dL (6.3-8.2) 11/03/17 02:17 Albumin 4.6 g/dL (3.9-5) 11/03/17 02:17 Albumin/Globulin Ratio 2.1 % 11/03/17 02:17 Triglycerides 130 mg/dL (2-149) 11/06/17 04:19 Cholesterol 117 mg/dL (50-199) 11/03/17 06:56 LDL Cholesterol Direct 45 mg/dL (50-130) L 11/03/17 06:56 HDL Cholesterol 76 mg/dL (40-59) H 11/03/17 06:56 Cholesterol/HDL Ratio 1.53 % 11/03/17 06:56 Urine Color Yellow (Yellow) 11/03/17 Unknown Urine Turbidity Clear (Clear) 11/03/17 Unknown Urine pH 8.0 (5.0-7.0) H 11/03/17 Unknown Ur Specific [place] 1.013 (1.003-1.030) 11/03/17 Unknown Urine Protein 100 mg/dl mg/dL (Negative) 11/03/17 Unknown Urine Glucose (UA) Neg mg/dL (Negative) 11/03/17 Unknown Urine Ketones Neg mg/dL (Negative) 11/03/17 Unknown Urine Blood Sm (Negative) 11/03/17 Unknown Urine Nitrite Neg (Negative) 11/03/17 Unknown Urine Bilirubin Neg (Negative) 11/03/17 Unknown Urine Urobilinogen < 2.0 mg/dL (<2.0) 11/03/17 Unknown Ur Leukocyte Esterase Neg (Negative) 11/03/17 Unknown Urine WBC (Auto) 7.0 /HPF (0.0-6.0) H 11/03/17 Unknown Urine RBC (Auto) 19.0 /HPF (0.0-6.0) 11/03/17 Unknown U Epithel Cells (Auto) 2.0 /HPF (0-13.0) 11/03/17 Unknown Urine Bacteria (Auto) 1+ /HPF (Negative) 11/03/17 Unknown Amorphous Crystals 1+ 11/03/17 Unknown Urine Mucus Few /HPF 11/03/17 Unknown Hepatitis A IgM Ab Non-reactive (NonReactive) 11/03/17 20:50 Hep Bs Antigen Non-reactive (Negative) 11/03/17 20:50 Hep B Core IgM Ab Non-reactive (NonReactive) 11/03/17 20:50 Hepatitis C Antibody Non-reactive (NonReactive) 11/03/17 20:50 Blood Type AB POSITIVE 11/03/17 11:12 Antibody Screen Negative 11/03/17 11:12
[2017-11-08] MEDS ORDERED: NORMODYNE IV PRN (17:55)
--- NOTE | 2017-11-08 18:47 | Progress Note ---
Assessment and Plan Patient alert, awake. Resting on nasal canula 3 litrs and o2 saturation running 94%.Patient says breathing better. still has some cough.Patient has history of smoking. Stopped smoking 4 years ago. - Patient Problems (1) Respiratory failure Current Visit: Yes Status: Acute Plan to address problem: Patient extubated and resting on 3 litrs O2. Continue Brovanna aerosol treatments q 12 hours. Recommend albuterol inhalor 2 puffs po q6 hours prn for shortness of breath. Continue I/V solumedrol Continue Pepcid. Recommend DVT prophylaxis with lovnox. (2) Chest pain Current Visit: No Status: Acute Plan to address problem: No complaint of chest pain today. Management as per cardiology. (3) Altered mental status Current Visit: Yes Status: Acute Plan to address problem: Patient alert, awake and oriented now. (4) Hyperammonemia Current Visit: Yes Status: Acute Plan to address problem: Management as per primary care. (5) HTN (hypertension) Current Visit: No Status: Chronic Plan to address problem: Management as per primary care. Subjective Date of service: 11/08/17 Principal diagnosis: Acute Hypoxemic Respiratory Failure; AE COPD Interval history: Patient alert, awake. Resting on nasal canula 3 litrs and O2 saturation running 94%.Patient says breathing better. still has some cough.Patient has history of smoking. Stopped smoking 4 years ago. Objective Vital Signs - 12hr 11/08/17 11/08/17 11/08/17 08:02 08:21 08:31 Temperature 97.7 F Pulse Rate 78 Pulse Rate [ 92 H 96 H Bilateral Throughout] Respiratory 18 Rate Respiratory 18 20 Rate [Bilateral Throughout] Blood Pressure 147/79 O2 Sat by Pulse 97 94 Oximetry 11/08/17 11/08/17 11/08/17 10:00 12:07 17:01 Temperature 98.0 F 98.0 F Pulse Rate 73 95 H 96 H Pulse Rate [ Bilateral Throughout] Respiratory 20 20 Rate Respiratory Rate [Bilateral Throughout] Blood Pressure 151/86 154/90 O2 Sat by Pulse 90 91 Oximetry Constitutional: no acute distress, alert Eyes: non-icteric ENT: oropharynx moist, other (ETT in place) Neck: supple, no lymphadenopathy, no JVD, other (no thyromegaly) Effort: mildly labored Ascultation: Bilateral: diminished breath sounds, wheezes, rhonchi Percussion: Bilateral: not dull Cardiovascular: regular rate and rhythm, other (no R/M) Gastrointestinal: normoactive bowel sounds, soft, non-tender, non-distended, other (no palpable HSM) Integumentary: normal Extremities: no cyanosis, no edema, pulses normal, no ischemia or petechiae Neurologic: normal mental status, non-focal exam, pupils equal and round, motor strength normal and Psychiatric: mood appropriate, affect normal CBC and BMP: 11/08/17 06:58 11/08/17 06:58 ABG, PT/INR, D-dimer: ABG POC ABG pH 7.370 (7.35-7.45) 11/06/17 13:58 POC ABG pCO2 47.3 (35-45) H 11/06/17 13:58 POC ABG pO2 79 (80-105) L 11/06/17 13:58 POC ABG HCO3 27.4 11/06/17 13:58 POC ABG Total CO2 29 11/06/17 13:58 POC ABG O2 Sat 95 11/06/17 13:58 PT/INR, D-dimer PT 13.9 Sec. (12.2-14.9) 11/03/17 02:57 INR 1.02 (0.87-1.13) 11/03/17 02:57 D-Dimer 2299.36 ng/mlDDU (0-234) H 11/03/17 20:50 Abnormal lab findings: Abnormal Labs 11/03/17 11/03/17 11/03/17 02:17 02:17 02:17 WBC 12.9 H Hgb 14.9 H Hct 44.5 H MCH 33 H MCHC Plt Count 119 L Basophils % (Manual) 2.0 H Seg Neutrophils # Man 7.9 H Basophils # (Manual) 0.3 H D-Dimer POC ABG pH POC ABG pCO2 POC ABG pO2 Potassium Chloride 92.5 L Carbon Dioxide 21 L BUN Creatinine Glucose 229 H Lactic Acid Calcium Phosphorus AST 52 H Ammonia 145.0 H Total Creatine Kinase 236 H CK-MB (CK-2) 5.1 H Troponin T C-Reactive Protein LDL Cholesterol Direct HDL Cholesterol Urine pH Urine WBC (Auto) 11/03/17 11/03/17 11/03/17 03:14 06:56 06:56 WBC Hgb Hct MCH MCHC Plt Count Basophils % (Manual) Seg Neutrophils # Man Basophils # (Manual) D-Dimer POC ABG pH 7.274 L POC ABG pCO2 66.0 H POC ABG pO2 552 H Potassium Chloride Carbon Dioxide BUN Creatinine Glucose Lactic Acid 2.30 H* Calcium Phosphorus AST Ammonia Total Creatine Kinase 1369 H CK-MB (CK-2) 10.6 H Troponin T C-Reactive Protein LDL Cholesterol Direct HDL Cholesterol Urine pH Urine WBC (Auto) 11/03/17 11/03/17 11/03/17 06:56 11:12 12:10 WBC Hgb Hct MCH MCHC Plt Count Basophils % (Manual) Seg Neutrophils # Man Basophils # (Manual) D-Dimer POC ABG pH POC ABG pCO2 POC ABG pO2 Potassium Chloride Carbon Dioxide BUN Creatinine Glucose Lactic Acid 2.20 H* Calcium Phosphorus AST Ammonia Total Creatine Kinase 1456 H CK-MB (CK-2) 10.7 H Troponin T 0.081 H D C-Reactive Protein LDL Cholesterol Direct 45 L HDL Cholesterol 76 H Urine pH Urine WBC (Auto) 11/03/17 11/03/17 11/03/17 20:40 20:50 Unknown WBC Hgb Hct MCH MCHC Plt Count Basophils % (Manual) Seg Neutrophils # Man Basophils # (Manual) D-Dimer 2299.36 H POC ABG pH POC ABG pCO2 POC ABG pO2 Potassium Chloride Carbon Dioxide BUN Creatinine Glucose Lactic Acid Calcium Phosphorus 2.40 L AST Ammonia Total Creatine Kinase CK-MB (CK-2) Troponin T C-Reactive Protein 1.40 H LDL Cholesterol Direct HDL Cholesterol Urine pH 8.0 H Urine WBC (Auto) 7.0 H 11/04/17 11/04/17 11/04/17 04:09 04:09 04:09 WBC 26.2 H Hgb Hct MCH 33 H MCHC Plt Count 78 L Basophils % (Manual) Seg Neutrophils # Man Basophils # (Manual) D-Dimer POC ABG pH POC ABG pCO2 POC ABG pO2 Potassium 3.2 L D Chloride Carbon Dioxide BUN Creatinine 0.4 L Glucose 119 H Lactic Acid Calcium 7.9 L Phosphorus AST Ammonia 73.0 H Total Creatine Kinase CK-MB (CK-2) Troponin T C-Reactive Protein LDL Cholesterol Direct HDL Cholesterol Urine pH Urine WBC (Auto) 05/06/18 05/07/18 05/07/18 05:36 05:23 13:12 WBC 28.5 H Hgb Hct MCH MCHC Plt Count 83 L Basophils % (Manual) Seg Neutrophils # Man Basophils # (Manual) D-Dimer POC ABG pH POC ABG pCO2 POC ABG pO2 70 L 155 H Potassium Chloride Carbon Dioxide BUN Creatinine Glucose Lactic Acid Calcium Phosphorus AST Ammonia Total Creatine Kinase CK-MB (CK-2) Troponin T C-Reactive Protein LDL Cholesterol Direct HDL Cholesterol Urine pH Urine WBC (Auto) 11/05/17 11/06/17 11/06/17 13:12 04:19 04:19 WBC 22.1 H Hgb Hct MCH MCHC Plt Count 66 L Basophils % (Manual) Seg Neutrophils # Man Basophils # (Manual) D-Dimer POC ABG pH POC ABG pCO2 POC ABG pO2 Potassium Chloride Carbon Dioxide BUN 18 H 18 H Creatinine 0.4 L 0.4 L Glucose 118 H 119 H Lactic Acid Calcium Phosphorus AST Ammonia Total Creatine Kinase CK-MB (CK-2) Troponin T C-Reactive Protein LDL Cholesterol Direct HDL Cholesterol Urine pH Urine WBC (Auto) 11/06/17 11/06/17 11/06/17 04:39 12:35 13:58 WBC Hgb Hct MCH MCHC Plt Count Basophils % (Manual) Seg Neutrophils # Man Basophils # (Manual) D-Dimer POC ABG pH POC ABG pCO2 47.3 H POC ABG pO2 52 L 79 L Potassium Chloride Carbon Dioxide BUN Creatinine Glucose Lactic Acid Calcium Phosphorus AST Ammonia 16.0 L Total Creatine Kinase CK-MB (CK-2) Troponin T C-Reactive Protein LDL Cholesterol Direct HDL Cholesterol Urine pH Urine WBC (Auto) 11/07/17 11/07/17 11/08/17 05:04 05:04 06:58 WBC 15.4 H 20.4 H Hgb 14.7 H Hct MCH 33 H MCHC 35 H Plt Count 64 L 79 L Basophils % (Manual) Seg Neutrophils # Man Basophils # (Manual) D-Dimer POC ABG pH POC ABG pCO2 POC ABG pO2 Potassium Chloride Carbon Dioxide 33 H BUN Creatinine 0.4 L Glucose 150 H Lactic Acid Calcium Phosphorus AST Ammonia Total Creatine Kinase CK-MB (CK-2) Troponin T C-Reactive Protein LDL Cholesterol Direct HDL Cholesterol Urine pH Urine WBC (Auto) 11/08/17 06:58 WBC Hgb Hct MCH MCHC Plt Count Basophils % (Manual) Seg Neutrophils # Man Basophils # (Manual) D-Dimer POC ABG pH POC ABG pCO2 POC ABG pO2 Potassium 3.4 L Chloride 95.5 L Carbon Dioxide 35 H BUN Creatinine 0.4 L Glucose 123 H Lactic Acid Calcium Phosphorus AST Ammonia Total Creatine Kinase CK-MB (CK-2) Troponin T C-Reactive Protein LDL Cholesterol Direct HDL Cholesterol Urine pH Urine WBC (Auto) Chest x-ray: report reviewed (Mild COPD,Atelectasis left lower lung.), image reviewed CT scan - chest: report reviewed (No evidence of PE. Moderate emohysema reported.), image reviewed Allied health notes reviewed: nursing
[2017-11-09] MEDS: PULMICORT IH SCH (08:14)
[2017-11-09] MEDS: BROVANA NEBU IH SCH (08:14)
--- NOTE | 2017-11-09 08:54 | Progress Note ---
Assessment and Plan Assessment: Acute respiratory failure - extubated COPD with acute exacerbation AMS Leukocytosis / ? aspiration PNA / ? sepsis Minimally elevated troponin Thrombocytopenia Hyperammonemia Elevated DDimer - chest CTA negative for PE Plan: Proceed with lexiscan MPI stress test in AM. NPO after MN. The patient has been seen in conjunction with Dr. Akers who agrees with the assessment and plan of care. Subjective Date of service: 11/08/17 Principal diagnosis: Acute Hypoxemic Respiratory Failure; AE COPD Interval history: pt resting comfortably in bed, on RA, no current cardiac complaints. Objective Last Vital Signs Temp 98.2 F 11/09/17 05:23 Pulse 82 11/09/17 05:23 Resp 18 11/09/17 05:23 BP 137/82 11/09/17 05:23 Pulse Ox 96 11/09/17 05:23 - Physical Examination General: No Apparent Distress HEENT: Positive: PERRL, Normocephaly, Mucus Membranes Moist Neck: Positive: neck supple Cardiac: Positive: Reg Rate and Rhythm, S1/S2 Lungs: Positive: clear to auscultation Neuro: Positive: Other (intubated, following commands) Abdomen: Positive: Soft Skin: Negative: Rash Extremities: Absent: edema - Imaging and Cardiology EKG: report reviewed, image reviewed Echo: report reviewed - EKG Sinus rhythms and dysrhythmias: sinus rhythm - Allied health notes Allied health notes reviewed: nursing
[2017-11-09] MEDS ORDERED: LEXISCAN IV ONE (11:36)
--- NOTE | 2017-11-09 13:07 | XRay Report ---
AP and lateral chest: COPD, respiratory failure. The heart is normal in size. There is no vascular congestion. There is blunting of the right costophrenic angle and findings consistent with right pleural fluid. Questionable small volume of left pleural fluid. The lungs appear somewhat hyperventilated but clear of any infiltrate or nodule. Compared to recent examination of November 07 the effusions appear new. The cardiopulmonary pattern is not otherwise changed. Impression: Interval development of nonspecific right and questionable left effusions.
--- NOTE | 2017-11-09 14:09 | Progress Note ---
Assessment and Plan Assessment: Acute respiratory failure - extubated COPD with acute exacerbation AMS Leukocytosis / ? aspiration PNA / ? sepsis Minimally elevated troponin Thrombocytopenia Hyperammonemia Elevated DDimer - chest CTA negative for PE Plan: S/p lexiscan MPI stress test today which was negative for ischemia, normal EF. Currently stable cardiac status. Pt may discharge home from cardiology standpoint. Recommend follow up in our office with Dr. Morton within 2 weeks of hospital discharge ([phone]). The patient has been seen in conjunction with Dr. Myers who agrees with the assessment and plan of care. Subjective Date of service: 11/09/17 Principal diagnosis: Acute Hypoxemic Respiratory Failure; AE COPD Interval history: pt for stress test, no current cardiac complaints. Objective Last Vital Signs Temp 98.2 F 11/09/17 05:23 Pulse 95 H 11/09/17 08:14 Resp 18 11/09/17 08:14 BP 137/82 11/09/17 05:23 Pulse Ox 96 11/09/17 08:14 - Physical Examination General: No Apparent Distress HEENT: Positive: PERRL, Normocephaly, Mucus Membranes Moist Neck: Positive: neck supple Cardiac: Positive: Reg Rate and Rhythm, S1/S2 Lungs: Positive: clear to auscultation Neuro: Positive: Grossly Intact Abdomen: Positive: Soft Skin: Negative: Rash Extremities: Absent: edema - Imaging and Cardiology EKG: report reviewed, image reviewed Echo: report reviewed - Telemetry EKG Rhythm: Sinus Rhythm - EKG Sinus rhythms and dysrhythmias: sinus rhythm - Allied health notes Allied health notes reviewed: nursing
--- NOTE | 2017-11-09 15:27 | Progress Note ---
Assessment and Plan Assessment and plan: Mrs. Brandon is a 62-year-old woman with history of hypertension and COPD, who presented to ED with severe sob and confusion requiring Intubation. per chart: The stated that her shortness of breath the night prior to presentation and at some point, she went to the bathroom and subsequently, he found her on the floor passed out and unresponsive. He then called 911. Patient continues on mechanical ventilation. Imaging studies of the brain unremarkable. She is currently being treated with antibiotics for suspicious aspiration pneumonia. Cardiology was consulted echocardiogram did not reveal any wall motion abnormality ejection fraction was 50-55%. She does have a history of COPD. At this point working diagnosis of syncope on the cause. If no significant improvement patient will benefit from a neurology consult. Acute respiratory failure with hypercapnea -Status post intubation and extubated to bipap yesterday -Will monitor with ABG level -Rule out pulmonary embolism Acute encephalopathy, probably secondary to carbon dioxide narcosis -Head CT scan is neg except for what noted old lacunar infarct on the right periventricular white matter -Will monitor clinically Acute COPD exacerbation -Patient will be placed on IV steroid and IV antibiotic SIRS/possible sepsis, exact source of infection unknown -Will place patient on IV antibiotic with levaquin -Follow up lactic acid level, sputum, urine and blood culture results -Chest x-ray is negative for acute infection on initial exam appears to highly suspicious of aspiration. Hyperglycemia -Will check hemoglobin A1c level Elevated hemoglobin/hematocrit, likely secondary to hemoconcentration -Will hydrate patient and monitor her H&H Thrombocytopenia * Monitor closely. Leukocytosis * Worse likely secondary to dementia normalization of steroids Elevated d-dimer * no pulmonary embolisim NSTEMI type II -No mention of wall motion abnormality EF is 50-55% on echocardiogram. And obtain cardiology consultation. Prophylaxis -DVT prophylaxis with Lovenox and GI prophylaxis with famotidine Transfer out of icu on Sunday evening, 11/06/17, remove NGT, patient eating with ngt and no n/v ischemic evaluation soon, d/w Cardiology, stress test in am Disposition: pt still using bipap at night and on o2, she is unfunded, so will need to improve so that bipap will not be needed==>bipap weaned off, she was 83 % room air on ambulation per my exam. She will pay 150/mo for o2. d/c once o2 setup History Interval history: Patient was seen and examined. Follow-up on current diagnosis of sob improved. Overnight uneventful. Patient denies any chest pain, shortness breath, nausea/ vomiting or severe headaches. Imaging, nursing note, chart, labs and old chart reviewed. Discussed with patient who is extubated now, still on bipap at night and 3 liters o2 nc Hospitalist Physical - Physical exam Narrative exam: GEN: WDWN, NAD, Awake, Alert, Orientated HEENT: NCAT, EOMI, PERRL, OP Clear, ngt in place NECK: supple, no adenopathy, no thyromegaly, no JVD CVS/HEART: RRR, normal S1S2, pulses present bilaterally CHEST/LUNGS: diminshed bs Symmetrical chest expansion, good air entry bilaterally GI/Abdomen: soft, NTND, good bowel sounds, no guarding or rebound /Bladder: no suprapubic tenderness, no CVA or paraspinal tenderness EXT/Skin: no c/c/e, no obvious rash MSK: FROM x 4 Neuro: CN 2-12 grossly intact, no new focal deficits Psych: calm - Constitutional Vitals: Temp Pulse Resp BP Pulse Ox 98.2 F 120 H 18 151/82 96 11/09/17 05:23 11/09/17 12:05 11/09/17 08:14 11/09/17 12:05 11/09/17 08:14 General appearance: Present: no acute distress, other (patient is intubated and sedated) Results - Labs CBC & Chem 7: 11/08/17 06:58 11/08/17 06:58 Labs: Laboratory Last Values WBC 20.4 K/mm3 (4.5-11.0) H 11/08/17 06:58 RBC 4.50 M/mm3 (3.65-5.03) 11/08/17 06:58 Hgb 14.7 gm/dl (10.1-14.3) H 11/08/17 06:58 Hct 42.6 % (30.3-42.9) 11/08/17 06:58 MCV 95 fl (79-97) 11/08/17 06:58 MCH 33 pg (28-32) H 11/08/17 06:58 MCHC 35 % (30-34) H 11/08/17 06:58 RDW 13.3 % (13.2-15.2) 11/08/17 06:58 Plt Count 79 K/mm3 (140-440) L 11/08/17 06:58 Add Manual Diff Complete 11/03/17 02:17 Total Counted 100 11/03/17 02:17 Seg Neuts % (Manual) 61.0 % (40.0-70.0) 11/03/17 02:17 Band Neutrophils % 6.0 % 11/03/17 02:17 Lymphocytes % (Manual) 29.0 % (13.4-35.0) 11/03/17 02:17 Reactive Lymphs % (Man) 0 % 11/03/17 02:17 Monocytes % (Manual) 1.0 % (0.0-7.3) 11/03/17 02:17 Eosinophils % (Manual) 1.0 % (0.0-4.3) 11/03/17 02:17 Basophils % (Manual) 2.0 % (0.0-1.8) H 11/03/17 02:17 Metamyelocytes % 0 % 11/03/17 02:17 Myelocytes % 0 % 11/03/17 02:17 Promyelocytes % 0 % 11/03/17 02:17 Blast Cells % 0 % 11/03/17 02:17 Nucleated RBC % Not Reportable 11/03/17 02:17 Seg Neutrophils # Man 7.9 K/mm3 (1.8-7.7) H 11/03/17 02:17 Band Neutrophils # 0.8 K/mm3 11/03/17 02:17 Lymphocytes # (Manual) 3.7 K/mm3 (1.2-5.4) 11/03/17 02:17 Abs React Lymphs (Man) 0.0 K/mm3 11/03/17 02:17 Monocytes # (Manual) 0.1 K/mm3 (0.0-0.8) 11/03/17 02:17 Eosinophils # (Manual) 0.1 K/mm3 (0.0-0.4) 11/03/17 02:17 Basophils # (Manual) 0.3 K/mm3 (0.0-0.1) H 11/03/17 02:17 Metamyelocytes # 0.0 K/mm3 11/03/17 02:17 Myelocytes # 0.0 K/mm3 11/03/17 02:17 Promyelocytes # 0.0 K/mm3 11/03/17 02:17 Blast Cells # 0.0 K/mm3 11/03/17 02:17 WBC Morphology Not Reportable 11/03/17 02:17 Hypersegmented Neuts Not Reportable 11/03/17 02:17 Hyposegmented Neuts Not Reportable 11/03/17 02:17 Hypogranular Neuts Not Reportable 11/03/17 02:17 Smudge Cells Not Reportable 11/03/17 02:17 Toxic Granulation Not Reportable 11/03/17 02:17 Toxic Vacuolation Not Reportable 11/03/17 02:17 Dohle Bodies Not Reportable 11/03/17 02:17 Pelger-Huet Anomaly Not Reportable 11/03/17 02:17 Jose Rods Not Reportable 11/03/17 02:17 Platelet Estimate Consistent w auto 11/03/17 02:17 Clumped Platelets Not Reportable 11/03/17 02:17 Plt Clumps, EDTA Not Reportable 11/03/17 02:17 Large Platelets Few 11/03/17 02:17 Giant Platelets Not Reportable 11/03/17 02:17 Platelet Satelliting Not Reportable 11/03/17 02:17 Plt Morphology Comment Not Reportable 11/03/17 02:17 RBC Morphology Normal 11/03/17 02:17 Dimorphic RBCs Not Reportable 11/03/17 02:17 Polychromasia Not Reportable 11/03/17 02:17 Hypochromasia Not Reportable 11/03/17 02:17 Poikilocytosis Not Reportable 11/03/17 02:17 Anisocytosis Not Reportable 11/03/17 02:17 Microcytosis Not Reportable 11/03/17 02:17 Macrocytosis Not Reportable 11/03/17 02:17 Spherocytes Not Reportable 11/03/17 02:17 Pappenheimer Bodies Not Reportable 11/03/17 02:17 Sickle Cells Not Reportable 11/03/17 02:17 Target Cells Not Reportable 11/03/17 02:17 Tear Drop Cells Not Reportable 11/03/17 02:17 Ovalocytes Not Reportable 11/03/17 02:17 Helmet Cells Not Reportable 11/03/17 02:17 [place] Bodies Not Reportable 11/03/17 02:17 [place] Rings Not Reportable 11/03/17 02:17 [place] Cells Not Reportable 11/03/17 02:17 Bite Cells Not Reportable 11/03/17 02:17 Crenated Cell Not Reportable 11/03/17 02:17 Elliptocytes Not Reportable 11/03/17 02:17 Acanthocytes (Spur) Not Reportable 11/03/17 02:17 Rouleaux Not Reportable 11/03/17 02:17 Hemoglobin C Crystals Not Reportable 11/03/17 02:17 Schistocytes Not Reportable 11/03/17 02:17 Malaria parasites Not Reportable 11/03/17 02:17 Dennis Bodies Not Reportable 11/03/17 02:17 Hem Pathologist Commnt No 11/03/17 02:17 PT 13.9 Sec. (12.2-14.9) 11/03/17 02:57 INR 1.02 (0.87-1.13) 11/03/17 02:57 APTT 27.4 Sec. (24.2-36.6) 11/03/17 02:57 D-Dimer 2299.36 ng/mlDDU (0-234) H 11/03/17 20:50 POC ABG pH 7.605 (7.35-7.45) H 11/09/17 09:47 POC ABG pCO2 33.5 (35-45) L 11/09/17 09:47 POC ABG pO2 53 (80-105) L 11/09/17 09:47 POC ABG HCO3 33.3 11/09/17 09:47 POC ABG Total CO2 34 11/09/17 09:47 POC ABG O2 Sat 92 11/09/17 09:47 POC ABG Base Excess 12 11/09/17 09:47 FiO2 21 % 11/09/17 09:47 Sodium 140 mmol/L (137-145) 11/08/17 06:58 Potassium 3.4 mmol/L (3.6-5.0) L 11/08/17 06:58 Chloride 95.5 mmol/L (98-107) L 11/08/17 06:58 Carbon Dioxide 35 mmol/L (22-30) H 11/08/17 06:58 Anion Gap 13 mmol/L 11/08/17 06:58 BUN 13 mg/dL (7-17) 11/08/17 06:58 Creatinine 0.4 mg/dL (0.7-1.2) L 11/08/17 06:58 Estimated GFR > 60 ml/min 11/08/17 06:58 BUN/Creatinine Ratio 33 % 11/08/17 06:58 Glucose 123 mg/dL (65-100) H 11/08/17 06:58 Hemoglobin A1c 5.2 % (4-6) 11/03/17 06:56 Lactic Acid 1.10 mmol/L (0.7-2.0) 11/04/17 19:19 Calcium 9.0 mg/dL (8.4-10.2) 11/08/17 06:58 Phosphorus 2.40 mg/dL (2.5-4.5) L 11/03/17 20:40 Magnesium 2.00 mg/dL (1.7-2.3) 11/08/17 06:58 Total Bilirubin 0.40 mg/dL (0.1-1.2) 11/03/17 02:17 AST 52 units/L (5-40) H 11/03/17 02:17 ALT 43 units/L (7-56) 11/03/17 02:17 Alkaline Phosphatase 105 units/L (35-129) 11/03/17 02:17 Ammonia 16.0 umol/L (25-60) L 11/06/17 12:35 Total Creatine Kinase 1456 units/L (30-135) H 11/03/17 12:10 CK-MB (CK-2) 10.7 ng/mL (0.0-4.0) H 11/03/17 12:10 CK-MB (CK-2) Rel Index 0.7 (0-4) 11/03/17 12:10 Troponin T 0.024 ng/mL (0.00-0.029) 11/03/17 12:10 C-Reactive Protein 1.40 mg/dL (0.00-1.30) H 11/03/17 20:40 NT-Pro-B Natriuret Pep 40.60 pg/mL (0-900) 11/03/17 02:17 Total Protein 6.8 g/dL (6.3-8.2) 11/03/17 02:17 Albumin 4.6 g/dL (3.9-5) 11/03/17 02:17 Albumin/Globulin Ratio 2.1 % 11/03/17 02:17 Triglycerides 130 mg/dL (2-149) 11/06/17 04:19 Cholesterol 117 mg/dL (50-199) 11/03/17 06:56 LDL Cholesterol Direct 45 mg/dL (50-130) L 11/03/17 06:56 HDL Cholesterol 76 mg/dL (40-59) H 11/03/17 06:56 Cholesterol/HDL Ratio 1.53 % 11/03/17 06:56 Urine Color Yellow (Yellow) 11/03/17 Unknown Urine Turbidity Clear (Clear) 11/03/17 Unknown Urine pH 8.0 (5.0-7.0) H 11/03/17 Unknown Ur Specific [place] 1.013 (1.003-1.030) 11/03/17 Unknown Urine Protein 100 mg/dl mg/dL (Negative) 11/03/17 Unknown Urine Glucose (UA) Neg mg/dL (Negative) 11/03/17 Unknown Urine Ketones Neg mg/dL (Negative) 11/03/17 Unknown Urine Blood Sm (Negative) 11/03/17 Unknown Urine Nitrite Neg (Negative) 11/03/17 Unknown Urine Bilirubin Neg (Negative) 11/03/17 Unknown Urine Urobilinogen < 2.0 mg/dL (<2.0) 11/03/17 Unknown Ur Leukocyte Esterase Neg (Negative) 11/03/17 Unknown Urine WBC (Auto) 7.0 /HPF (0.0-6.0) H 11/03/17 Unknown Urine RBC (Auto) 19.0 /HPF (0.0-6.0) 11/03/17 Unknown U Epithel Cells (Auto) 2.0 /HPF (0-13.0) 11/03/17 Unknown Urine Bacteria (Auto) 1+ /HPF (Negative) 11/03/17 Unknown Amorphous Crystals 1+ 11/03/17 Unknown Urine Mucus Few /HPF 11/03/17 Unknown Hepatitis A IgM Ab Non-reactive (NonReactive) 11/03/17 20:50 Hep Bs Antigen Non-reactive (Negative) 11/03/17 20:50 Hep B Core IgM Ab Non-reactive (NonReactive) 11/03/17 20:50 Hepatitis C Antibody Non-reactive (NonReactive) 11/03/17 20:50 Blood Type AB POSITIVE 11/03/17 11:12 Antibody Screen Negative 11/03/17 11:12
--- NOTE | 2017-11-09 15:38 | Discharge Summary ---
Providers - Providers Date of Admission: 11/03/17 06:07 Date of discharge: 11/09/17 Attending physician: JENNA GOMEZ 11/03/17 03:27 Consult to Dietitian/Nutrition [CONS] Routine Physician Instructions: Reason For Exam: Reason for Consult: Evaluate nutritional intake 11/03/17 06:09 Consult to Physician [CONS] Routine Comment: A/S NOTIFIED YOEL [id number] Consulting Provider: CLARE MARTINEZ Physician Instructions: Reason For Exam: respiratory failure 11/03/17 08:38 Consult to Physician [CONS] Routine Comment: Consulting Provider: FRANDY ZALDIVAR Physician Instructions: Reason For Exam: nstemi type 2 Primary care physician: [employer]ICE SALES CONSULTANT Hospitalization Condition: Stable Hospital course: Mrs. Brandon is a 62-year-old woman with history of hypertension and COPD, who presented to ED with severe sob and confusion requiring Intubation. per chart: The stated that her shortness of breath the night prior to presentation and at some point, she went to the bathroom and subsequently, he found her on the floor passed out and unresponsive. He then called 911. Patient continues on mechanical ventilation. Imaging studies of the brain unremarkable. She is currently being treated with antibiotics for suspicious aspiration pneumonia. Cardiology was consulted echocardiogram did not reveal any wall motion abnormality ejection fraction was 50-55%. She does have a history of COPD. At this point working diagnosis of syncope on the cause. If no significant improvement patient will benefit from a neurology consult. Acute respiratory failure with hypercapnea -Status post intubation and extubated to bipap, now bipap weaned off -Will monitor with ABG level -Ruled out pulmonary embolism with cta, Acute encephalopathy, probably secondary to carbon dioxide narcosis -Head CT scan is neg except for what noted old lacunar infarct on the right periventricular white matter -Will monitor clinically Acute COPD exacerbation -Patient will be placed on IV steroid and IV antibiotic Sepsis acute bronchitis, poa -Will place patient on IV antibiotic with levaquin -Follow up lactic acid level, sputum, urine and blood culture results -Chest x-ray is negative for acute infection on initial exam appears to highly suspicious of aspiration. Hyperglycemia -Will check hemoglobin A1c level==>5.2, non dm Elevated hemoglobin/hematocrit, likely secondary to hemoconcentration -Will hydrate patient and monitor her H&H Thrombocytopenia * Monitor closely. Leukocytosis * Worse likely secondary to steroids Elevated d-dimer * no pulmonary embolisim NSTEMI type II -No mention of wall motion abnormality EF is 50-55% on echocardiogram. Cardiology did stress test 11/09/17 and he ok to d/c Prophylaxis -DVT prophylaxis with Lovenox and GI prophylaxis with famotidine Transfer out of icu on Sunday evening, 11/06/17, removed NGT, patient eating with ngt and no n/v ischemic evaluation soon, d/w Cardiology, stress test negative Disposition: pt still using bipap at night and on o2, she is unfunded, so will need to improve so that bipap will not be needed==>bipap weaned off, she was 83 % room air on ambulation per my exam. She will pay 150/mo for o2. d/c once o2 setup Disposition: TO HOME OR SELFCARE Time spent for discharge: 35 minutes Core Measure Documentation - Palliative Care Palliative Care/ Comfort Measures: Not Applicable - Core Measures Any of the following diagnoses?: none - VTE Discharge Requirements Deep Vein Thrombosis/Pulmonary Embolism Present on Admission: No Has pt received <5 days of overlap therapy or INR<2.0: No Anticoagulant overlap therapy prescribed at discharge: No Contraindication No Overlap Therapy order at DC: Not Indicated Exam - Physical Exam Narrative exam: GEN: WDWN, NAD, Awake, Alert, Orientated HEENT: NCAT, EOMI, PERRL, OP Clear, ngt in place NECK: supple, no adenopathy, no thyromegaly, no JVD CVS/HEART: reg tachy stress/neb treatment, normal S1S2, pulses present bilaterally CHEST/LUNGS: diminshed bs Symmetrical chest expansion, good air entry bilaterally GI/Abdomen: soft, NTND, good bowel sounds, no guarding or rebound /Bladder: no suprapubic tenderness, no CVA or paraspinal tenderness EXT/Skin: no c/c/e, no obvious rash MSK: FROM x 4 Neuro: CN 2-12 grossly intact, no new focal deficits Psych: calm - Constitutional Vitals: Temp Pulse Resp BP Pulse Ox 98.2 F 120 H 18 151/82 96 11/09/17 05:23 11/09/17 12:05 11/09/17 08:14 11/09/17 12:05 11/09/17 08:14 Plan Activity: other (no strenous activities) Diet: low salt Durable Medical Equipment Needed Upon Discharge: Oxygen, Nebulizer Follow up with: PRIMARY CARE, [Primary Care Provider] - 3-5 Days CLARE MARTINEZ MD [Staff Physician] - 7 Days FRANDY ZALDIVAR MD [Staff Physician] - 7 Days Prescriptions: ALBUTEROL Inhaler [ProAir HFA Inhaler] 2 puff IH QID PRN #1 inhalation PRN Reason: Shortness Of Breath amLODIPine [Norvasc] 10 mg PO DAILY #30 tablet Budesonide/Formoterol Fumarate [Symbicort 160-4.5 Mcg Inhaler] 10.2 gm IH BID # 1 [id number].[email or web address] Prednisone [predniSONE 10 mg (6-Day Pack, 21 Tabs)] 10 mg PO .TAPER #1 tab.ds.pk
[2017-11-09 15:42] VITALS: BP 151/87
[2017-11-09 17:27] LABS: Heparin-Induced Platelet Antib Negative (Negative); Unfractionated Heparin Negative (Negative)
--- NOTE | 2017-11-10 06:09 | Treadmill Report ---
PROCEDURE: Single isotope dual study myocardial perfusion scan report REFERRING PHYSICIAN: Dr. Luciano Alvarado. Seen and dictated by Dr. Anu Lubin. DESCRIPTION OF PROCEDURE: The patient received 10 mCi of technetium 99m Myoview intravenously under resting condition, where resting myocardial perfusion scan was done. Subsequently, the patient underwent Lexiscan stress test as per the protocol. During Lexiscan stress, the patient received 28 mCi of technetium 99m Myoview intravenously. After 30-60 minutes, post stress images were done. Computerized reconstruction images were performed for analysis. The post-stress images did not reveal any perfusion abnormality. The gated study did not reveal any wall motion abnormality. The left ventricular ejection fraction was normal and it was found to be hyperdynamic with ejection fraction of 83%. The resting images were also normal. CONCLUSION: 1. Normal resting as well as stress myocardial perfusion scan images after the patient underwent Lexiscan stress test. 2. No wall motion abnormality. 3. Hyperdynamic left ventricle with LVEF of 83%. JOB# [id number] [facility]
== END 2017-11-09 17:45 | disposition home or self-care (01) | DRG 871 ==
LOC: ED 01:33 → CC1 06:07 → 4A 11-07 19:46
PROVIDERS: ADMIT Internal Medicine; ATTEND Internal Medicine
PROC: 5A1945Z Respiratory Ventilation, 24-96 Consecutive Hours (ICD-10-PCS; 2017-11-03)
PROC: 0BH17EZ Insertion of Endotracheal Airway into Trachea, Via Natural or Artificial Opening (ICD-10-PCS; 2017-11-03)
PROC: 4A033R1 Measurement of Arterial Saturation, Peripheral, Percutaneous Approach (ICD-10-PCS; principal; 2017-11-06)
PROC: 5A09357 Assistance with Respiratory Ventilation, Less than 24 Consecutive Hours, Continuous Positive Airway Pressure (ICD-10-PCS; 2017-11-07)
PROC: 5A09357 Assistance with Respiratory Ventilation, Less than 24 Consecutive Hours, Continuous Positive Airway Pressure (ICD-10-PCS; 2017-11-08)
DX: A41.9 Sepsis, unspecified organism (principal); G93.40 Encephalopathy, unspecified; I21.A1 Myocardial infarction type 2; J96.02 Acute respiratory failure with hypercapnia; E72.20 Disorder of urea cycle metabolism, unspecified; J44.1 Chronic obstructive pulmonary disease with (acute) exacerbation; J44.0 Chronic obstructive pulmonary disease with (acute) lower respiratory infection; I10 Essential (primary) hypertension; R73.9 Hyperglycemia, unspecified; D69.6 Thrombocytopenia, unspecified; K72.90 Hepatic failure, unspecified without coma; J20.9 Acute bronchitis, unspecified; J44.9 Chronic obstructive pulmonary disease, unspecified; Z79.899 Other long term (current) drug therapy; Z82.5 Family history of asthma and other chronic lower respiratory diseases; Z87.891 Personal history of nicotine dependence
CPT/HCPCS: 36415; 36600; 70450; 71045; 71046; 71275; 74018; 78452; 80048; 80053; 80061; 80074; 81001; 82140; 82550; 82553; 82803; 83036; 83735; 83880; 84100; 84478; 84484; 85007; 85025; 85027; 85379; 85610; 85730; 86022; 86140; 86850; 86900; 86901; 87040; 87070; 87086; 87205; 93005; 93010; 93017; 93306; 94002; 94003; 94640; 94660; 94760; A9502; J0330; J1650; J1956; J2001; J2060; J2250; J2405; J2704; J2765; J2785; J2930; J3010; J3370; J3475; J3480; J7030; J7040; J7050; Q9967